=== PATIENT | female | born 1940 | race Hispanic/Latino ===

== ENCOUNTER 2018-03-10 08:23 | Observation (INO) | payer MEDICARE, OTHER ==
[2018-03-07 09:13] LABS: BASOPHILS # (AUTO) 0.1 (0.0-0.1); BASOPHILS % 0.8 % (0.0-1.0); EOSINOPHILS # (AUTO) 0.3 (0.0-0.4); EOSINOPHILS % 3.9 % (0.0-6.0); HEMATOCRIT 34.4 % (34.2-44.1); HEMOGLOBIN 11.5 g/dL (12.0-16.0); LYMPHOCYTES # (AUTO) 1.9 (1.0-3.2); LYMPHOCYTES % 25.3 % (18.0-39.1); MEAN CORPUSCULAR HEMOGLOBIN 31.1 pg (28-32); MEAN CORPUSCULAR HGB CONC 33.4 g/dL (31-35); MONOCYTES # (AUTO) 0.5 (0.2-0.8); MONOCYTES % 6.8 % (4.4-11.3); NEUTROPHILS # (AUTO) 4.8 (2.1-6.9); NEUTROPHILS % 63.1 % (38.7-80.0); PLATELET COUNT 183 x10e3/uL (140-360); RED CELL DISTRIBUTION WIDTH 12.9 % (11.7-14.4)
[2018-03-07 09:34] LABS: BLOOD UREA NITROGEN 18 mg/dL (7-26); BUN/CREATININE RATIO 24 (6-25); CALCIUM 9.4 mg/dL (8.4-10.2); CARBON DIOXIDE 29 mmol/L (22-29); CHLORIDE 104 mmol/L (98-107); CREATININE, SERUM 0.74 mg/dL (0.57-1.11); EST GLOMERULAR FILTRATION RATE > 60 ML/MIN (60-); GLUCOSE 112 mg/dL (74-118); SODIUM 141 mmol/L (136-145)
--- NOTE | 2018-03-07 09:38 | Diagnostic Imaging Report ---
PROCEDURE:CHEST 2 VIEWS TECHNIQUE:PA and lateral chest INDICATION:Preoperative evaluation for gallbladder surgery. COMPARISON:None. FINDINGS: Lungs are clear and symmetrically inflated. No pleural effusions. Normal heart size, mediastinal contour, and pulmonary vasculature. Intact skeleton with mild degenerative disc disease. Mild abdominal aortic atherosclerosis. CONCLUSION: No acute abnormality. Dictated by: Jamil Gao M.D. on 03/07/2018 at 9:38 Electronically approved by: Jamil Gao M.D. on 03/07/2018 at 9:38
[~2018-03-10] VITALS: Ht 152.4 cm; Wt 82.6 kg
[~2018-03-10 08:23] MED LIST: ALENDRONATE SOD70 MG; AMARYL2 MG; ASPIRIN81 MG; ATORVASTATIN CA40 MG PO; BUPROPION HCL75 MG PO; CALCIUM 1,0001 EACH; CELEBREX100 MG PO; CYMBALTA30 MG; GABAPENTIN100 MG; HYDROCHLOROTHIA25 MG; JANUVIA100 MG; LANTUS SOLOSTAR; LANTUS100 UNITS/; LEVOTHYROXINE200 MCG PO; LORAZEPAM1 MG; MELOXICAM15 MG PO; METFORMIN HCL500 M2 PO; MIRTAZAPINE15 MG PO; NITROGLYCERIN0.4 MG SL; NORTRIPTYLINE H25 MG; NORVASC5 MG PO; OMEGA-31000 MG; OXYBUTYNIN CHLO15 MG; PANTOPRAZOLE SO40 MG PO; PEPTO-BISMOL262 M1; PRINIVIL20 MG PO; REGLAN5 MG; RIVASTIGMINE1.5 MG PO; ROPIVACAINE 246.25 MG, EPINEPHRINE HCL 1:1000 0.5 MG, CLONIDINE HCL 0.08 MG, KETOROLAC ... INJ ONE; STOOL SOFTENER100 MG; TYLENOL PO
--- OUTSIDE RECORDS SUMMARY | 2018-03-10 08:26 | XMS REPORT ---
Author Author [facility] Address Unknown Phone Unavailable Care Team Providers Care Deputy Probation Officer Name Role Phone BETTE TURNER Unavailable Unavailable Problems This patient has no known problems. Allergies, Adverse Reactions, Alerts This patient has no known allergies or adverse reactions. Medications This patient has no known medications. Results Test Description Test Time Test Comments Text Results Atomic Results Result Comments CHEST 2 VIEWS [place] [address] Patient Name: ABHISHEK BAH MR #: [id number] : 1940 Age/Sex: 78/F Req # : [id number] Adm Physician: Ordered by: GILMA SANDERSON MD Report #: [id number] Location: OR Room/Bed: Procedure: [id number] DX/CHEST 2 VIEWS Exam Date: 03/07/18 Exam Time: 914 REPORT STATUS: Signed PROCEDURE: CHEST 2 VIEWS TECHNIQUE: PA and lateral chest INDICATION: Preoperative evaluation for gallbladder surgery. COMPARISON: None. FINDINGS: Lungs are clear and symmetrically inflated. No pleural effusions. Normal heart size, mediastinal contour, and pulmonary vasculature. Intact skeleton with mild degenerative disc disease. Mild abdominal aortic atherosclerosis. CONCLUSION: No acute abnormality. Dictated by: Gallo Gao M.D. on 05/2018 at 9:38 Electronically approved by: Gallo Gao M.D. on 03/07/2018 at 9:38 Dictated By: GALLO GAO MD 7 Transcribed By: NALINI on 03/07/18937 COPY TO: GILMA SANDERSON III
[2018-03-10] MEDS ORDERED: CELECOXIB 200 MG CAP ONE (08:30)
[2018-03-10] MEDS ORDERED: GABAPENTIN 300 MG CAP ONE (08:31)
[2018-03-10] MEDS ORDERED: CEFAZOLIN SOD 2 GM/D5W 50ML 50 ML IV ONE (08:31)
[2018-03-10] MEDS ORDERED: DEXAMETHASONE SOD PHOS 10 MG/1 ML VIAL ONE (08:31)
[2018-03-10] MEDS ORDERED: MUPIROCIN 2% OINT 22 GM TUBE ONE (08:55)
[2018-03-10] MEDS ORDERED: TRANEXAMIC ACID 1,000 MG/10 ML ML ONE (08:55)
[2018-03-10] MEDS ORDERED: BACITRACIN 50,000 UNIT VIAL ONE (08:56)
[2018-03-10] MEDS ORDERED: KETOROLAC TROMETHAMINE 30 MG/ML VIAL IV PRN (11:15)
[2018-03-10] MEDS ORDERED: DIPHENHYDRAMINE HCL INJ 50 MG/ML VIAL IM/IV PRN (11:15)
[2018-03-10] MEDS ORDERED: ONDANSETRON HCL INJ 2 MG/ML VIAL IV PRN (11:15)
[2018-03-10] MEDS ORDERED: DOCUSATE SODIUM 100 MG CAP PO PRN ×2 (11:15→21:00)
[2018-03-10] MEDS ORDERED: ACETAMINOPHEN 650 MG SUPP PR PRN (11:15)
[2018-03-10] MEDS ORDERED: HYDROCODONE/APAP 7.5MG-325MG 1 EA TAB PO PRN (11:15)
[2018-03-10] MEDS ORDERED: HYDROCODONE/APAP 5MG-325MG TAB PO PRN (11:15)
[2018-03-10] MEDS ORDERED: PROMETHAZINE HCL (IM) 25 MG/ML VIAL IM PRN (11:15)
[2018-03-10] MEDS: ACETAMINOPHEN 1000 MG/100 ML IV SCH ×2 (12:00→15:18)
--- NOTE | 2018-03-10 12:13 | Diagnostic Imaging Report ---
PROCEDURE:X-RAY LEFT KNEE, ONE OR TWO VIEWS COMPARISON:None. INDICATIONS:POST OP KNEE LEFT FINDINGS:Status post total left knee arthroplasty with intact prosthesis in adequate anatomic alignment. There is post-operative suprapatellar effusion, soft tissue swelling and gas. Multiple surgical skin slade. No acute fracture-dislocation. No definite intra-osseous lesion. CONCLUSION:Status post total left knee arthroplasty with intact prosthesis in adequate anatomic alignment. Dictated by: Peter Mccord M.D. on 03/10/2018 at 12:14 Electronically approved by: Peter Mccord M.D. on 03/10/2018 at 12:14
[2018-03-10] MEDS: SODIUM CHLORIDE 0.9% 1000ML 1,000 ML IV SCH ×2 (13:10→23:25)
[2018-03-10] MEDS ORDERED: CEFAZOLIN SOD 1 GM/NS 50ML 50 ML IV SCH (14:00)
[2018-03-10 14:38] VITALS: BP 113/57
[2018-03-10 14:40] VITALS: BP 113/57
[2018-03-10] MEDS ORDERED: LIDOCAINE HCL 2% LOCAL 20 ML VIAL ONE (17:17)
[2018-03-10] MEDS ORDERED: LIDOCAINE 2% /EPINEPHRINE 20 ML SDV INJ ONE (17:17)
[2018-03-10] MEDS ORDERED: ROPIVACAINE 0.5% 5 MG/ML 30 ML SDV ONE (17:17)
[2018-03-10] MEDS ORDERED: FENTANYL CITRATE/PF 100MCG/2 ML INJ ONE (17:22)
[2018-03-10] MEDS ORDERED: MIDAZOLAM HCL 2 MG/2 ML VIAL ONE (17:22)
[2018-03-10] MEDS: CEFAZOLIN SOD 1 GM VIAL IV SCH (17:39)
[2018-03-10] MEDS: CELECOXIB 200 MG CAP PO SCH (17:39)
[2018-03-10] MEDS: ASPIRIN 325 MG TAB PO SCH (17:39)
[2018-03-10] MEDS ORDERED: ONDANSETRON HCL INJ 2 MG/ML VIAL ONE (17:54)
[2018-03-10] MEDS ORDERED: PROPOFOL IV EMULSION 10 MG/ML 20 ML VIAL ONE (17:54)
[2018-03-10] MEDS ORDERED: LIDOCAINE HCL 2% LOCAL INJ 5 ML SDV VIAL INJ ONE (17:54)
[2018-03-10] MEDS ORDERED: DEXAMETHASONE SOD PHOS INJ 4 MG/ML VIAL ONE (17:54)
[2018-03-10] MEDS ORDERED: SEVOFLURANE INHAL SOLN 250 ML PEN BTL ONE (17:54)
[2018-03-10] MEDS ORDERED: NITROGLYCERIN 0.4 MG SUBL SL PRN (19:00)
[2018-03-10] MEDS ORDERED: DEXTROSE 50% SYRINGE 50 ML IV PRN (19:00)
[2018-03-10] MEDS ORDERED: BISMUTH SUBSALICYLATE 262 MG TAB PO PRN ×2 (19:00→19:15)
[2018-03-10] MEDS ORDERED: NON-FORMULARY MEDICATION (Meloxicam 15 MG) PO PRN (19:00)
[2018-03-10 20:00] VITALS: BP 97/47
[2018-03-10] MEDS ORDERED: MIRTAZAPINE 15 MG TAB PO SCH (21:00)
[2018-03-10] MEDS ORDERED: LANTUS SCH (21:00)
[2018-03-10] MEDS ORDERED: ZOLPIDEM TARTRATE 5 MG TAB PO PRN (21:00)
[2018-03-10] MEDS ORDERED: INSULIN DETEMIR 100 UNIT/ML PEN SQ SCH (21:00)
[2018-03-10] MEDS ORDERED: NON-FORMULARY MEDICATION (Atorvastatin Calcium 40 MG) PO SCH (21:00)
[2018-03-10] MEDS ORDERED: ATORVASTATIN 40 MG TAB PO SCH (21:00)
[2018-03-10] MEDS: RIVASTIGMINE TARTRATE 1.5 MG CAP PO SCH (23:24)
[2018-03-10] MEDS: LISINOPRIL 20 MG TAB PO SCH (23:25)
[2018-03-10] MEDS: PANTOPRAZOLE SOD 40 MG TABEC PO SCH (23:25)
[2018-03-11] VITALS: BP 124/57
[2018-03-11] MEDS: ACETAMINOPHEN 1000 MG/100 ML IV SCH ×2 (00:32→06:05)
[2018-03-11] MEDS: CEFAZOLIN SOD 1 GM VIAL IV SCH ×2 (03:50→09:00)
[2018-03-11 04:00] VITALS: BP 124/65
[2018-03-11] MEDS: INSULIN REGULAR, HUMAN 100 UNIT/1 ML 3ML VIAL SQ SCH ×3 (04:11→11:38)
[2018-03-11] MEDS ORDERED: NON-FORMULARY MEDICATION (Levothyroxine Sodium 175 MCG) PO SCH (06:00)
[2018-03-11] MEDS ORDERED: LEVOTHYROXINE SODIUM 100 MCG TAB PO SCH (06:00)
[2018-03-11] MEDS ORDERED: LEVOTHYROXINE SODIUM 75 MCG TAB PO SCH (06:00)
[2018-03-11 07:01] LABS: HEMATOCRIT 28.1 % (34.2-44.1); HEMOGLOBIN 9.3 g/dL (12.0-16.0)
[2018-03-11] MEDS: SODIUM CHLORIDE 0.9% 1000ML 1,000 ML IV SCH (07:06)
[2018-03-11] MEDS: ASPIRIN 325 MG TAB PO SCH (08:35)
[2018-03-11] MEDS: RIVASTIGMINE TARTRATE 1.5 MG CAP PO SCH (08:35)
[2018-03-11] MEDS: CELECOXIB 200 MG CAP PO SCH (08:35)
[2018-03-11] MEDS: PANTOPRAZOLE SOD 40 MG TABEC PO SCH (08:36)
[2018-03-11] MEDS: LISINOPRIL 20 MG TAB PO SCH (08:36)
[2018-03-11] MEDS ORDERED: HYDROCHLOROTHIAZIDE 25 MG TAB PO SCH (09:00)
[2018-03-11] MEDS ORDERED: METFORMIN HCL 500 MG TAB CR PO SCH ×2 (09:00→17:00)
[2018-03-11] MEDS ORDERED: BUPROPION HCL 75 MG TAB PO SCH (09:00)
[2018-03-11] MEDS ORDERED: OMEGA 3 POLYUNSAT FATTY ACIDS 1000 MG SOFTGEL PO SCH ×2 (09:00)
[2018-03-11] MEDS ORDERED: AMLODIPINE BESYLATE 5 MG TAB PO SCH (09:00)
[2018-03-11] MEDS: HYDROCODONE/APAP 5MG-325MG TAB PO PRN ×2 (09:35→14:40)
--- NOTE | 2018-03-11 10:00 | Operative Report ---
DATE OF PROCEDURE: March 10, 2018 SLASHER OPERATOR: Pollo Vanegas PA-C The patient was brought to the operating room for induction of anesthesia. Throughout this case, my PA's assistance was necessary for retraction of soft tissue and positioning of the extremity. This allows for efficient and technically successful execution of the operation and is considered medically necessary. PREOPERATIVE DIAGNOSIS: Osteoarthritis, left knee. POSTOPERATIVE DIAGNOSIS: Osteoarthritis, left knee. PROCEDURE: Left total knee arthroplasty. INDICATIONS: The patient is a 78-year-old lady who has end-stage arthritis of her left knee. She has failed conservative management and would like to proceed with a left total knee replacement. The risks and benefits of the procedure have been discussed. She states she understands and wishes to proceed. DESCRIPTION OF PROCEDURE: The patient was brought to the operating room and placed under general anesthetic. Her left lower extremity was prepped and draped in a sterile manner. She received prophylactic antibiotics, tranexamic acid and a regional block in the holding area. A preoperative time out was performed. The extremity was exsanguinated and a proximal tourniquet was inflated to 300 mmHg. An anterior approach with a medial parapatellar arthrotomy was performed. Soft tissue releases were performed to bring the knee up into flexion with the patella everted. The remnant of the cruciate ligaments was sacrificed. A Gutierrez and Nephew Bren II posterior stabilized knee system was used throughout the case. An extramedullary cutting guide was used to resect the proximal tibia. The tibial baseplate was a size #3. The central fin punch was impacted and attention was directed towards the distal femur. An intramedullary cutting guide was used to resect the distal femur in 6 degrees of valgus and rotation referenced off of a combination of landmarks, including [place]'s line, the epicondylar axis and the posterior condyles. The femoral component was noted to be a size #4. The anterior and posterior cuts were made. Trial reductions were performed. A 9 mm ultra congruent tibial insert provided optimal soft tissue balancing in both flexion and extension. The patella was resurfaced with a 29 mm x 9 mm patellar button. The thickness was checked before and after, and was right at 20 mm. Patellar tracking was noted to be concentric. The trial implants were then removed. The knee was thoroughly irrigated with a Pulsavac. A 100 mL premixed pericapsular injection was placed into the soft tissue. The components were cemented into place using a single mix of palacos cement preloaded with antibiotics. Care was taken to remove all extravasated cement. The wound was further irrigated with a pulsatile lavage while the cement cured. The arthrotomy was then closed with interrupted #1 Ethibond. The knee was put through flexion and extension to ensure a secure closure. The skin was closed with subcuticular Vicryl and slade. A sterile bandage was applied. The patient was extubated and transported to the recovery room in stable condition. Blood loss was minimal. All needle and sponge counts were correct. Job#: [id number] NICKI
[2018-03-11] MEDS ORDERED: ACETAMINOPHEN 1000 MG/100 ML IV PRN (11:15)
[2018-03-11] MEDS ORDERED: ASPIRIN325 MG PO (12:49)
[2018-03-12] MEDS ORDERED: AMLODIPINE BESYLATE 10 MG TAB PO SCH (09:00)
[2018-03-19] MEDS ORDERED: ALENDRONATE SODIUM 70 MG TAB PO SCH (19:00)
== END 2018-03-11 16:25 | disposition home or self-care (01) ==
LOC: OR 08:23 → MED/SURG 12:18
PROVIDERS: ADMIT Specialist; ATTEND Specialist
DX: M17.12 Unilateral primary osteoarthritis, left knee (principal); E11.9 Type 2 diabetes mellitus without complications; I10 Essential (primary) hypertension; K29.70 Gastritis, unspecified, without bleeding; Z96.651 Presence of right artificial knee joint; D64.9 Anemia, unspecified; E03.9 Hypothyroidism, unspecified; E78.5 Hyperlipidemia, unspecified; R01.1 Cardiac murmur, unspecified
CPT/HCPCS: 27447; 36415 ×3; 71046; 73560; 80048; 82948 ×2; 85014; 85018; 85025; 86850 ×2; 86900 ×2; 86920 ×2; 93005; 97116; 97139; 97161; 97530 ×2; G0378 ×2; G8978; G8979; J0171; J0690 ×2; J1100 ×2; J1885 ×2; J2001 ×3; J2250; J2405; J2795; J7030

== ENCOUNTER 2018-03-15 08:47 | Emergency (ER) | payer OTHER ==
[~2018-03-15] VITALS: Ht 152.4 cm; Wt 82.6 kg
[~2018-03-15 08:47] MED LIST changes: +ASPIRIN325 MG PO; -ROPIVACAINE 246.25 MG, EPINEPHRINE HCL 1:1000 0.5 MG, CLONIDINE HCL 0.08 MG, KETOROLAC ... INJ ONE
--- OUTSIDE RECORDS SUMMARY | 2018-03-15 08:50 | XMS REPORT | Continuity of Care Document ---
Author Author [facility] Organization [facility] Address [address] [place] [address] Phone Unavailable Care Team Providers Care Hr Manager Name Role Phone GALLO JONES DO PCP Insurance Providers Guarantor Elizabeth Bah Address [address] [place] [address] [address] [place] [address] Email [email or web address] Policy Number [id number] Subscriber's Name Elizabeth Bah A Relationship 18 Self / Same As Patient Effective Date 17 [facility] Policy Number [id number] Subscriber's Name Elizabeth Bah A Relationship 18 Self / Same As Patient Effective Date 17 Advance Directives Directive Response Recorded Date/Time Does the patient have an advance directive? No 03/10/18 1:55pm If yes, is advance directive on file with [facility]? No 03/10/18 1:55pm If not on file with [facility] will patient provide a copy? No 03/10/18 1:55pm Do you have a Directive to Physician? No 03/07/18 8:06am Do you have a Medical Power of Photographic Reproduction Technician? No 03/07/18 8:06am Do you have an out of hospital Do Not Resuscitate Order? No 03/07/18 8:06am Do you have any special needs we should be aware of? No 03/07/18 8:06am Do you have a support person here with you today? Yes 03/07/18 8:06am Did patient receive Notice of Privacy Practices? Yes 03/07/18 8:06am Did patient receive patient rights and responsibilities? Yes 03/07/18 8:06am Problems No problem information available. Medications Current Home Medications Medication Dose Units Route Directions Days Qty Instructions Start Date Alendronate Sodium 70 Mg Tablet SATURDAY ONLY Amlodipine Besylate (Norvasc) 5 Mg Tab 10 Mg Oral Daily Aspirin 325 Mg Tablet 325 Mg Oral Twice A Day 21 Days 03/11/18 Atorvastatin Calcium 40 Mg Tablet 40 Mg Oral Bedtime Bismuth Subsalicylate (Pepto-Bismol) 262 Mg Tablet Bupropion Hcl 75 Mg Tablet 75 Mg Oral Daily 30 Tab Calcium Carbonate/Vitamin D3 (Calcium 1,000 + D3 Caplet) 1 Each Tablet Celecoxib (Celebrex*) 100 Mg Capsule 200 Mg Oral Every 12 Hours as needed for Pain 30 Cap Docusate Sodium (Stool Softener) 100 Mg Capsule Hydrochlorothiazide 25 Mg Tablet 25 Mg Daily 30 Tab Lantus Solostar 55 Units Today At 9:00PM Levothyroxine Sodium 200 Mcg Tablet 175 Mcg Oral Today At 6:00AM Lisinopril (Prinivil) 20 Mg Tablet 20 Mg Oral Every 12 Hours Metformin Hcl (Metformin Hcl Er) 500 Mg Tab.er.24 500 Mg Oral Twice A Day Mirtazapine 15 Mg Tab 7.5 Mg Oral Bedtime Nitroglycerin 0.4 Mg Tab.subl 0.4 Mg Sublingual Every 5 Minutes as needed for Prn Homeworth-3 Fatty Acids (Homeworth-3) 1,000 Mg Capsule Pantoprazole Sodium (Protonix) 40 Mg Tablet.dr 40 Mg Oral Every 12 Hours BEFORE BREAKFAST 0600 1800 Rivastigmine Tartrate (Rivastigmine) 1.5 Mg Capsule 1.5 Mg Oral Every 12 Hours 30 Cap Tylenol 500 Mg Oral Past Home Medications Medication Directions Ordered Status Aspirin 81 Mg Tab.chew, Discontinued Duloxetine Hcl (Cymbalta) 30 Mg Capsule.dr, Discontinued Gabapentin 100 Mg Capsule, Discontinued Glimepiride (Amaryl) 2 Mg Tablet, Discontinued Insulin Glargine (Lantus) 100 Units/Ml Ml, Discontinued Lorazepam 1 Mg Tablet, Discontinued Meloxicam 15 Mg Tablet, 15 Mg Oral Daily as needed for Pain Discontinued Metoclopramide Hcl (Reglan) 5 Mg Tablet, Discontinued Nortriptyline Hcl 25 Mg Capsule, Discontinued Oxybutynin Chloride (Oxybutynin Chloride Er) 15 Mg Tab.er.24, Discontinued Sitagliptin Phosphate (Januvia) 100 Mg Tablet, Discontinued Social History Social History Problem Response Recorded Date/Time Onset Date Status Hx Alcohol Use Yes 03/10/2018 1:55pm Not Applicable Not Applicable Smoking Status Start Date Stop Date Former smoker Hospital Discharge Instructions No hospital discharge instruction information available. Plan of Care Discharge Date 03/11/18 4:25pm Disposition HOME, SELF-CARE Instructions/Education Provided Post Operative Pain Prescriptions See Medication Section Referrals BETTE TURNER MD (Orthopedic) Order Date: 03/20/2018 Entered Date: 03/11/2018 12:49pm Address: [address] [place] [address] [place] [id number] Additional Instructions/Education Ok to shower and wash wound gently starting tomorrow (Saturday - 03/12/18) Change bandage daily Aspirin 325mg twice a day x 3 weeks for prevention Functional Status Query Response Date Recorded FUNCTIONAL STATUS . March 10, 2018 3:12pm Assistive Devices Straight Cane March 10, 2018 2:40pm Ambulation Ability Independent March 10, 2018 2:40pm Toileting Ability Independent March 10, 2018 2:40pm Allergies, Adverse Reactions, Alerts No known allergies. Immunizations No immunization information available. Vital Signs Acute Vital Signs Vital Response Date/Time Temperature (Fahrenheit) 96.4 degrees F (97.6 - 99.5) 03/11/2018 4:00am Pulse Pulse Rate (adult) 70 bpm (60 - 90) 03/11/2018 7:39am Respiratory Rate 15 bpm (12 - 24) 03/11/2018 7:39am Blood Pressure 124/65 mm Hg 03/11/2018 4:00am Height 5 ft 0 in 03/10/2018 1:55pm Weight 182 lb 03/10/2018 1:55pm Body Mass Index 35.5 kg/m^2 03/10/2018 1:55pm Results Laboratory Results Test Name Result Units Flags Reference Collection Date/Time Result Date/ Time Comments White Blood Count 7.63 x10e3/uL 4.8-10.8 03/07/2018 9:03/07/2018 9 :17am Red Blood Count 3.70 x10e6/uL 3.6-5.1 03/07/2018 9:03/07/2018 9: 17am Hemoglobin 9.3 g/dL L 12.0-16.0 03/11/2018 6:30am 03/11/2018 7:05am Hematocrit 28.1 % L 34.2-44.1 03/11/2018 6:30am 03/11/2018 7:05am Mean Corpuscular Volume 93.0 fL 81-99 03/07/2018 9:03/07/2018 9: 17am Mean Corpuscular Hemoglobin 31.1 pg 28-32 03/07/2018 9:03/07/2018 9:17am Mean Corpuscular Hemoglobin Concent 33.4 g/dL 31-35 03/07/2018 9:03/07/2018 9:17am Red Cell Distribution Width 12.9 % 11.7-14.4 03/07/2018 9:2017 9:17am Platelet Count 183 x10e3/uL 140-360 03/07/2018 9:03/07/2018 9: 17am Neutrophils (%) (Auto) 63.1 % 38.7-80.0 03/07/2018 9:03/07/2018 9: 17am Lymphocytes (%) (Auto) 25.3 % 18.0-39.1 03/07/2018 9:03/07/2018 9: 17am Monocytes (%) (Auto) 6.8 % 4.4-11.3 03/07/2018 9:03/07/2018 9: 17am Eosinophils (%) (Auto) 3.9 % 0.0-6.0 03/07/2018 9:03/07/2018 9: 17am Basophils (%) (Auto) 0.8 % 0.0-1.0 03/07/2018 9:03/07/2018 9:17am IM GRANULOCYTES % 0.1 % 0.0-1.0 03/07/2018 9:03/07/2018 9:17am Neutrophils # (Auto) 4.8 2.1-6.9 03/07/2018 9:03/07/2018 9:17am Lymphocytes # (Auto) 1.9 1.0-3.2 03/07/2018 9:03/07/2018 9:17am Monocytes # (Auto) 0.5 0.2-0.8 03/07/2018 9:03/07/2018 9:17am Eosinophils # (Auto) 0.3 0.0-0.4 03/07/2018 9:03/07/2018 9:17am Basophils # (Auto) 0.1 0.0-0.1 03/07/2018 9:03/07/2018 9:17am Absolute Immature Granulocyte (auto 0.01 x10e3/uL 0-0.1 03/07/2018 9: 03/07/2018 9:17am Sodium Level 141 mmol/L 136-145 03/07/2018 9:03/07/2018 9:34am Potassium Level 4.0 mmol/L 3.5-5.1 03/07/2018 9:03/07/2018 9:34am Chloride Level 104 mmol/L 98-107 03/07/2018 9:03/07/2018 9:34am Carbon Dioxide Level 29 mmol/L 22-29 03/07/2018 9:03/07/2018 9: 34am Anion Gap 12.0 mmol/L 8-16 03/07/2018 9:03/07/2018 9:34am Blood Urea Nitrogen 18 mg/dL 7-26 03/07/2018 9:03/07/2018 9:34am Creatinine 0.74 mg/dL 0.57-1.11 03/07/2018 9:03/07/2018 9:34am BUN/Creatinine Ratio 24 6-25 03/07/2018 9:03/07/2018 9:34am Estimat Glomerular Filtration Rate > 60 ML/MIN 60- 03/07/2018 9: 9:34am Ranges were taken from the National Kidney Disease Education Program and the National Kidney Foundation literature. Reference ranges: 60 or greater: Normal 16-59 (for 3 consecutive months): Chronic kidney disease 15 or less: Kidney failure Glucose Level 112 mg/dL 74-118 03/07/2018 9:10am 03/07/2018 9:34am Calcium Level 9.4 mg/dL 8.4-10.2 03/07/2018 9:10am 03/07/2018 9:34am Bedside Glucose 152 mg/dL H 70-120 03/11/2018 3:27pm 03/11/2018 4:20pm Meter ID: [id number] Procedures Procedure Status Date Provider(s) Total replacement of left knee joint Completed 03/10/18 BETTE TURNER MD X-ray of chest, two views Active 03/07/18 GILMA SANDERSON III Encounters Encounter Location Arrival/Admit Date Discharge/Depart Date Attending Provider Discharged Inpatient (obs) [facility] 03/10/18 12:18pm 4:25pm BETTE TURNER MD
[2018-03-15] MEDS ORDERED: HYDROCODONE/APAP 7.5MG-325MG 1 EA TAB PO PRN (09:00)
--- NOTE | 2018-03-15 10:53 | Diagnostic Imaging Report ---
KNEE LEFT THREE VIEWS HISTORY: Pain. Fall COMPARISON: Left knee radiographs 03/10/2018 FINDINGS: Bones: No acute displaced fracture. Left knee arthroplasty. No evidence of hardware fracture or loosening. Osseous alignment is within normal limits. Joints: The joint spaces are well-maintained. Soft tissues: Persistent skin slade overlying. Decreased soft tissue postoperative emphysema. IMPRESSION: No acute radiographic abnormality. Signed by: DR. Vicente Bang MD on 03/15/2018 10:49 AM
== END 2018-03-15 11:16 | disposition home or self-care (01) ==
LOC: ER 08:47
DX: M25.562 Pain in left knee (principal); Z96.652 Presence of left artificial knee joint; W01.0XXA Fall on same level from slipping, tripping and stumbling without subsequent striking against object, initial encounter; Y92.009 Unspecified place in unspecified non-institutional (private) residence as the place of occurrence of the external cause; F03.90 Unspecified dementia, unspecified severity, without behavioral disturbance, psychotic disturbance, mood disturbance, and anxiety; R01.1 Cardiac murmur, unspecified
CPT/HCPCS: 93005; 99284

== ENCOUNTER 2018-06-27 08:00 | Outpatient (RCR) | payer MEDICARE, OTHER | END 2018-07-01 | LOC: PT 08:00 | PROVIDERS: ATTEND Specialist | DX: Z96.652 Presence of left artificial knee joint (principal); Z47.1 Aftercare following joint replacement surgery; M25.562 Pain in left knee; M25.662 Stiffness of left knee, not elsewhere classified; M62.81 Muscle weakness (generalized) | CPT/HCPCS: 97110 ×9; 97139; 97162; G8981 ×2; G8982 ×2 ==

== ENCOUNTER 2018-07-04 07:56 | Outpatient (RCR) | payer MEDICARE, OTHER | END 2018-08-01 | LOC: PT 07:56 | PROVIDERS: ATTEND Specialist | DX: Z96.652 Presence of left artificial knee joint (principal); Z47.1 Aftercare following joint replacement surgery; M25.562 Pain in left knee; M25.662 Stiffness of left knee, not elsewhere classified; M62.81 Muscle weakness (generalized) | CPT/HCPCS: 97010; 97110 ×2; G8982; G8983 ==

== ENCOUNTER 2018-08-28 22:46 | Emergency (ER) | payer MEDICARE, OTHER ==
[~2018-08-28] VITALS: Ht 152.4 cm; Wt 82.6 kg
[~2018-08-28 22:46] MED LIST changes: -CALCIUM 1,0001 EACH; +CALCIUM 1,0001 EACH PO; -LANTUS SOLOSTAR; +LANTUS SOLOSTAR SQ; -OMEGA-31000 MG; +OMEGA-31000 MG PO; -PEPTO-BISMOL262 M1; +PEPTO-BISMOL262 M1 PO; -RIVASTIGMINE1.5 MG PO; +RIVASTIGMINE1.5 MG TOP; -STOOL SOFTENER100 MG; +STOOL SOFTENER100 MG PO
[2018-08-28] MEDS ORDERED: ASPIRIN 81 MG CHEW TAB PO ONE (23:15)
[2018-08-28 23:21] LABS: BASOPHILS # (AUTO) 0.1 (0.0-0.1); BASOPHILS % 0.7 % (0.0-1.0); EOSINOPHILS # (AUTO) 0.2 (0.0-0.4); EOSINOPHILS % 2.2 % (0.0-6.0); HEMATOCRIT 31.4 % (34.2-44.1); HEMOGLOBIN 10.3 g/dL (12.0-16.0); LYMPHOCYTES # (AUTO) 1.5 (1.0-3.2); LYMPHOCYTES % 20.2 % (18.0-39.1); MEAN CORPUSCULAR HEMOGLOBIN 30.7 pg (28-32); MEAN CORPUSCULAR HGB CONC 32.8 g/dL (31-35); MEAN CORPUSCULAR VOLUME 93.7 fL (81-99); MONOCYTES # (AUTO) 0.5 (0.2-0.8); MONOCYTES % 6.2 % (4.4-11.3); NEUTROPHILS # (AUTO) 5.1 (2.1-6.9); NEUTROPHILS % 70.4 % (38.7-80.0); PLATELET COUNT 226 x10e3/uL (140-360); RED BLOOD COUNT 3.35 x10e6/uL (3.6-5.1)
[2018-08-28 23:33] LABS: ALANINE AMINOTRANSFERASE 18 IU/L (0-55); ALBUMIN 3.2 g/dL (3.5-5.0); ALBUMIN/GLOBULIN RATIO 0.9 (0.8-2.0); ALKALINE PHOSPHATASE 78 IU/L (40-150); ANION GAP 14.5 mmol/L (8-16); BLOOD UREA NITROGEN 13 mg/dL (7-26); BUN/CREATININE RATIO 17 (6-25); CALCIUM 8.7 mg/dL (8.4-10.2); CARBON DIOXIDE 25 mmol/L (22-29); CHLORIDE 105 mmol/L (98-107); CREATINE KINASE 94 IU/L (29-168); CREATININE, SERUM 0.76 mg/dL (0.57-1.11); EST GLOMERULAR FILTRATION RATE > 60 ML/MIN (60-); GLUCOSE 277 mg/dL (74-118); POTASSIUM 3.5 mmol/L (3.5-5.1); SODIUM 141 mmol/L (136-145)
--- NOTE | 2018-08-28 23:47 | Diagnostic Imaging Report ---
EXAM: CHEST SINGLE (PORTABLE), AP 1 view INDICATION: Chest pain COMPARISON: None FINDINGS: LINES/TUBES: None LUNGS: No consolidations or edema. PLEURA: No effusions or pneumothorax. HEART AND MEDIASTINUM: Mild cardiac enlargement. BONES AND SOFT TISSUES: No acute findings. IMPRESSION: No acute thoracic abnormality. Signed by: Dr. Miri Mchugh M.D. on 08/28/2018 11:44 PM
[2018-08-29] MEDS ORDERED: MELOXICAM7.5 MG PO (00:29)
[2018-08-29] MEDS ORDERED: EXELON1 EAC1 TOP (00:31)
[2018-08-29] MEDS ORDERED: ASPIRIN PO (00:36)
[2018-08-29] MEDS ORDERED: QUETIAPINE FUMA25 MG PO (00:40)
[2018-08-29] MEDS ORDERED: ASPIRIN 81 MG CHEW TAB PO ONE (01:30)
[2018-08-29 04:39] LABS: CREATINE KINASE MB 1.2 ng/mL (0-5.0)
[2018-08-29 05:28] VITALS: BP 149/63
== END 2018-08-29 06:30 ==
LOC: ER 22:46
DX: R07.89 Other chest pain (principal)
CPT/HCPCS: 36415; 71045; 80053; 82550; 82553; 84484; 85025; 93005; 99284

== ENCOUNTER 2019-08-04 19:02 | Emergency (ER) | payer MEDICARE, OTHER ==
[~2019-08-04] VITALS: Ht 152.4 cm; Wt 82.6 kg
[~2019-08-04 19:02] MED LIST changes: +ASPIRIN PO; +EXELON1 EAC1 TOP; +MELOXICAM7.5 MG PO; +QUETIAPINE FUMA25 MG PO
--- OUTSIDE RECORDS SUMMARY | 2019-08-04 19:09 | XMS REPORT | CCD ---
Author Author Auto Generated Organization [facility] Address Unknown Phone Unavailable Care Team Providers Care Car Barn Laborer Name Role Phone CP Unavailable Zhang Canada CP Unavailable Oralia Devlin CP Unavailable ChartServer, Login CP Unavailable Debra Sharpe CP [phone] Jennifer Huntley CP Sonny Chavez CP Unavailable Tori Bell CP Unavailable SYSTEM, SYSTEM CP Unavailable Otf Vizcarra CP Lenny Su CP [id number] Elvia Khan CP [phone] Sky Mcmullen CP Unavailable Eunice Cárdenas CP Jorge Peralta CP Elvia Zaragoza CP Unavailable Allergies, Adverse Reactions, Alerts Substance Reaction Status NKDA ?? Active Problem List Condition Effective Dates Status Anxiety ?? Active Chest pain ?? Active Depression ?? Active Diabetes mellitus ?? Active Hyperlipidemia ?? Active Hypertension ?? Active Thyroidectomy ?? Active Medications Medication Instructions Start Date End Date Status tramadol 50 mg oral 50 mg, PO, Q4-6H, PRN, 20 tab, 08/04/2011 08/08/2011 Ordered tablet Pain, Substitution Allowed pneumococcal 0.5 ml, Route: IM, Drug Form: INJ, 07/04/2011 07/06/2011 Completed 23-valent vaccine ONCALL, Start date: 07/04/11 18:10:51, Duration: 1 doses or times Immunizations Vaccine Date Status pneumococcal 23-valent vaccine 07/06/2011 Auth (Verified) Vital Signs Most recent to oldest [Reference Range]: 1 2 Height 162.56 cm (08/04/2011 16:05:00) ? Temperature Oral [96.4-99.1 DegF] 98.0 DegF (08/04/2011:26:00) ?? 98.0 DegF (08/04/2011 16:05:00) ?? Systolic Blood Pressure [90-140 mmHg] 129 mmHg (08/04/2011 17:26:00) ?? 138 mmHg (08/04/2011 16:05:00) ?? Diastolic Blood Pressure [60-90 mmHg] 65 mmHg (08/04/2011 17:26:00) ?? 70 mmHg (08/04/2011 16:05:00) ?? Respiratory Rate [14-20 BRMIN] 16 BRMIN (08/04/2011 17:26:00) ?? 16 BRMIN (08/04/2011 16:05:00) ?? Peripheral Pulse Rate [60-100 bpm] 59 bpm *LOW* (08/04/2011 17:26:00) ?? 62 bpm (08/04/2011 16:05:00) ?? Weight 87.273 kg (08/04/2011 16:05:00) ? Procedures Procedures Date Related Diagnosis Emergency department visit for the evaluation and management 08/04/2011 00:00:00 ?? of a patient, which requires these 3 katz components: A detailed history; A detailed examination; and Medical decision making of moderate complexity. Counseling and/or coordination of care with o
--- OUTSIDE RECORDS SUMMARY | 2019-08-04 19:09 | XMS REPORT | CCD ---
Author Author Auto Generated Organization [facility] Address Unknown Phone Unavailable Care Team Providers Care Harness Cleaner Name Role Phone Hansel Reyes CP Allergies, Adverse Reactions, Alerts Substance Reaction Status NKDA Active Problem List Condition Effective Dates Status Anxiety Active Chest pain Active Depression Active Diabetes mellitus Active Hyperlipidemia Active Hypertension Active Thyroidectomy Active Medications Medication Instructions Start Date End Date Status pneumococcal 0.5 ml, Route: IM, Drug Form: INJ, 07/04/2011 07/06/2011 Completed 23-valent vaccine ONCALL, Start date: 07/04/11 18:10:51, Duration: 1 doses or times Immunizations Vaccine Date Status pneumococcal 23-valent vaccine 07/06/2011 Auth (Verified) Vital Signs Most recent to oldest [Reference Range]: 1 Height 162.56 cm (02/14/2012 07:32:00) Weight 90.455 kg (02/14/2012 07:32:00)
--- OUTSIDE RECORDS SUMMARY | 2019-08-04 19:09 | XMS REPORT | CCD ---
Author Author Auto Generated Organization [facility] Address Unknown Phone Unavailable Care Team Providers Care Coke Inspector Name Role Phone CP Unavailable Zhang Canada CP Unavailable Oralia Devlin CP Unavailable ChartServer, Login CP Unavailable Debra Sharpe CP [phone] Jennifer Huntley CP Sonny Chavez CP Unavailable Tori Bell CP Unavailable SYSTEM, SYSTEM CP Unavailable Otf Vizcarra CP Lenny Su CP [id number] Elvia Khan CP [phone] Sky Mcmullen CP Unavailable Eunice Cárdenas CP [...] ? Temperature Oral [96.4-99.1 DegF] 98.0 DegF (08/04/2011 17:26:00) ?? 98.0 DegF (08/04/2011 16:05:00) ?? Systolic Blood Pressure [90-140 mmHg] 129 mmHg (08/04/2011 17:26:00) ?? 138 mmHg (08/04/2011 16:05:00) ?? Diastolic Blood Pressure [60-90 mmHg] 65 mmHg (08/04/2011 17:26:00) ?? 70 mmHg (08/04/2011 16:05:00) ?? Respiratory Rate [14-20 BRMIN] 16 BRMIN (08/04/2011 17:26:00) ?? 16 BRMIN (08/04/2011 16:05:00) ?? Peripheral Pulse Rate [60-100 bpm] 59 bpm *LOW* (08/04/2011:26:00) ?? 62 bpm (08/04/2011 16:05:00) ?? Weight [...]
--- OUTSIDE RECORDS SUMMARY | 2019-08-04 19:09 | XMS REPORT | Continuity of Care Document ---
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 Name Role Phone [facility] [employer] Unavailable Unavailable Problems Problem Status Onset Date Classification Date Reported Comments Source Traumatic subarachnoid hemorrhage without loss of consciousness, initial encounter 10/30/2018 03/04/2019 [facility] Traumatic subdural hemorrhage with loss of consciousness of unspecified duration, initial encounter 09/10/2018 03/24/2019 VASHTI Olmos S06.5X9A - TRAUM SUBDR HEM W LOC OF UNSP Active 08/29/2018 [facility]ASHT[facility] Olmos SAH Active 08/11/2018 [facility] CHEST PAIN AND SOB Active 08/25/2013 [facility] CHEST PAIN Active 08/25/2013 [facility] FALL 1 DAY AGO Active 07/13/2012 [facility] FALL - LACERATION Active 07/12/2012 [facility] RIGHT KNEE OSTEOARTHRITIS Active 04/25/2012 [facility] BUG BITE Active 02/14/2012 [facility] FOOT PAIN-LEFT Active 08/04/2011 [facility] CHEAT PAIN,PARESTHESIA,HYPERGLYCEMIA Active 07/04/2011 [facility] FB IN EYE Active 03/06/2002 [facility] Anxiety Active Problem 08/28/2013 [facility] [place] Chest pain Active Problem 08/28/2013 [facility] Depression Active Problem 08/28/2013 [facility] Diabetes mellitus Active Problem 08/28/2013 [facility] Hyperlipidemia Active Problem 08/28/2013 [facility] Hypertension Active Problem 08/28/2013 [facility] Thyroidectomy Active Problem 08/28/2013 [facility] Osteoarthritis Active Problem 05/18/2012 [facility] Pain Active Problem 08/28/2013 [facility] Anxiety (finding) Active Problem 05/28/2019 [facility] [place] [place] [facility], VASHTI Olmos, VASHTI Acharya Chest pain (finding) Active Problem 05/28/2019 [facility], AV[facility]HT[facility] Olmos, [facility] [place] Depressive disorder (disorder) Active Problem 05/28/2019 [facility], VASHTI Olmos, [facility] [place] Diabetes mellitus (disorder) Active Problem 05/28/2019 [facility], VASHTI Olmos, [facility] [place] DM II [Diabetes mellitus type II](Confirmed) Resolved Problem 05/28/2019 [facility], VASHTI Olmos, [facility] [place] Essential hypertension (disorder) Resolved Problem 05/28/2019 [facility], VASHTI Olmos, [facility] [place] Hyperlipidemia (disorder) Active Problem 05/28/2019 [facility], VASHTI Olmos, [facility] [place] Hypertensive disorder, systemic arterial (disorder) Active Problem 05/28/2019 [facility], VASHTI Olmos, [facility] [place] Hypothyroidism (disorder) Resolved Problem 05/28/2019 [facility], VASHTI Olmos, [facility] [place] Osteoarthritis (disorder) Active Problem 05/28/2019 [facility], VASHTI Olmos, [facility] [place] Pain (finding) Active Problem 05/28/2019 [facility], VASHTI Olmos, [facility] [place] Thyroidectomy (procedure) Active Problem 05/28/2019 [facility], VASHTI Olmos, [facility] [place] Osteoarthritis Active Problem 08/28/2013 [facility] DM II [Diabetes mellitus type II] Resolved Problem 08/28/2013 [facility] HTN Resolved Problem 08/28/2013 [facility] Hypothyroid Resolved Problem 08/28/2013 [facility] Urinary tract infection, site not specified 03/04/2019 [facility] Precipitous drop in hematocrit 03/04/2019 [facility] Dementia in other diseases classified elsewhere without behavioral disturbance 03/04/2019 [facility] Alzheimer's disease, unspecified 03/04/2019 [facility] Essential (primary) hypertension 03/04/2019 [facility] Hypothyroidism, unspecified 03/04/2019 [facility] Fall on same level from slipping, tripping and stumbling without subsequent striking against object, initial encounter 03/04/2019 [facility] Other chronic pain 03/04/2019 [facility] Coma scale, best motor response, localizes pain, at hospital admission 03/04/2019 [facility] Coma scale, eyes open, to sound, at hospital admission 03/04/2019 [facility] Coma scale, best verbal response, incomprehensible words, at hospital admission 03/04/2019 [facility] Hyperlipidemia, unspecified 03/04/2019 [facility] alf (current) use of aspirin 03/04/2019 [facility] Type 2 diabetes mellitus with hyperglycemia 03/04/2019 [facility] Hypokalemia 03/04/2019 [facility] Dysphagia, unspecified 03/04/2019 [facility] 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 03/04/2019 [facility] ADMINISTRTVE ENCOUNT NOS Active [facility] Medications Medication Details Route Status Patient Instructions Ordering Provider Order Date Source Levetiracetam 500 MG Oral Tablet 500 mg=1 tab, PO, Q12H, # 6 tab, 0 Refill(s), Pharmacy: [facility] [id number] Active 08/15/2018 [facility] insulin, isophane 10 unit, 0.1 mL, Route: SUB-Q, Drug form: INJ, Bedtime, Dosing Weight 80.455, kg, Start date: 08/14/18 21:00:00 CDT, Duration: 30 day, Stop date: 09/12/18 21:00:00 CDTNotes: Roll in palms of hands gently; Do not shake vigorously. (Same as: Humulin N) Do not hold insulin without contacting prescriber WASTE: F/P - Black; E - Municipal Trash Bin Stable for 28 days at room temperature Expires in days from Date No Longer Active 08/15/2018 [facility] Haldol 0.5 mg, 0.1 mL, Route: IV, Drug form: INJ, Q4H, Dosing Weight 80.455, kg, PRN as needed for agitation, Start date: 08/14/18 17:29:00 CDT, Duration: 30 day, Stop date: 09/13/18 17:28:00 CDTNotes: (Same as: Haldol) No Longer Active 08/14/2018 [facility] Seroquel 25 mg, 1 tab, Route: PO, Drug form: TAB, Q4H, Dosing Weight 80.455, kg, PRN Agitation, Start date: 08/14/18 17:29:00 CDT, Duration: 30 day, Stop date: 09/13/18 17:28:00 CDTNotes: (Same as: SEROquel) No Longer Active 08/14/2018 [facility] Furosemide 20 MG Oral Tablet [Lasix] 20 mg, 1 tab, Route: PO, Drug form: TAB, ONCE, Dosing Weight 80.455, kg, Start date: 08/14/18 16:03:00 CDT, Stop date: 08/14/18 16:03:00 CDTNotes: (Same as: Lasix) May cause GI upset. Give with food or milk. Inactive 08/14/2018 [facility] Ibuprofen 600 mg, 1 tab, Route: PO, Drug form: TAB, Q6H, Dosing Weight 80.455, kg, PRN Pain Score 4-6, Start date: 08/14/18 13:11:00 CDT, Duration: 30 day, Stop date: 09/13/18 13:10:00 CDTNotes: (Same as: Motrin) "Do Not Crush" Take with food. No Longer Active 08/14/2018 [facility] Tylenol 650 mg, 2 tab, Route: PO, Drug form: TAB, Q4H, Dosing Weight 80.455, kg, PRN Pain Score 1-3, Start date: 08/14/18 13:09:00 CDT, Duration: 30 day, Stop date: 09/13/18 13:08:00 CDTNotes: Do not exceed 4 gm/day. (Same as: Tylenol) No Longer Active 08/14/2018 [facility] Amlodipine 10 mg, 1 tab, Route: PO, Drug form: TAB, Daily, Dosing Weight 80.455, kg, Start date: 08/14/18 9:00:00 CDT, Duration: 30 day, Stop date: 09/12/18 9:00:00 CDTNotes: (Same as: Norvasc) No Longer Active 08/14/2018 [facility] insulin, isophane 20 unit, 0.2 mL, Route: SUB-Q, Drug form: INJ, Before Breakfast, Dosing Weight 80.455, kg, Start date: 08/14/18 7:30:00 CDT, Duration: 30 day, Stop date: 09/12/18 7:30:00 CDTNotes: Roll in palms of h ands gently; Do not shake vigorously. (Same as: Humulin N) Do not hold insulin without contacting prescriber WASTE: F/P - Black; E - Municipal Trash Bin Stable for 28 days at room temperature Expires in days from Date No Longer Active 08/14/2018 [facility] insulin, isophane 15 unit, Route: SUB-Q, Q8H, Dosing Weight 80.455, kg, Start date: 08/13/18 16:00:00 CDT, Duration: 30 day, Stop date: 09/12/18 8:00:00 CDT Inactive 08/13/2018 [facility] Exelon 4.6 mg, 1 patch, Route: TOP, Drug form: ERFILM, Q24H, Start date: 08/13/18 15:00:00 CDT, Duration: 30 day, Stop date: 09/11/18 15:00:00 CDTNotes: Same as Exelon "Remove old patch before application of new patch" No Longer Active 08/13/2018 [facility] Alendronic acid 70 MG Oral Tablet 70 mg=1 tab, PO, Q7D, SATURDAY, 0 Refill(s) Active 08/13/2018 [facility] insulin, isophane 20 unit, 0.2 mL, Route: SUB-Q, Drug form: INJ, Q12H, Dosing Weight 80.455, kg, Start date: 08/13/18 10:02:00 CDT, Duration: 30 day, Stop date: 09/12/18 9:00:00 CDTNotes: Roll in palms of hands gently; Do not shake vigorously. (Same as: Humulin N) Do not hold insulin without contacting prescriber WASTE: F/P - Black; E - Municipal Trash Bin Stable for 28 days at room temperature Expires in days from Date No Longer Active 08/13/2018 [facility] potassium chloride 20 mEq, 15 mL, Route: PO, Drug form: LIQ, ONCE, Dosing Weight 80.455, kg, Start date: 08/13/18 9:13:00 CDT, Stop date: 08/13/18 9:13:00 CDTNotes: (Same as: Potassium Chloride) Inactive 08/13/2018 [facility] potassium chloride 20 mEq oral tablet, extended release 20 mEq, 1 tab, Route: PO, Drug form: ERTAB, ONCE, Dosing Weight 80.455, kg, Start date: 08/13/18 8:07:00 CDT, Stop date: 08/13/18 8:07:00 CDTNotes: (Same as: K- Dur 20) "Do Not Crush" For patients unable to swallow tablet, dissolve in one half glass of water. Allow about 2 minutes for the tablets to disintegrate. Stir before giving to prepare slurry and administer. Please exclude Patient’s with feeding tube less than 14 [place] (Dobhoff, J-tube etc) and pediatric and patients. With food and full glass of water Inactive 08/13/2018 [facility] Hydralazine 10 mg, 1 tab, Route: PO, Drug form: TAB, Q6H, Dosing Weight 80.455, kg, Start date: 08/12/18 18:00:00 CDT, Duration: 30 day, Stop date: 09/11/18 12:00:00 CDT Inactive 08/12/2018 [facility] pantoprazole 40 mg, 1 tab, Route: PO, Drug form: ECTAB, Before Dinner, Dosing Weight 81.364, kg, Start date: 08/12/18 16:30:00 CDT, Duration: 30 day, Stop date: 09/10/18 16:30:00 CDTNotes: Tablet should not be ch ewed or crushed. (Same as: Protonix) No Longer Active 08/12/2018 [facility] Hydralazine 10 mg, 1 tab, Route: PO, Drug form: TAB, Q6Hnow, Dosing Weight 80.455, kg, Priority: NOW, Start date: 08/12/18 15:27:00 CDT, Duration: 30 day, Stop date: 09/11/18 12:00:00 CDTNotes: (Same as: Apresoline) May interfere w/enteral feedings. Take With Food No Longer Active 08/12/2018 [facility] Lisinopril 20 mg, 1 tab, Route: PO, Drug form: TAB, Daily, Dosing Weight 80.455, kg, Priority: NOW, Start date: 08/12/18 9:21:00 CDT, Duration: 30 day, Stop date: 09/11/18 9:00:00 CDTNotes: (Same as: Prinivil, Zestril) No Longer Active 08/12/2018 [facility] Amlodipine 5 mg, 1 tab, Route: PO, Drug form: TAB, Daily, Dosing Weight 80.455, kg, Priority: NOW, Start date: 08/12/18 9:21:00 CDT, Duration: 30 day, Stop date: 09/11/18 9:00:00 CDTNotes: (Same as: Norvasc) No Longer Active 08/12/2018 [facility] heparin sodium, porcine 2500 UNT/ML Injectable Solution 5,000 unit, 1 mL, Route: SUB-Q, Drug form: INJ, Q8H, Dosing Weight 80.455, kg, Start date: 08/12/18 8:00:00 CDT, Duration: 30 day, Stop date: 09/11/18 0:00:00 CDTNotes: porcine heparin No Longer Active 08/12/2018 [facility] pantoprazole 40 mg, Route: PO, Drug form: ECTAB, BID-Before Meals, Dosing Weight 81.364, kg, Start date: 08/12/18 7:30:00 CDT, Duration: 30 day, Stop date: 09/10/18 16:30:00 CDT No Longer Active 08/12/2018 [facility] Thyroxine Route: IVP, Drug form: INJ, ONCE, Dosing Weight 80.455, kg, Start date: 08/12/18 6:30:00 CDT, Stop date: 08/12/18 6:30:00 CDTNotes: (Same as: Synthroid) Reconstitute with 5ml of NS. Final concentration =20 micrograms/ml. Use immediately after reconstitution and discard remaining solution. Inactive 08/12/2018 [facility] Levothroid 100 microgram, 1 tab, Route: PO, Drug form: TAB, Q630AM, Start date: 08/12/18 6:30:00 CDT, Duration: 30 day, Stop date: 09/10/18 6:30:00 CDT No Longer Active 08/12/2018 [facility] Synthroid 75 microgram, 1 tab, Route: PO, Drug form: TAB, Q630AM, Start date: 08/12/18 6:30:00 CDT, Duration: 30 day, Stop date: 09/10/18 6:30:00 CDT No Longer Active 08/12/2018 [facility] Ceftriaxone 1 gm, Route: IVP, Drug form: PDR/INJ, [id number], Dosing Weight 80.455, kg, Priority: NOW, Start date: 08/12/18 3:12:00 CDT, Duration: 7 day, Stop date: 08/18/18 3:12:00 CDT, ABX Indication: Urinary Tract InfectionNotes: (Same As: Rocephin). Use with 100 mL NS and infuse over 30 min MEDICATION WASTE Product Size: 1000 mg Product Wasted: ___ mg No Longer Active 08/12/2018 [facility] Tylenol 650 mg, 1 supp, Route: AL, Drug form: SUPP, Q6H, Dosing Weight 80.455, kg, PRN For Temp > 100.4 F, Start date: 08/11/18 23:09:00 CDT, Duration: 30 day, Stop date: 09/10/18 23:08:00 CDTNotes: Max zkqpohipfkerk=7719 mg/day (4 gm/day). (Same as: Tylenol) No Longer Active 08/12/2018 [facility] Keppra 500 mg, 1 tab, Route: PO, Drug form: TAB, Q12H, Dosing Weight 81.364, kg, Start date: 08/11/18 21:00:00 CDT, Duration: 30 day, Stop date: 09/10/18 9:00:00 CDTNotes: (Same as:Keppra) No Longer Active 08/12/2018 [facility] Saline Flush 0.9% 10 ml, Route: IVP, Drug Form: INJ, Dosing Weight 81.364, kg, Q12H, Start date: 08/11/18 21:00:00 CDT, Duration: 30 day, Stop date: 09/10/18 9:00:00 CDTNotes: (Same as: BD Posiflush) No Longer Active 08/12/2018 [facility] sennosides, PENITENTIARY 8.6 mg, 1 tab, Route: PO, Drug Form: TAB, Dosing Weight 81.364, kg, Q12H, Start date: 08/11/18 21:00:00 CDT, Duration: 30 day, Stop date: 09/10/18 9:00:00 CDTNotes: (Same as: Senokot) No Longer Active 08/12/2018 [facility] Docusate 100 mg, 10 mL, Route: PO, Drug form: LIQ, Q12H, Dosing Weight 81.364, kg, Start date: 08/11/18 21:00:00 CDT, Duration: 30 day, Stop date: 09/10/18 9:00:00 CDTNotes: (Same as: Colace) No Longer Active 08/12/2018 [facility] Levetiracetam 500 mg, Route: PO, Drug form: TAB, Q12H, Dosing Weight 81.364, kg, Start date: 08/11/18 21:00:00 CDT, Duration: 30 day, Stop date: 09/10/18 9:00:00 CDT Inactive 08/12/2018 [facility] Calcium Gluconate 1 gm, 10 mL, Route: IVPB, Drug form: INJ, PRN, Dosing Weight 80.455, kg, PRN Abnormal Lab Result, Start date: 08/11/18 20:34:00 CDT, Duration: 30 day, Stop date: 09/10/18 20:33:00 CDT, FOR ICU USE ONLYNotes: WASTE: F/P - Sink; E - Municipal Trash Bin No Longer Active 08/12/2018 [facility] Calcium Carbonate 500 MG Chewable Tablet 500 mg, 1 tab, Route: PO, Drug form: CHEWTAB, PRN, Dosing Weight 80.455, kg, PRN Abnormal Lab Result, FOR ICU USE ONLY, Start date: 08/11/18 20:34:00 CDT, Duration: 30 day, Stop date: 09/10/18 20:33:00 CDTNotes: (Same As: Tums) Calcium Carbonate 500 sq=980 mg elemental calcium Dose= mg calcium carbonate ( mg elemental calcium) No Longer Active 08/12/2018 [facility] Magnesium Oxide 800 mg, 2 tab, Route: PO, Drug form: TAB, PRN, Dosing Weight 80.455, kg, PRN Abnormal Lab Result, FOR ICU USE ONLY, Start date: 08/11/18 20:34:00 CDT, Duration: 30 day, Stop date: 09/10/18 20:33:00 C DTNotes: (Same as: Mag-Ox 400) Magnesium oxide [id number] elemental magnesium Dose=____mg magnesium oxide (___mg elemental magnesium) No Longer Active 08/12/2018 [facility] sodium phosphate 30 mmol, 10 mL, Route: IVPB, Drug form: INJ, PRN, Dosing Weight 80.455, kg, PRN Abnormal Lab Result, Start date: 08/11/18 20:34:00 CDT, Duration: 30 day, Stop date: 09/10/18 20:33:00 CDT, FOR ICU USE ONLYNotes: Infuse over 4 hour. Do not infuse phosphorous concurrently in the same line as TPN or IVF that contains calcium. For double lumen central lines, phosphorous may be infused in a separate lumen from TPN. No Longer Active 08/12/2018 [facility] potassium phosphate 30 mmol, 10 mL, Route: IVPB, Drug form: INJ, PRN, Dosing Weight 80.455, kg, PRN Abnormal Lab Result, Start date: 08/11/18 20:34:00 CDT, Duration: 30 day, Stop date: 09/10/18 20:33:00 CDT, FOR ICU USE ONLYNotes: (Same as: K Phosphate.) Do not infuse phosphorous concurrently in the same line as TPN or IVF that contains calcium. For double lumen central lines, phosphorous may be infused in a separate lumen from TPN. 1 mMol phoshate has 1.47 mEq potassium Infuse over 4 hours No Longer Active 08/12/2018 [facility] Potassium Chloride 20 mEq, 100 mL, Route: IVPB, Drug form: INJ, PRN, Dosing Weight 80.455, kg, PRN Abnormal Lab Result, Via central line, Start date: 08/11/18 20:34:00 CDT, Duration: 30 day, Stop date: 09/10/18 20:33:0 0 CDT, FOR ICU USE ONLYNotes: (Same as: KCL) Infuse no faster than 10 mEq/hr if given peripherally. No Longer Active 08/12/2018 [facility] potassium phosphate-sodium phosphate 250 mg-280 mg-160 mg oral powder for reconstitution 2 pkt, Route: PO, Drug Form: PDR/REC, Dosing Weight 80.455, kg, PRN, PRN Abnormal Lab Result, FOR ICU USE ONLY, Start date: 08/11/18 20:34:00 CDT, Duration: 30 day, Stop date: 09/10/18 20:33:00 CDTNotes: (Same as: Phos-NaK) Each 1.5 gm pkt has 250mg phosphorous. Mix w/2.5oz water and stir. No Longer Active 08/12/2018 [facility] Magnesium Sulfate 2 gm, 50 mL, Route: IVPB, Drug form: INJ, PRN, Dosing Weight 80.455, kg, PRN Abnormal Lab Result, Start date: 08/11/18 20:34:00 CDT, Duration: 30 day, Stop date: 09/10/18 20:33:00 CDT, FOR ICU USE ONLYNotes: WASTE: F/P - Sink; E - Municipal Trash Bin No Longer Active 08/12/2018 [facility] Streptococcus pneumoniae serotype 1 capsular antigen diphtheria [id number] protein conjugate vaccine / Streptococcus pneumoniae serotype 14 capsular antigen diphtheria [id number] protein conjugate vaccine / Streptococcus pneumoniae serotype 18C capsular antigen d 0.5 mL, Route: IM, Drug Form: INJ, ONCALL, Start date: 08/11/18 20:32:34 CDT, Stop date: 09/10/18 20:27:34 CDTNotes: Shake well prior to use (Same as: Prevnar 13) No Longer Active 08/12/2018 [facility] Docusate Sodium 100 MG Oral Capsule [Colace] 100 mg=1 cap, PO, BID, 0 Refill(s) No Longer Active 08/12/2018 [facility] Fish Oil 1200 mg oral capsule 1,200 mg=1 cap, PO, Daily, 0 Refill(s) Active 08/12/2018 [facility] calcium-vitamin D 185 mg-1000U 1 tab, PO, Daily, # 100 tab, 0 Refill(s) Active 08/12/2018 [facility] Aspirin 81 MG Chewable Tablet 1/2 tablet, PO, Daily, # 30 tab, 0 Refill(s) No Longer Active 08/12/2018 [facility] Thyroxine 175 mcg, PO, Daily, 0 Refill(s) Active 08/12/2018 [facility] buPROPion 75 mg oral tablet 75 mg=1 tab, PO, Daily, # 270 tab, 0 Refill(s) Active 08/12/2018 [facility] 24 HR rivastigmine 0.192 MG/HR Transdermal Patch =1 patch, TOP, Daily, apply to area that is clean/dry/hairless & free of redness/irritation/[place]/cuts, # 30 patch, 1 Refill(s) Active 08/12/2018 [facility] celecoxib 200 MG Oral Capsule [Celebrex] 200 mg=1 cap, PO, Daily, PRN Pain, # 10 cap, 0 Refill(s) No Longer Active 08/12/2018 [facility] meloxicam 15 mg oral tablet 15 mg=1 tab, PO, Daily, PRN Pain, # 30 tab, 1 Refill(s) No Longer Active 08/12/2018 [facility] Nitroglycerin 0.4 MG Sublingual Tablet 0.4 mg=1 tab, SL, Q5Min, PRN Chest pain, Give up to 3 doses. Call 911 if pain persists., # 100 tab, 0 Refill(s) Active 08/12/2018 [facility] Seroquel 12.5 mg, PO, Bedtime, PRN Sleep, 0 Refill(s) Active 08/12/2018 [facility] Dextrose 50% Syringe 25 gm, 50 mL, Route: IVP, Drug Form: INJ, Dosing Weight 81.364, kg, PRN, PRN Abnormal Lab Result, Start date: 08/11/18 17:20:00 CDT, Duration: 30 day, Stop date: 09/10/18 17:19:00 CDT No Longer Active 08/11/2018 [facility] Regular Insulin, Human 100 UNT/ML Injectable Solution 3 unit, 0.03 mL, Route: SUB-Q, Drug form: SOLN, PRN, Dosing Weight 81.364, kg, PRN Abnormal Lab Result, Start date: 08/11/18 17:20:00 CDT, Duration: 30 day, Stop date: 09/10/18 17:19:00 CDTNotes: (Restricted to patients requiring a dose > 60 units) WASTE: F/P - Black; E - Municipal Trash Bin Stable for 28 days at room temperature Expires in days from Date No Longer Active 08/11/2018 [facility] Saline Flush 0.9% 10 ml, Route: IVP, Drug Form: INJ, Dosing Weight 81.364, kg, PRN, PRN Line Flush, Start date: 08/11/18 17:20:00 CDT, Duration: 30 day, Stop date: 09/10/18 17:19:00 CDTNotes: (Same as: BD Posiflush) No Longer Active 08/11/2018 [facility] Acetaminophen 650 mg, 2 tab, Route: PO, Drug form: TAB, Q4H, Dosing Weight 81.364, kg, PRN Pain 1-3/Temp > 100.4 F, Start date: 08/11/18 17:20:00 CDT, Duration: 30 day, Stop date: 09/10/18 17:19:00 CDT No Longer Active 08/11/2018 [facility] Sodium Chloride 0.9% IV 1,000 mL 1,000 mL, Rate: 75 ml/hr, Infuse over: 13.3 hr, Route: IV, Dosing Weight 81.364 kg, Total Volume: 1,000, Start date: 08/11/18 17:20:00 CDT, Duration: 30 day, Stop date: 09/10/18 17:19:00 CDT, 1.89, m2 No Longer Active 08/11/2018 [facility] Protonix 40 mg, 1 tab, Route: PO, Drug form: ECTAB, Before Dinner, Dosing Weight 81.364, kg, Start date: 08/26/13 16:30:00, Duration: 30 day, Stop date: 09/24/13 16:30:00 PO No Longer Active [facility] 08/26/2013 [facility] metFORmin 500 mg oral tablet, extended release 500 mg, 1 tab, Route: PO, Drug form: ERTAB, BID, Dosing Weight 81.364, kg, Start date: 08/26/13 9:00:00, Duration: 30 day, Stop date: 09/24/13 17:00:00 PO No Longer Active [facility] 08/26/2013 [facility] meloxicam 15 mg, 2 tab, Route: PO, Drug form: TAB, Daily, Dosing Weight 81.364, kg, Start date: 08/26/13 9:00:00, Duration: 30 day, Stop date: 09/24/13 9:00:00 PO No Longer Active [facility] 08/26/2013 [facility] lisinopril 20 mg, 1 tab, Route: PO, Drug form: TAB, Daily, Dosing Weight 81.364, kg, Start date: 08/26/13 9:00:00, Duration: 30 day, Stop date: 09/24/13 9:00:00 PO No Longer Active [facility] 08/26/2013 [facility] hydrochlorothiazide 25 mg, 1 tab, Route: PO, Drug form: TAB, Daily, Dosing Weight 81.364, kg, Start date: 08/26/13 9:00:00, Duration: 30 day, Stop date: 09/24/13 9:00:00 PO No Longer Active [facility] 08/26/2013 [facility] glimepiride 2 mg, 1 tab, Route: PO, Drug form: TAB, Daily, Dosing Weight 81.364, kg, Start date: 08/26/13 9:00:00, Duration: 30 day, Stop date: 09/24/13 9:00:00 PO No Longer Active [facility] 08/26/2013 [facility] gabapentin 100 mg, 1 cap, Route: PO, Drug form: CAP, TID, Dosing Weight 81.364, kg, Start date: 08/26/13 9:00:00, Duration: 30 day, Stop date: 09/24/13 17:00:00 PO No Longer Active [facility] 08/26/2013 [facility] Cymbalta 30 mg, 1 cap, Route: PO, Drug form: DRC, Daily, Dosing Weight 81.364, kg, Start date: 08/26/13 9:00:00, Duration: 30 day, Stop date: 09/24/13 9:00:00 PO No Longer Active [facility] 08/26/2013 [facility] amLODipine 5 mg, 1 tab, Route: PO, Drug form: TAB, Daily, Dosing Weight 81.364, kg, Start date: 08/26/13 9:00:00, Duration: 30 day, Stop date: 09/24/13 9:00:00 PO No Longer Active [facility] 08/26/2013 [facility] atorvastatin 20 mg, 1 tab, Route: PO, Drug form: TAB, Daily, Dosing Weight 81.364, kg, Start date: 08/26/13 9:00:00, Duration: 30 day, Stop date: 09/24/13 9:00:00 PO No Longer Active [facility] 08/26/2013 [facility] aspirin 325 mg tablet, enteric coated 325 mg, 1 tab, Route: PO, Drug form: ECTAB, Daily, Dosing Weight 81.364, kg, Start date: 08/26/13 9:00:00, Duration: 30 day, Stop date: 09/24/13 9:00:00 PO No Longer Active [facility] 08/26/2013 [facility] Januvia 100 mg, 1 tab, Route: PO, Drug form: TAB, Daily, Dosing Weight 81.364, kg, Start date: 08/26/13 9:00:00, Duration: 30 day, Stop date: 09/24/13 9:00:00 PO No Longer Active [facility] 08/26/2013 [facility] levothyroxine 200 mcg (0.2 mg) oral tablet 200 microgram, 1 tab, PO, Daily, 30 tab, Substitution Allowed, TAB PO Active [facility] 08/26/2013 [facility] oxybutynin 15 mg, 3 tab, Route: PO, Drug form: ERTAB, Bedtime, Dosing Weight 81.364, kg, Start date: 08/25/13 21:00:00, Duration: 30 day, Stop date: 09/23/13 21:00:00 PO No Longer Active [facility] 08/26/2013 [facility] insulin glargine 40 unit, 0.4 mL, Route: SUB-Q, Drug form: INJ, Bedtime, Dosing Weight 81.364, kg, Start date: 08/25/13 21:00:00, Duration: 30 day, Stop date: 09/23/13 21:00:00 SUB-Q No Longer Active [facility] 08/26/2013 [facility] Saline Flush 0.9% 5 ml, Route: IVP, Drug Form: INJ, Dosing Weight 81.364, kg, Q12H, Start date: 08/25/13 21:00:00, Duration: 30 day, Stop date: 09/24/13 9:00:00 IVP No Longer Active [facility] 08/26/2013 [facility] [place] 5/325 oral tablet 1 tab, PO, Q4-6H, PRN, 30 tab, as needed for pain, Substitution Allowed, Maintenance PO Active [facility] 08/25/2013 [facility] enoxaparin 40 mg, 0.4 mL, Route: SUB-Q, Drug form: INJ, [id number], Dosing Weight 81.364, kg, Start date: 08/25/13 18:00:00, Duration: 30 day, Stop date: 09/23/13 18:00:00 SUB-Q No Longer Active [facility] 08/25/2013 [facility] atorvastatin 20 mg oral tablet 20 mg, 1 tab, PO, Daily, 30 tab, Substitution Allowed, TAB PO Active [facility] 08/25/2013 [facility] Januvia 100 mg oral tablet 100 mg, 1 tab, PO, Daily, 30 tab, Substitution Allowed, TAB PO Active [facility] 08/25/2013 [facility] meloxicam 15 mg oral tablet 15 mg, 1 tab, PO, Daily, 30 tab, Substitution Allowed, TAB PO Active [facility] 08/25/2013 [facility] glimepiride 2 mg oral tablet 2 mg, 1 tab, PO, Daily, Substitution Allowed, TAB PO Active [facility] 08/25/2013 [facility] oxybutynin 15 mg oral tablet, extended release 15 mg, 1 tab, PO, Bedtime, 30 tab, Substitution Allowed, ERTAB PO Active [facility]08/25/2013 [facility] Cymbalta 30 mg, PO, Daily, Substitution Allowed, TAB PO Active 08/25/2013 [facility] metFORmin 500 mg oral tablet, extended release 500 mg, 1 tab, PO, BID, 30 tab, Substitution Allowed PO Active [facility]08/25/2013 [facility] Saline Flush 0.9% 5 ml, Route: IVP, Drug Form: INJ, Dosing Weight 81.364, kg, PRN, PRN Line Flush, Start date: 08/25/13 14:23:00, Duration: 30 day, Stop date: 09/24/13 14:22:00 IVP No Longer Active 08/25/2013 [facility] temazepam 15 mg, 1 cap, Route: PO, Drug form: CAP, Bedtime, Dosing Weight 81.364, kg, PRN Insomnia, Start date: 08/25/13 14:23:00, Duration: 30 day, Stop date: 09/24/13 14:22:00 PO No Longer Active [facility] 08/25/2013 [facility] ondansetron 4 mg, 1 tab, Route: PO, Drug form: TAB, Q8H, Dosing Weight 81.364, kg, PRN Nausea & Vomiting, Start date: 08/25/13 14:23:00, Duration: 30 day, Stop date: 09/24/13 14:22:00 PO No Longer Active [facility] 08/25/2013 [facility] acetaminophen 650 mg, 2 tab, Route: PO, Drug form: TAB, Q4H, Dosing Weight 81.364, kg, PRN Headache 1-5, Start date: 08/25/13 14:23:00, Duration: 30 day, Stop date: 09/24/13 14:22:00 PO No Longer Active [facility] 08/25/2013 [facility] morphine Sulfate 2 mg, 1 mL, Route: IVP, Drug form: INJ, Q15Min, Dosing Weight 81.364, kg, PRN Chest Pain, Start date: 08/25/13 14:23:00, Duration: 2 doses or times, Stop date: Limited # of times IVP No Longer Active [facility] 08/25/2013 [facility] nitroglycerin SL Tab 0.4 mg, 1 tab, Route: SL, Drug form: TAB, Q5Min, Dosing Weight 81.364, kg, PRN Chest Pain, Start date: 08/25/13 14:23:00, Duration: 3 doses or times, Stop date: Limited # of times SL No Longer Active [facility] 08/25/2013 [facility] ketorolac 30 mg, Route: IV, Drug form: INJ, ONCE, Dosing Weight 81.364, kg, Start date: 08/25/13 13:45:00, Stop date: 08/25/13 13:45:00 IV No Longer Active [facility] 08/25/2013 [facility] Zofran 4 mg, Route: IVP, ONCE, Dosing Weight 81.364, kg, Priority: STAT, Start date: 08/25/13 11:38:00, Stop date: 08/25/13 11:38:00 IVP No Longer Active [facility] 08/25/2013 [facility] morphine Sulfate 4 mg, Route: IVP, Drug form: INJ, ONCE, Dosing Weight 81.364, kg, Priority: STAT, Start date: 08/25/13 11:38:00, Stop date: 08/25/13 11:38:00 IVP No Longer Active [facility] 08/25/2013 [facility] aspirin 325 mg, Route: PO, Drug form: TAB, ONCE, Dosing Weight 81.364, kg, Priority: STAT, Start date: 08/25/13 11:38:00, Stop date: 08/25/13 11:38:00 PO No Longer Active [facility] 08/25/2013 [facility] Saline Flush 0.9% 5 mL, Route: IVP, Drug Form: INJ, Dosing Weight 81.364, kg, Q8H, PRN Line Flush, Start date: 08/25/13 11:32:00, Duration: 30 day, Stop date: 09/24/13 11:31:00, Administer at least once every 8 hoursAdminister at least once every 8 hours IVP No Longer Active [facility] 08/25/2013 [facility] bacitracin topical 500 units/g ointment 1 appl, TOP, QID, 30 gm, Substitution Allowed, OINT TOP Active [facility] 07/12/2012 [facility] Pepcid 20 mg oral tablet 20 mg, 1 tab, PO, BID, 20 tab, Substitution Allowed PO Active [facility] 07/12/2012 [facility] naproxen 250 mg oral tablet 250 mg, 1 tab, PO, BID, PRN, 20 tab, Pain, Substitution Allowed, TAB PO Active [facility] 07/12/2012 [facility] ketorolac 15 mg, 0.5 mL, Route: IM, Drug form: INJ, ONCE, Priority: STAT, Start date: 07/12/12 8:21:00, Stop date: 07/12/12 8:21:00 IM No Longer Active [facility] 07/12/2012 [facility] lidocaine 1% 1 ml, Route: SUB-Q, Drug Form: INJ, ONCE, STAT, Start date: 07/12/12 8:20:00, Stop date: 07/12/12 8:20:00 SUB-Q Active [facility] 07/12/2012 [facility] morphine Sulfate 4 mg, Route: IM, ONCE, Priority: STAT, Start date: 07/12/12 7:18:00, Stop date: 07/12/12 7:18:00 IM No Longer Active [facility] 07/12/2012 [facility] ondansetron 4 mg, Route: IM, ONCE, Priority: STAT, Start date: 07/12/12 7:18:00, Stop date: 07/12/12 7:18:00 IM No Longer Active [facility] 07/12/2012 [facility] tetanus-diphtheria toxoids 0.5 ml, Route: IM, ONCE, Start date: 07/12/12 7:18:00, Stop date: 07/12/12 7:18:00 IM No Longer Active [facility] 07/12/2012 [facility] glimepiride 2 mg, 1 tab, Route: PO, Drug form: TAB, BID, Start date: 05/17/12 9:00:00, Duration: 30 day, Stop date: 06/15/12 17:00:00 PO No Longer Active [facility] 05/17/2012 [facility] enoxaparin 30 mg/0.3 mL subcutaneous solution 30 mg, 0.3 mL, SUB-Q, [id number], 14 mL, Substitution Allowed, Give first dose 12 hours after surgery, SOLNGive first dose 12 hours after surgery SUB-Q Active [facility] 05/16/2012 [facility] glimepiride 2 mg oral tablet 2 mg, 1 tab, PO, BID, 60 tab, Substitution Allowed, TAB PO Active [facility] 05/16/2012 [facility] Bactroban 1 appl, Route: TOP, Daily, Drug form: OINT, Start date: 05/16/12 11:15:00, Duration: 30 day, Stop date: 06/15/12 9:00:00 TOP No Longer Active [facility] 05/16/2012 [facility] Milk of Magnesia 30 ml, Route: PO, Drug Form: SUSP, PRN, PRN Constipation, Start date: 05/14/12 18:13:00, Duration: 30 day, Stop date: 06/13/12 18:12:00 PO No Longer Active [facility] 05/14/2012 [facility] Tylenol 650 mg, 2 tab, Route: PO, Drug form: TAB, Q4H, PRN Pain Score 1-5, Start date: 05/14/12 18:11:00, Duration: 30 day, Stop date: 06/13/12 18:10:00 PO No Longer Active [facility] 05/14/2012 [facility] Tylenol 650 mg, Route: PO, Drug form: TAB, Q6H, PRN Fever, Start date: 05/14/12 18:10:00, Duration: 30 day, Stop date: 06/13/12 18:09:00 PO No Longer Active [facility] 05/14/2012 [facility] diphenhydrAMINE 25 mg, 1 cap, Route: PO, Drug form: CAP, ONCALL, Premed Blood Products, Priority: Routine, Start date: 05/13/12 20:00:00, Duration: 30 day, Stop date: 06/12/12 19:59:00 PO No Longer Active [facility] 05/14/2012 [facility] acetaminophen 650 mg, 2 tab, Route: PO, Drug form: TAB, ONCALL, Premed Blood Products. Not to exceed 4grams/24hrs., Priority: Routine, Start date: 05/13/12 20:00:00, Duration: 30 day, Stop date: 06/12/12 19:59:00 PO No Longer Active [facility] 05/14/2012 [facility] furosemide 20 mg, 2 mL, Route: IVP, Drug form: INJ, ONCALL, Administer after first unit of Blood., Priority: Routine, Start date: 05/13/12 20:00:00, Duration: 30 day, Stop date: 06/12/12 19:59:00 IVP No Longer Active [facility] 05/14/2012 [facility] paroxetine 10 mg, 1 tab, Route: PO, Drug form: TAB, Daily, Start date: 05/13/12 9:00:00, Duration: 30 day, Stop date: 06/11/12 9:00:00 PO No Longer Active [facility] 05/13/2012 [facility] Protonix 40 mg, 1 tab, Route: PO, Drug form: ECTAB, Daily, Start date: 05/13/12 9:00:00, Duration: 30 day, Stop date: 06/11/12 9:00:00 PO No Longer Active [facility] 05/13/2012 [facility] lisinopril 20 mg, 1 tab, Route: PO, Drug form: TAB, Daily, Start date: 05/13/12 9:00:00, Duration: 30 day, Stop date: 06/11/12 9:00:00 PO No Longer Active [facility] 05/13/2012 [facility] metFORmin 1,000 mg, 2 tab, Route: PO, Drug form: TAB, BID, Start date: 05/13/12 9:00:00, Duration: 30 day, Stop date: 06/11/12 17:00:00 PO No Longer Active [facility] 05/13/2012 [facility] levothyroxine 200 microgram, Route: PO, Drug form: TAB, Daily, Start date: 05/13/12 9:00:00, Duration: 30 day, Stop date: 06/11/12 9:00:00 PO No Longer Active [facility] 05/13/2012 [facility] hydrochlorothiazide 25 mg, 1 tab, Route: PO, Drug form: TAB, Daily, Start date: 05/13/12 9:00:00, Duration: 30 day, Stop date: 06/11/12 9:00:00 PO No Longer Active [facility] 05/13/2012 [facility] glimepiride 4 mg, 2 tab, Route: PO, Drug form: TAB, BID, Start date: 05/13/12 9:00:00, Duration: 30 day, Stop date: 06/11/12 17:00:00 PO No Longer Active [facility] 05/13/2012 [facility] gabapentin 100 mg, 1 cap, Route: PO, Drug form: CAP, TID, Start date: 05/13/12 9:00:00, Duration: 30 day, Stop date: 06/11/12 17:00:00 PO No Longer Active [facility] 05/13/2012 [facility] Celebrex 200 mg, 1 cap, Route: PO, Drug form: CAP, Daily, Start date: 05/13/12 9:00:00, Duration: 30 day, Stop date: 06/11/12 9:00:00 PO No Longer Active [facility] 05/13/2012 [facility] amLODipine 5 mg, 1 tab, Route: PO, Drug form: TAB, Daily, Start date: 05/13/12 9:00:00, Duration: 30 day, Stop date: 06/11/12 9:00:00 PO No Longer Active [facility] 05/13/2012 [facility] cefazolin (SCIP) 2 gm, 100 mL, Route: IVPB, Drug form: INJ, Q8H, Start date: 05/13/12 0:00:00, Duration: 3 doses or times, Stop date: 05/13/12 16:00:00 IVPB No Longer Active [facility] 05/13/2012 [facility] Dextrose 50% in Water IV 25 mL, Route: IVP, Start date: 05/12/12 22:36:00, Duration: 30 day, Stop date: 06/11/12 22:35:00, PRN Blood Glucose Results IVP No Longer Active [facility] 05/13/2012 [facility] NovoLog FlexPen 5 unit, 0.05 mL, Route: SUB-Q, Drug form: SOLN, Sliding Scale, PRN Blood Glucose Results, Start date: 05/12/12 22:35:00, Duration: 30 day, Stop date: 06/11/12 22:34:00 SUB-Q No Longer Active [facility] 05/13/2012 [facility] simvastatin 40 mg, 1 tab, Route: PO, Drug form: TAB, Bedtime, Start date: 05/12/12 21:00:00, Duration: 30 day, Stop date: 06/10/12 21:00:00 PO No Longer Active [facility] 05/13/2012 [facility] insulin glargine Route: SUB-Q, Drug form: INJ, Bedtime, Start date: 05/12/12 21:00:00, Duration: 30 day, Stop date: 06/10/12 21:00:00 SUB-Q No Longer Active [facility] 05/13/2012 [facility] Al hydroxide/Mg hydroxide/simethicone 30 mL, Route: PO, Drug Form: SUSP, Q4H, PRN Indigestion, Start date: 05/12/12 19:40:00, Duration: 30 day, Stop date: 06/11/12 19:39:00 PO No Longer Active [facility] 05/13/2012 [facility] ketorolac 30 mg, 1 mL, Route: IM, Drug form: INJ, Q6H, Start date: 05/12/12 18:00:00, Duration: 1 day, Stop date: 05/13/12 12:00:00 IM No Longer Active [facility] 05/12/2012 [facility] enoxaparin 30 mg, 0.3 mL, Route: SUB-Q, Drug form: INJ, [id number], Start date: 05/12/12 18:00:00, Duration: 30 day, Stop date: 06/11/12 6:00:00, Give first dose 12 hours after surgeryGive first dose 12 hours after surgery SUB-Q No Longer Active [facility] 05/12/2012 [facility] naloxone 0.04 mg, 0.1 mL, Route: IVP, Drug form: INJ, Q2MIN, PRN Narcotic Reversal, Start date: 05/12/12 17:08:00, Duration: 30 day, Stop date: 06/11/12 17:07:00 IVP No Longer Active [facility] 05/12/2012 [facility] hydromorphone 0.2 mg/mL ROOF TILER (6 mg/30 mL) INJ Syringe 6 mg 6 mg, 30 mL, Route: IV, Initial Loading Dose: 0.4mg, ROOF TILER Dose: 0.2 mg, ROOF TILER Lockout: 10 minutes, Continuous Basal Rate: 0 mg, 4 Hour Limit (In MG): 6, Drug Form: INJ, Continuous, Pain, Start date: 05/12/12 17:08:00, Duration: 30 day, Stop date: ... IV No Longer Active [facility] 05/12/2012 [facility] diphenhydrAMINE 12.5 mg, 0.25 mL, Route: IVP, Drug form: INJ, Q6H, PRN Itching, Start date: 05/12/12 17:08:00, Duration: 30 day, Stop date: 06/11/12 17:07:00 IVP No Longer Active [facility] 05/12/2012 [facility] promethazine 12.5 mg, 0.5 mL, Route: IVPB, ONCE, PRN Nausea & Vomiting, Start date: 05/12/12 17:08:00 IVPB No Longer Active [facility] 05/12/2012 [facility] nalbuphine 2 mg, 0.2 mL, Route: IVP, Drug form: INJ, Q2H, PRN Itching, Start date: 05/12/12 17:08:00, Duration: 5 doses or times, Stop date: Limited # of times IVP No Longer Active [facility] 05/12/2012 [facility] ondansetron 4 mg, 2 mL, Route: IVP, Drug form: INJ, ONCE, PRN Nausea & Vomiting, Start date: 05/12/12 17:08:00 IVP No Longer Active [facility] 05/12/2012 [facility] Saline Flush 0.9% 5 ml, Route: IVP, Drug Form: INJ, PRN, PRN Line Flush, Start date: 05/12/12 17:08:00, Duration: 30 day, Stop date: 06/11/12 17:07:00 IVP No Longer Active [facility] 05/12/2012 [facility] Sodium Chloride 0.9% IV 1,000 mL 1,000 mL, Rate: 75 ml/hr, Infuse over: 13.3 hr, Route: IV, Dosing Weight 85.455 kg, Total Volume: 1,000, Start date: 05/12/12 17:08:00, Stop date: 06/11/12 17:07:00 IV No Longer Active [facility] 05/12/2012 [facility] acetaminophen-oxycodone 325 mg-5 mg oral tablet 1 tab, Route: PO, Drug Form: TAB, Q4H, PRN Pain Score 1-3, Start date: 05/12/12 17:08:00, Duration: 30 day, Stop date: 06/11/12 17:07:00 PO No Longer Active [place] 05/12/2012 [facility] aluminum hydroxide-magnesium hydroxide 225 mg-200 mg/5 mL oral suspension 30 ml, Route: PO, Q4H, PRN Indigestion, Start date: 05/12/12 17:08:00, Duration: 30 day, Stop date: 06/11/12 17:07:00 PO No Longer Active [facility] 05/12/2012 [facility] temazepam 15 mg, 1 cap, Route: PO, Drug form: CAP, Bedtime, PRN Insomnia, Start date: 05/12/12 17:08:00, Duration: 30 day, Stop date: 06/11/12 17:07:00 PO No Longer Active [facility] 05/12/2012 [facility] lidocaine 1% 0.2 mL, Route: INTRADERM, Drug Form: INJ, ONCALL, Start date: 05/12/12 14:00:00, Duration: 1 doses or times INTRADERM No Longer Active [facility] 05/12/2012 [facility] ondansetron 4 mg, 2 mL, Route: IVP, Drug form: INJ, ONCE, PRN Nausea & Vomiting, Start date: 05/12/12 13:47:00 IVP No Longer Active [facility] 05/12/2012 [facility] hydromorphone 0.5 mg, 0.25 mL, Route: IVP, Drug form: INJ, Q5Min, PRN Pain Score 4-6, Start date: 05/12/12 13:47:00, Duration: 5 doses or times, Stop date: Limited # of times IVP No Longer Active [facility] 05/12/2012 [facility] flumazenil 0.2 mg, 2 mL, Route: IVP, Drug form: INJ, PRN, PRN Benzodiazepine Reversal, Initial dose, Start date: 05/12/12 13:47:00, Duration: 30 day, Stop date: 06/11/12 13:46:00 IVP No Longer Active [facility] 05/12/2012 [facility] naloxone 0.04 mg, 0.1 mL, Route: IVP, Drug form: INJ, Q2MIN, PRN Narcotic Reversal, Start date: 05/12/12 13:47:00, Duration: 8 doses or times, Stop date: Limited # of times IVP No Longer Active [facility] 05/12/2012 [facility] morphine Sulfate 2 mg, 1 mL, Route: IVP, Drug form: INJ, Q5Min, PRN Pain Score 4-6, Start date: 05/12/12 13:47:00, Duration: 8 doses or times, Stop date: Limited # of times IVP No Longer Active [facility] 05/12/2012 [facility] Sodium Chloride 0.9% IV 1,000 mL 1,000 mL, Rate: 50 ml/hr, Infuse over: 20 hr, Route: IV, Dosing Weight 85.455 kg, Total Volume: 1,000, Start date: 05/12/12 13:47:00, Duration: 30 day, Stop date: 06/11/12 13:46:00 IV No Longer Active [facility] 05/12/2012 [facility] Lactated Ringers Injection IV 1,000 mL 1,000 mL, Rate: 25 ml/hr, Infuse over: 40 hr, Route: IV, Dosing Weight 85.455 kg, Total Volume: 1,000, Start date: 05/12/12 13:47:00, Duration: 30 day, Stop date: 06/11/12 13:46:00 IV No Longer Active [facility] 05/12/2012 [facility] morphine Sulfate 4 mg, 1 mL, Route: IVP, Drug form: INJ, Q4H, PRN Pain, q5mins times 3 doses in pacu only, Start date: 05/12/12 13:46:00, Duration: 30 day, Stop date: 06/11/12 13:45:00 IVP No Longer Active [facility] 05/12/2012 [facility] ondansetron 4 mg, 2 mL, Route: IVP, Drug form: INJ, ONCE, PRN Nausea & Vomiting, Start date: 05/12/12 13:46:00, Duration: 1 doses or times, Stop date: Limited # of times IVP No Longer Active [facility] 05/12/2012 [facility] acetaminophen-oxycodone 325 mg-5 mg oral tablet 2 tab, Route: PO, Drug Form: TAB, Q4H, PRN Pain Score 7-10, Start date: 05/12/12 13:46:00, Duration: 30 day, Stop date: 06/11/12 13:45:00 PO No Longer Active [facility] 05/12/2012 [facility] naloxone 0.04 mg, 0.1 mL, Route: IVP, Drug form: INJ, Q2MIN, PRN Narcotic Reversal, Start date: 05/12/12 13:46:00, Duration: 30 day, Stop date: 06/11/12 13:45:00 IVP No Longer Active [facility] 05/12/2012 [facility] ropivacaine 0.2% in NS - site 1 800 mg Dosing: Per Nerve Block Dosing Order, Route: NERVE BLOCK, Start date: 05/12/12 13:46:00 400 mL, Drug Form: INJ, Duration: 30 day, Stop date: 06/11/12 13:45:00, 800 mg NERVE BLOCK No Longer Active [facility] 05/12/2012 [facility] 1/2NS 1,000 mL 1,000 mL, Rate: 40 ml/hr, Infuse over: 25 hr, Route: IV, Dosing Weight 85.455 kg, Total Volume: 1,000, Start date: 05/12/12 12:19:00, Duration: 30 day, Stop date: 06/11/12 12:18:00 IV No Longer Active [place] 05/12/2012 [facility] cefazolin 2 gm, 100 mL, Route: IVPB, Drug form: INJ, ONCALL, Start date: 05/12/12 6:00:00, Duration: 1 day, Stop date: 05/13/12 5:59:00 IVPB No Longer Active [facility] 05/12/2012 [facility] Lantus Solostar Pen 100 units/mL subcutaneous solution 14 units, SUB-Q, Bedtime, Substitution Allowed SUB-Q Active [facility] 05/08/2012 [facility] tramadol 50 mg oral tablet 50 mg, PO, Q4-6H, PRN, 20 tab, Pain, Substitution Allowed PO Active [facility] 08/04/2011 [facility] pneumococcal 23-valent vaccine 0.5 ml, Route: IM, Drug Form: INJ, ONCALL, Start date: 07/04/11 18:10:51, Duration: 1 doses or times IM No Longer Active [facility] 07/04/2011 [facility] Allergies, Adverse Reactions, Alerts Substance Category Reaction Severity Reaction type Status Date Reported Comments Source NKFA Assertion [facility] Assertion Drug allergy Active [facility] [place] [place] [facility] Immunizations Immunization Date Given Site Status Last Updated Comments Source tetanus-diphtheria toxoids 07/12/2012 Left gluteus medius completed [facility] [place] [place] [facility], VASHTI Olmos, VASHTI Acharya tetanus-diphtheria toxoids 07/12/2012 completed [facility] pneumococcal 23-valent vaccine 07/06/2011 completed [place] [facility] pneumococcal 23-valent vaccine 07/06/2011 Left deltoid completed Annemarie [facility], VASHTI Olmos, VASHTI Acharya Results Order Name Results Value Reference Range Date Interpretation Comments Source CARDIAC ENZYMES Troponin-I <0.02 0.00 - 0.40 08/15/2018 [facility] CHEM PANEL Phosphorus 2.9 2.5 - 4.5 08/15/2018 [facility] CHEM PANEL Calcium Lvl 8.2 8.5 - 10.5 08/15/2018 [facility] CHEM PANEL Magnesium Lvl 2.1 1.8 - 2.4 08/15/2018 [facility] CHEM PANEL eGFR 95 08/15/2018 Result Comment: The eGFR is calculated using the CKD-EPI formula. In most young, healthy individuals the eGFR will be >90 mL/min/1.73m2. The eGFR declines with age. An eGFR of 60-89 may be normal in some populations, particularly the elderly, for whom the CKD-EPI formula has not been extensively validated. Use of the eGFR is not recommended in the following populations:

Individuals with unstable creatinine concentrations, including patients and those with serious co-morbid conditions.

Patients with extremes in muscle mass or diet.

The data above are obtained from the National Kidney Disease Education Program (NKDEP) which additionally recommends that when the eGFR is used in patients with extremes of body mass index for purposes of drug dosing, the eGFR should be multiplied by the estimated BMI. [facility] CHEM PANEL Chloride Lvl 106 95 - 109 08/15/2018 [facility] CHEM PANEL Potassium Lvl 3.6 3.5 - 5.1 08/15/2018 [facility] CHEM PANEL CO2 20 24 - 32 08/15/2018 [facility] CHEM PANEL Calcium Lvl 7.9 8.5 - 10.5 08/15/2018 [facility] CHEM PANEL Sodium Lvl 138 135 - 145 08/15/2018 [facility] CHEM PANEL BUN 11 7 - 22 08/15/2018 [facility] CHEM PANEL Creatinine Lvl 0.48 0.50 - 1.40 08/15/2018 [facility] CHEM PANEL Glucose Lvl 136 70 - 99 08/15/2018 [facility] CHEM PANEL AGAP 15.6 10.0 - 20.0 08/15/2018 [facility] HEMATOLOGY Lymphocytes # 1.5 1.0 - 5.5 08/15/2018 [facility] HEMATOLOGY Neutrophils # 5.6 1.5 - 8.1 08/15/2018 [facility] HEMATOLOGY Eosinophils # 0.1 0.0 - 0.5 08/15/2018 [facility] HEMATOLOGY Monocytes # 0.6 0.0 - 0.8 08/15/2018 [facility] HEMATOLOGY Eosinophils 1.8 0.0 - 4.0 08/15/2018 [facility] HEMATOLOGY Monocytes 7.4 2.0 - 12.0 08/15/2018 [facility] HEMATOLOGY Basophils 0.6 0.0 - 1.0 08/15/2018 [facility] HEMATOLOGY Segs 70.6 45.0 - 75.0 08/15/2018 [facility] HEMATOLOGY Lymphocytes 19.6 20.0 - 40.0 08/15/2018 [facility] HEMATOLOGY RBC 3.56 4.20 - 5.40 08/15/2018 [facility] HEMATOLOGY Hgb 10.9 12.0 - 16.0 08/15/2018 [facility] HEMATOLOGY WBC 7.9 3.7 - 10.4 08/15/2018 [facility] HEMATOLOGY MPV 8.0 7.4 - 10.4 08/15/2018 [facility] HEMATOLOGY Platelet 271 133 - 450 08/15/2018 [facility] HEMATOLOGY Hct 32.1 36.0 - 48.0 08/15/2018 [facility] HEMATOLOGY MCHC 33.9 32.0 - 36.0 08/15/2018 [facility] HEMATOLOGY RDW 14.1 11.5 - 14.5 08/15/2018 [facility] HEMATOLOGY MCH 30.6 27.0 - 31.0 08/15/2018 [facility] HEMATOLOGY MCV 90.2 80.0 - 98.0 08/15/2018 [facility] CARDIAC ENZYMES Troponin-I <0.02 0.00 - 0.40 08/14/2018 [facility] CHEM PANEL Phosphorus 2.5 2.5 - 4.5 08/14/2018 [facility] CHEM PANEL Magnesium Lvl 2.2 1.8 - 2.4 08/14/2018 [facility] CHEM PANEL eGFR 90 08/14/2018 Result Comment: The eGFR is calculated using the CKD-EPI formula. In most young, healthy individuals the eGFR will be >90 mL/min/1.73m2. The eGFR declines with age. An eGFR of 60-89 may be normal in some populations, particularly the elderly, for whom the CKD-EPI formula has not been extensively validated. Use of the eGFR is not recommended in the following populations:

Individuals with unstable creatinine concentrations, including patients and those with serious co-morbid conditions.

Patients with extremes in muscle mass or diet.

The data above are obtained from the National Kidney Disease Education Program (NKDEP) which additionally recommends that when the eGFR is used in patients with extremes of body mass index for purposes of drug dosing, the eGFR should be multiplied by the estimated BMI. [facility] CHEM PANEL Glucose Lvl 137 70 - 99 08/14/2018 [facility] CHEM PANEL Sodium Lvl 140 135 - 145 08/14/2018 [facility] CHEM PANEL Potassium Lvl 3.8 3.5 - 5.1 08/14/2018 [facility] CHEM PANEL Chloride Lvl 108 95 - 109 08/14/2018 [facility] CHEM PANEL BUN 19 7 - 22 08/14/2018 [facility] CHEM PANEL Creatinine Lvl 0.58 0.50 - 1.40 08/14/2018 [facility] CHEM PANEL CO2 20 24 - 32 08/14/2018 [facility] CHEM PANEL Calcium Lvl 8.2 8.5 - 10.5 08/14/2018 [facility] CHEM PANEL AGAP 15.8 10.0 - 20.0 08/14/2018 [facility] HEMATOLOGY MPV 8.1 7.4 - 10.4 08/14/2018 [facility] HEMATOLOGY Platelet 234 133 - 450 08/14/2018 [facility] HEMATOLOGY MCHC 33.1 32.0 - 36.0 08/14/2018 [facility] HEMATOLOGY RDW 14.7 11.5 - 14.5 08/14/2018 [facility] HEMATOLOGY MCH 30.2 27.0 - 31.0 08/14/2018 [facility] HEMATOLOGY MCV 91.3 80.0 - 98.0 08/14/2018 [facility] HEMATOLOGY WBC 9.2 3.7 - 10.4 08/14/2018 [facility] HEMATOLOGY RBC 3.52 4.20 - 5.40 08/14/2018 [facility] HEMATOLOGY Hct 32.2 36.0 - 48.0 08/14/2018 [facility] HEMATOLOGY Hgb 10.6 12.0 - 16.0 08/14/2018 [facility] HEMATOLOGY Basophils # 0.1 0.0 - 0.2 08/14/2018 [facility] HEMATOLOGY Monocytes # 0.7 0.0 - 0.8 08/14/2018 [facility] HEMATOLOGY Lymphocytes # 2.1 1.0 - 5.5 08/14/2018 [facility] HEMATOLOGY Eosinophils # 0.2 0.0 - 0.5 08/14/2018 [facility] HEMATOLOGY Basophils 0.6 0.0 - 1.0 08/14/2018 [facility] HEMATOLOGY Neutrophils # 6.2 1.5 - 8.1 08/14/2018 [facility] HEMATOLOGY Monocytes 7.3 2.0 - 12.0 08/14/2018 [facility] HEMATOLOGY Eosinophils 1.9 0.0 - 4.0 08/14/2018 [facility] HEMATOLOGY Segs 67.2 45.0 - 75.0 08/14/2018 [facility] HEMATOLOGY Lymphocytes 23.0 20.0 - 40.0 08/14/2018 [facility] PARATHYROID PROFILE Ca Norm WB 1.02 1.05 - 1.25 08/14/2018 [facility] PARATHYROID PROFILE Ca Ion WB 1.02 1.05 - 1.25 08/14/2018 [facility] SPECIAL CHEMISTRY Hgb A1C 7.9 <=5.6 % 08/14/2018 [facility] CARDIAC ENZYMES Troponin-I <0.02 0.00 - 0.40 08/13/2018 [facility] CHEM PANEL Phosphorus 2.1 2.5 - 4.5 08/13/2018 [facility] CHEM PANEL eGFR 89 08/13/2018 Result Comment: The eGFR is calculated using the CKD-EPI formula. In most young, healthy individuals the eGFR will be >90 mL/min/1.73m2. The eGFR declines with age. An eGFR of 60-89 may be normal in some populations, particularly the elderly, for whom the CKD-EPI formula has not been extensively validated. Use of the eGFR is not recommended in the following populations:

Individuals with unstable creatinine concentrations, including patients and those with serious co-morbid conditions.

Patients with extremes in muscle mass or diet.

The data above are obtained from the National Kidney Disease Education Program (NKDEP) which additionally recommends that when the eGFR is used in patients with extremes of body mass index for purposes of drug dosing, the eGFR should be multiplied by the estimated BMI. [facility] CHEM PANEL BUN 16 7 - 22 08/13/2018 [facility] CHEM PANEL Glucose Lvl 235 70 - 99 08/13/2018 [facility] CHEM PANEL Creatinine Lvl 0.59 0.50 - 1.40 08/13/2018 [facility] CHEM PANEL AGAP 16.4 10.0 - 20.0 08/13/2018 [facility] CHEM PANEL CO2 22 24 - 32 08/13/2018 [facility] CHEM PANEL Chloride Lvl 108 95 - 109 08/13/2018 [facility] CHEM PANEL Potassium Lvl 3.4 3.5 - 5.1 08/13/2018 [facility] CHEM PANEL Sodium Lvl 143 135 - 145 08/13/2018 [facility] CHEM PANEL Magnesium Lvl 2.0 1.8 - 2.4 08/13/2018 [facility] HEMATOLOGY Monocytes # 0.8 0.0 - 0.8 08/13/2018 [facility] HEMATOLOGY Eosinophils 0.1 0.0 - 4.0 08/13/2018 [facility] HEMATOLOGY Basophils 0.4 0.0 - 1.0 08/13/2018 [facility] HEMATOLOGY Neutrophils # 6.8 1.5 - 8.1 08/13/2018 [facility] HEMATOLOGY Lymphocytes # 1.3 1.0 - 5.5 08/13/2018 [facility] HEMATOLOGY Segs 75.6 45.0 - 75.0 08/13/2018 [facility] HEMATOLOGY Lymphocytes 14.5 20.0 - 40.0 08/13/2018 [facility] HEMATOLOGY Monocytes 9.4 2.0 - 12.0 08/13/2018 [facility] HEMATOLOGY RDW 14.6 11.5 - 14.5 08/13/2018 [facility] HEMATOLOGY MCHC 33.6 32.0 - 36.0 08/13/2018 [facility] HEMATOLOGY MPV 7.9 7.4 - 10.4 08/13/2018 [facility] HEMATOLOGY Platelet 202 133 - 450 08/13/2018 [facility] HEMATOLOGY MCH 30.6 27.0 - 31.0 08/13/2018 [facility] HEMATOLOGY MCV 91.2 80.0 - 98.0 08/13/2018 [facility] HEMATOLOGY Hct 32.3 36.0 - 48.0 08/13/2018 [facility] HEMATOLOGY Hgb 10.8 12.0 - 16.0 08/13/2018 [facility] HEMATOLOGY WBC 9.0 3.7 - 10.4 08/13/2018 [facility] HEMATOLOGY RBC 3.54 4.20 - 5.40 08/13/2018 [facility] PARATHYROID PROFILE Ca Norm WB 1.02 1.05 - 1.25 08/13/2018 [facility] PARATHYROID PROFILE Ca Ion WB 1.03 1.05 - 1.25 08/13/2018 [facility] AMPICILLIN+SULBACTAM:SUSC:PT:ISOLATE:ORDQN:MADISON Culture: Urine >100,000 CFU/mL Klebsiella pneumoniae ssp pneumoniae >100,000 CFU/mL Aerococcus urinae 08/12/2018 [facility] AMPICILLIN+SULBACTAM:SUSC:PT:ISOLATE:ORDQN:MADISON Klebsiella pneumoniae ssp pneumoniae Klebsiella pneumoniae ssp pneumoniae 08/12/2018 [facility] HEMATOLOGY INR 1.21 0.85 - 1.17 08/12/2018 [facility] HEMATOLOGY PT 15.4 12.0 - 14.7 08/12/2018 [facility] HEMATOLOGY Basophils # 0.1 0.0 - 0.2 08/12/2018 [facility] PARATHYROID PROFILE Ca Norm WB 1.03 1.05 - 1.25 08/12/2018 [facility] PARATHYROID PROFILE Ca Ion WB 1.03 1.05 - 1.25 08/12/2018 [facility] URINE AND STOOL UA Ketones 60 mg/dL Negative mg/dL 08/12/2018 [facility] URINE AND STOOL UA Glucose 200 mg/dL Negative mg/dL 08/12/2018 [facility] URINE AND STOOL UA Bili Negative *NA* (08/12/18 2:02 AM) Negative 08/12/2018 [facility] URINE AND STOOL UA Leuk Est Large *ABN* (08/12/18 2:02 AM) Negative 08/12/2018 [facility] URINE AND STOOL UA Sq Epi Many /LPF Few /LPF 08/12/2018 [facility] URINE AND STOOL UA RBC 16 0 - 2 08/12/2018 [facility] URINE AND STOOL UA WBC >182 0 - 5 08/12/2018 [facility] URINE AND STOOL UA Blood Small *ABN* (08/12/18 2:02 AM) Negative 08/12/2018 [facility] URINE AND STOOL UA Nitrite Positive *ABN* (08/12/18 2:02 AM) Negative 08/12/2018 [facility] URINE AND STOOL UA Urobilinogen 2.0 0.1 - 1.0 08/12/2018 [facility] URINE AND STOOL UA Mucus Many /LPF None Seen /LPF 08/12/2018 [facility] URINE AND STOOL UA Bacteria Many /HPF None Seen /HPF 08/12/2018 [facility] URINE AND STOOL UA Spec Grav 1.017 <=1.030 08/12/2018 [facility] URINE AND STOOL UA pH 6.0 5.0 - 8.0 08/12/2018 [facility] URINE AND STOOL UA Protein >=300 mg/dL Negative mg/dL 08/12/2018 [facility] URINE AND STOOL UA Turbidity Marked *ABN* (08/12/18 2:02 AM) Clear 08/12/2018 [facility] URINE AND STOOL UA Color Dark Yellow *NA* (08/12/18 2:02 AM) Yellow 08/12/2018 [facility] BLOOD BANK RESULTS ABO/Rh O POS 08/11/2018 [facility] BLOOD BANK RESULTS Antibody Scrn Negative (08/11/18 5:31 PM) 08/11/2018 [facility] CHEM PANEL B/C Ratio 16 6 - 25 08/11/2018 [facility] CHEM PANEL A/G Ratio 0.8 0.7 - 1.6 08/11/2018 [facility] CHEM PANEL Globulin 4.2 2.7 - 4.2 08/11/2018 [facility] CHEM PANEL AST 30 0 - 37 08/11/2018 [facility] CHEM PANEL Total Protein 7.4 6.4 - 8.4 08/11/2018 [facility] CHEM PANEL Bili Total 0.6 0.2 - 1.3 08/11/2018 [facility] CHEM PANEL Alk Phos 69 39 - 136 08/11/2018 [facility] CHEM PANEL ALT 25 0 - 65 08/11/2018 [facility] CHEM PANEL Albumin Lvl 3.2 3.5 - 5.0 08/11/2018 [facility] HEMATOLOGY TEG Interp Thrombelastograph results show shortened value of R and increased value of Angle Alpha. These findings are suggestive of enzymatic hypercoagulation. CPT:54885 08/11/2018 [facility] HEMATOLOGY Coag Index 3.8 -3.0-3.0 - 3.0 08/11/2018 [facility] HEMATOLOGY Ly30 0.7 0.0 - 7.5 08/11/2018 [facility] HEMATOLOGY G-value 12.2 4.5 - 11.0 08/11/2018 [facility] HEMATOLOGY TEG Data See Note (08/11/18 5:31 PM) 08/11/2018 [facility] HEMATOLOGY K-time 0.9 1.0 - 3.0 08/11/2018 [facility] HEMATOLOGY R-time 3.8 5.0 - 10.0 08/11/2018 [facility] HEMATOLOGY Max Amp 70.9 50.0 - 70.0 08/11/2018 [facility] HEMATOLOGY Angle 76.3 53.0 - 72.0 08/11/2018 [facility] HEMATOLOGY PT 14.9 12.0 - 14.7 08/11/2018 [facility] HEMATOLOGY INR 1.16 0.85 - 1.17 08/11/2018 [facility] HEMATOLOGY PTT 31.5 22.9 - 35.8 08/11/2018 [facility] BEDSIDE GLUCOSE TESTING Gluc POC 174 70 - 99 08/26/2013 HI <sup>1</sup>Interpretive Data: Upper Reportable Limit: 200 mg/dL. [facility] BEDSIDE GLUCOSE TESTING Gluc POC Comment 1 Notify RN/ 08/26/2013 NA [facility] CHEMISTRY CK MB 1.7 0.5 - 3.6 08/26/2013 Normal [facility] CHEMISTRY CK MB Index 1.7 0.0 - 2.5 08/26/2013 Normal [facility] CHEMISTRY eGFR 74 08/26/2013 NA <sup>4</sup>Result Comment: The eGFR is calculated using the CKD-EPI formula. In most young, healthy individuals the eGFR will be >90 mL/min/1.73m2. The eGFR declines with age. An eGFR of 60-89 may be normal in some populations, particularly the elderly, for whom the CKD-EPI formula has not been extensively validated. Use of the eGFR is not recommended in the following populations:& lt;br/>
Individuals with unstable creatinine concentrations, including patients and those with serious co-morbid conditions.

Patients with extremes in muscle mass or diet.

The data above are obtained from the National Kidney Disease Education Program (NKDEP) which additionally recommends that when the eGFR is used in patients with extremes of body mass index for purposes of drug dosing, the eGFR should be multiplied by the estimated BMI. [facility] CHEMISTRY Creatinine Lvl 0.8 0.5 - 1.4 08/26/2013 Normal [facility] CHEMISTRY Total CK 98 12 - 191 08/26/2013 Normal <sup>7</sup>Result Comment: reviewed 08/26/2013 01:47 gr [facility] CHEMISTRY Troponin-I 0.02 0.00 - 0.40 08/26/2013 Normal [facility] HEMATOLOGY Platelet 163 133 - 450 08/26/2013 Normal [facility] HEMATOLOGY PTT 36.0 22.9 - 35.8 08/26/2013 HI <sup>10</sup>Interpretive Data: Heparin Therapeutic Range: 57 - 92 Seconds [facility] BEDSIDE GLUCOSE TESTING Gluc POC 193 70 - 99 08/26/2013 HI <sup>2</sup>Interpretive Data: Upper Reportable Limit: 200 mg/dL. [facility] BEDSIDE GLUCOSE TESTING Gluc POC Comment 1 Notify DANIELLE 08/26/2013 NA [facility] CHEMISTRY CK MB Index 1.5 0.0 - 2.5 08/25/2013 Normal [facility] CHEMISTRY CK MB 3.1 0.5 - 3.6 08/25/2013 Normal [facility] CHEMISTRY Total CK 201 12 - 191 08/25/2013 HI [facility] CHEMISTRY Troponin-I 0.03 0.00 - 0.40 08/25/2013 Normal [facility] BEDSIDE GLUCOSE TESTING Gluc POC Comment 1 Notify DANIELLE 08/25/2013 NA [facility] BEDSIDE GLUCOSE TESTING Gluc POC 130 70 - 99 08/25/2013 HI <sup>3</sup>Interpretive Data: Upper Reportable Limit: 200 mg/dL. [facility] CHEMISTRY BNP 39 <=100 08/25/2013 Normal <sup>8</sup>Interpretive Data: Elevated results are in line with increasing severity of
congestive heart failure. Minor elevations between 100 and 300
may be seen with Myocardial Ischemia, Sodium retaining drugs,
and compensated/treated heart failure. [facility] CHEMISTRY eGFR 98 08/25/2013 NA <sup>5</sup>Result Comment: The eGFR is calculated using the CKD-EPI formula. In most young, healthy individuals the eGFR will be >90 mL/min/1.73m2. The eGFR declines with age. An eGFR of 60-89 may be normal in some populations, particularly the elderly, for whom the CKD-EPI formula has not been extensively validated. Use of the eGFR is not recommended in the following populations:& lt;br/>
Individuals with unstable creatinine concentrations, including patients and those with serious co-morbid conditions.

Patients with extremes in muscle mass or diet.

The data above are obtained from the National Kidney Disease Education Program (NKDEP) which additionally recommends that when the eGFR is used in patients with extremes of body mass index for purposes of drug dosing, the eGFR should be multiplied by the estimated BMI. [facility] CHEMISTRY Calcium Lvl 8.7 8.5 - 10.5 08/25/2013 Normal [facility] CHEMISTRY Total Protein 7.4 6.4 - 8.4 08/25/2013 Normal [facility] CHEMISTRY Albumin Lvl 4.0 3.5 - 5.0 08/25/2013 Normal [facility] CHEMISTRY ALT 34 0 - 65 08/25/2013 Normal [facility] CHEMISTRY Alk Phos 90 39 - 136 08/25/2013 Normal [facility] CHEMISTRY AGAP 15.5 10.0 - 20.0 08/25/2013 Normal [facility] CHEMISTRY B/C Ratio 38 6 - 25 08/25/2013 HI [facility] CHEMISTRY Globulin 3.4 2.0 - 4.0 08/25/2013 Normal [facility] CHEMISTRY AST 24 0 - 37 08/25/2013 Normal [facility] CHEMISTRY Bili Total 0.3 0.2 - 1.3 08/25/2013 Normal [facility] CHEMISTRY A/G Ratio 1.2 0.7 - 1.6 08/25/2013 Normal [facility] CHEMISTRY BUN 19 7 - 22 08/25/2013 Normal [facility] CHEMISTRY Glucose Lvl 171 70 - 99 08/25/2013 HI <sup>6</sup>Interpretive Data: Adult reference range values reflect the clinical guidelines
of the [place] [employer]. [facility] CHEMISTRY Creatinine Lvl 0.5 0.5 - 1.4 08/25/2013 Normal [facility] CHEMISTRY Sodium Lvl 142 135 - 145 08/25/2013 Normal [facility] CHEMISTRY Potassium Lvl 3.5 3.5 - 5.1 08/25/2013 Normal [facility] CHEMISTRY Chloride Lvl 105 95 - 109 08/25/2013 Normal [facility] CHEMISTRY CO2 25 24 - 32 08/25/2013 Normal [facility] CHEMISTRY Troponin-I 0.03 0.00 - 0.40 08/25/2013 Normal [facility] CHEMISTRY CK MB 2.9 0.5 - 3.6 08/25/2013 Normal [facility] CHEMISTRY Total CK 145 12 - 191 08/25/2013 Normal [facility] CHEMISTRY CK MB Index 2.0 0.0 - 2.5 08/25/2013 Normal [facility] HEMATOLOGY INR 1.00 0.85 - 1.17 08/25/2013 Normal <sup>9</sup>Interpretive Data: RECOMMENDED RANGES FOR PROTIME INR:
2.0-3.0 for most medical and surgical thromboembolic states.
2.5-3.5 for artificial heart valves and recurrent embolism.

INR SHOULD BE USED ONLY FOR PATIENTS ON STABLE ANTICOAGULANT THERAPY. [facility] HEMATOLOGY PTT 31.7 22.9 - 35.8 08/25/2013 Normal <sup>11</sup>Interpretive Data: Heparin Therapeutic Range: 57 - 92 Seconds [facility] HEMATOLOGY PT 13.1 12.0 - 14.7 08/25/2013 Normal [facility] HEMATOLOGY MPV 8.1 7.4 - 10.4 08/25/2013 Normal [facility] HEMATOLOGY Platelet 182 133 - 450 08/25/2013 Normal [facility] HEMATOLOGY Hgb 12.8 12.0 - 16.0 08/25/2013 Normal [facility] HEMATOLOGY RBC 4.18 4.20 - 5.40 08/25/2013 LOW [facility] HEMATOLOGY WBC 8.4 3.7 - 10.4 08/25/2013 Normal [facility] HEMATOLOGY Hct 36.9 36.0 - 48.0 08/25/2013 Normal [facility] [facility] HEMATOLOGY MCH 30.6 27.0 - 31.0 08/25/2013 Normal [facility] HEMATOLOGY MCV 88.4 81.0 - 99.0 08/25/2013 Normal [facility] HEMATOLOGY MCHC 34.6 32.0 - 36.0 08/25/2013 Normal [facility] HEMATOLOGY RDW 12.6 11.5 - 14.5 08/25/2013 Normal [facility] HEMATOLOGY Eosinophils # 0.2 0.0 - 0.5 08/25/2013 Normal [facility] HEMATOLOGY Basophils # 0.0 0.0 - 0.2 08/25/2013 Normal [facility] HEMATOLOGY Lymphocytes # 2.0 1.0 - 5.5 08/25/2013 Normal [facility] HEMATOLOGY Monocytes # 0.7 0.0 - 0.8 08/25/2013 Normal [facility] HEMATOLOGY Segs-Bands # 5.5 1.5 - 8.1 08/25/2013 Normal [facility] HEMATOLOGY Basophils 0.3 0.0 - 1.0 08/25/2013 Normal [facility] HEMATOLOGY Eosinophils 2.1 0.0 - 4.0 08/25/2013 Normal [facility] HEMATOLOGY Segs 65.9 45.0 - 75.0 08/25/2013 Normal [facility] HEMATOLOGY Lymphocytes 23.9 20.0 - 40.0 08/25/2013 Normal [facility] HEMATOLOGY Monocytes 7.8 2.0 - 12.0 08/25/2013 Normal [facility] BEDSIDE GLUCOSE TESTING Comment1 Notify RN/ 05/16/2012 NA [facility] BEDSIDE GLUCOSE TESTING Gluc POC Lifscn 122 70 - 99 05/16/2012 HI <sup>2</sup>Interpretive Data: Upper Reportable Limit: 200 mg/dL. [facility] BEDSIDE GLUCOSE TESTING Gluc POC Lifscn 98 70 - 99 05/16/2012 Normal <sup>3</sup>Interpretive Data: Upper Reportable Limit: 200 mg/dL. [facility] BEDSIDE GLUCOSE TESTING Comment1 Notify RN/ 05/16/2012 NA [facility] CHEMISTRY Sodium Lvl 142 135 - 145 05/16/2012 Normal [facility] CHEMISTRY Potassium Lvl 3.9 3.5 - 5.1 05/16/2012 Normal [facility] CHEMISTRY Chloride Lvl 106 95 - 109 05/16/2012 Normal [facility] CHEMISTRY Glucose Lvl 108 70 - 99 05/16/2012 HI <sup>7</sup>Interpretive Data: Adult reference range values reflect the clinical guidelines of the [place] [employer]. [facility] CHEMISTRY BUN 14 7 - 22 05/16/2012 Normal [facility] CHEMISTRY CO2 27 24 - 32 05/16/2012 Normal [facility] CHEMISTRY AGAP 12.9 10.0 - 20.0 05/16/2012 Normal [facility] CHEMISTRY Calcium Lvl 7.4 8.5 - 10.5 05/16/2012 LOW [facility] CHEMISTRY Creatinine Lvl 0.5 0.5 - 1.4 05/16/2012 Normal <sup>6</sup>Result Comment: reviewed 05/16/2012 6:05 gr [facility] HEMATOLOGY MPV 7.5 7.4 - 10.4 05/16/2012 Normal [facility] HEMATOLOGY MCV 91.6 81.0 - 99.0 05/16/2012 Normal [facility] HEMATOLOGY MCH 30.7 27.0 - 31.0 05/16/2012 Normal [facility] HEMATOLOGY Platelet 149 133 - 450 05/16/2012 Normal [facility] HEMATOLOGY Hct 26.5 36.0 - 48.0 05/16/2012 LOW [facility] HEMATOLOGY MCHC 33.5 32.0 - 36.0 05/16/2012 Normal [facility] HEMATOLOGY RDW 14.0 11.5 - 14.5 05/16/2012 Normal [facility] HEMATOLOGY Hgb 8.9 12.0 - 16.0 05/16/2012 [facility] HEMATOLOGY WBC 7.0 3.7 - 10.4 05/16/2012 Normal [facility] HEMATOLOGY RBC 2.90 4.20 - 5.40 05/16/2012 [facility] HEMATOLOGY Eosinophils # 0.1 0.0 - 0.5 05/16/2012 Normal [facility] HEMATOLOGY Lymphocytes # 1.4 1.0 - 5.5 05/16/2012 Normal [facility] HEMATOLOGY Monocytes # 0.6 0.0 - 0.8 05/16/2012 Normal [facility] HEMATOLOGY Segs-Bands # 4.9 1.5 - 8.1 05/16/2012 Normal [facility] HEMATOLOGY Lymphocytes 19.6 20.0 - 40.0 05/16/2012 [facility] HEMATOLOGY Monocytes 8.9 2.0 - 12.0 05/16/2012 [facility] HEMATOLOGY Eosinophils 1.7 0.0 - 4.0 05/16/2012 [facility] HEMATOLOGY Basophils 0.4 0.0 - 1.0 05/16/2012 Normal [facility] HEMATOLOGY Segs 69.4 45.0 - 75.0 05/16/2012 Normal [facility] BEDSIDE GLUCOSE TESTING Comment1 Notify RN/MD 05/16/2012 NA [facility] BEDSIDE GLUCOSE TESTING Gluc POC Lifscn 115 70 - 99 05/16/2012 HI <sup>4</sup>Interpretive Data: Upper Reportable Limit: 200 mg/dL. [facility] CHEMISTRY T4 Free 2.44 0.76 - 1.46 05/15/2012 [facility] CHEMISTRY TSH 0.033 0.360 - 3.740 05/15/2012 LOW [facility] CHEMISTRY AGAP 13.9 10.0 - 20.0 05/15/2012 Normal [facility] CHEMISTRY Creatinine Lvl 0.7 0.5 - 1.4 05/15/2012 Normal [facility] CHEMISTRY CO2 26 24 - 32 05/15/2012 Normal [facility] CHEMISTRY Glucose Lvl 87 70 - 99 05/15/2012 Normal <sup>8</sup>Interpretive Data: Adult reference range values reflect the clinical guidelines of the [place] [employer]. [facility] CHEMISTRY BUN 16 7 - 22 05/15/2012 Normal [facility] CHEMISTRY Calcium Lvl 7.4 8.5 - 10.5 05/15/2012 [facility] CHEMISTRY Chloride Lvl 105 95 - 109 05/15/2012 Normal [facility] CHEMISTRY Sodium Lvl 141 135 - 145 05/15/2012 [facility] CHEMISTRY Potassium Lvl 3.9 3.5 - 5.1 05/15/2012 Normal [facility] HEMATOLOGY Eosinophils # 0.1 0.0 - 0.5 05/15/2012 Normal [facility] HEMATOLOGY Monocytes # 0.7 0.0 - 0.8 05/15/2012 [facility] HEMATOLOGY Basophils # 0.0 0.0 - 0.2 05/15/2012 [facility] HEMATOLOGY Segs 75.7 45.0 - 75.0 05/15/2012 [facility] HEMATOLOGY Lymphocytes 15.0 20.0 - 40.0 05/15/2012 [facility] HEMATOLOGY Basophils 0.4 0.0 - 1.0 05/15/2012 [facility] HEMATOLOGY Segs-Bands # 6.5 1.5 - 8.1 05/15/2012 [facility] HEMATOLOGY Lymphocytes # 1.3 1.0 - 5.5 05/15/2012 [facility] HEMATOLOGY Monocytes 8.0 2.0 - 12.0 05/15/2012 [facility] HEMATOLOGY Eosinophils 0.9 0.0 - 4.0 05/15/2012 [facility] HEMATOLOGY MCHC 35.5 32.0 - 36.0 05/15/2012 [facility] HEMATOLOGY RDW 14.1 11.5 - 14.5 05/15/2012 [facility] HEMATOLOGY Platelet 133 133 - 450 05/15/2012 [facility] HEMATOLOGY MPV 8.0 7.4 - 10.4 05/15/2012 [facility] HEMATOLOGY RBC 2.97 4.20 - 5.40 05/15/2012 [facility] HEMATOLOGY Hgb 9.4 12.0 - 16.0 05/15/2012 [facility] HEMATOLOGY Hct 26.5 36.0 - 48.0 05/15/2012 [facility] HEMATOLOGY MCV 89.4 81.0 - 99.0 05/15/2012 [facility] HEMATOLOGY MCH 31.8 27.0 - 31.0 05/15/2012 [facility] HEMATOLOGY WBC 8.6 3.7 - 10.4 05/15/2012 [facility] IMMUNOLOGY Prealbumin 10.5 18.0 - 45.0 05/15/2012 [facility] BLOOD BANK RESULTS ABO/Rh O POS 05/14/2012 Unknown [facility] BLOOD BANK RESULTS RBC product Product available 5 (05/13/2012 19:55:00) 05/14/2012 Normal <sup>5</sup>Result Comment: 05/13/2012 21:35 [id number] NOTIFIED JOHNSON [facility] BLOOD BANK RESULTS Antibody Scrn Negative (05/13/2012 19:55:00) 05/14/2012 Normal [facility] CHEMISTRY Sodium Lvl 141 135 - 145 05/13/2012 Normal [facility] CHEMISTRY Glucose Lvl 156 70 - 99 05/13/2012 HI <sup>9</sup>Interpretive Data: Adult reference range values reflect the clinical guidelines of the [place] [employer]. [facility] CHEMISTRY Creatinine Lvl 0.7 0.5 - 1.4 05/13/2012 Normal [facility] CHEMISTRY BUN 13 7 - 22 05/13/2012 Normal [facility] CHEMISTRY Potassium Lvl 4.2 3.5 - 5.1 05/13/2012 [facility] CHEMISTRY Chloride Lvl 104 95 - 109 05/13/2012 [facility] CHEMISTRY Calcium Lvl 7.1 8.5 - 10.5 05/13/2012 [facility] CHEMISTRY CO2 25 24 - 32 05/13/2012 [facility] CHEMISTRY AGAP 16.2 10.0 - 20.0 05/13/2012 [facility] HEMATOLOGY WBC 7.8 3.7 - 10.4 05/13/2012 [facility] HEMATOLOGY Hgb 8.4 12.0 - 16.0 05/13/2012 [facility] HEMATOLOGY RBC 2.56 4.20 - 5.40 05/13/2012 [facility] HEMATOLOGY Hct 23.7 36.0 - 48.0 05/13/2012 [facility] HEMATOLOGY MCV 92.6 81.0 - 99.0 05/13/2012 [facility] HEMATOLOGY MCH 32.9 27.0 - 31.0 05/13/2012 [facility] HEMATOLOGY RDW 12.1 11.5 - 14.5 05/13/2012 [facility] HEMATOLOGY Platelet 121 133 - 450 05/13/2012 [facility] HEMATOLOGY MCHC 35.5 32.0 - 36.0 05/13/2012 [facility] HEMATOLOGY MPV 8.2 7.4 - 10.4 05/13/2012 Normal [facility] HEMATOLOGY Lymphocytes # 1.0 1.0 - 5.5 05/13/2012 Normal [facility] HEMATOLOGY Monocytes # 0.7 0.0 - 0.8 05/13/2012 Normal [facility] HEMATOLOGY Eosinophils # 0.0 0.0 - 0.5 05/13/2012 Normal [facility] HEMATOLOGY Basophils # 0.0 0.0 - 0.2 05/13/2012 Normal [facility] HEMATOLOGY Segs 77.5 45.0 - 75.0 05/13/2012 HI [facility] HEMATOLOGY Lymphocytes 13.0 20.0 - 40.0 05/13/2012 LOW [facility] HEMATOLOGY Monocytes 9.1 2.0 - 12.0 05/13/2012 Normal [facility] HEMATOLOGY Eosinophils 0.0 0.0 - 4.0 05/13/2012 Normal [facility] HEMATOLOGY Basophils 0.4 0.0 - 1.0 05/13/2012 Normal [facility] HEMATOLOGY Segs-Bands # 6.1 1.5 - 8.1 05/13/2012 Normal [facility] CHEMISTRY Alk Phos 53 39 - 136 05/08/2012 Normal [facility] CHEMISTRY Albumin Lvl 3.8 3.5 - 5.0 05/08/2012 Normal [facility] CHEMISTRY AST 29 0 - 37 05/08/2012 Normal [facility] CHEMISTRY Bili Total 0.4 0.2 - 1.3 05/08/2012 Normal [facility] CHEMISTRY ALT 37 0 - 65 05/08/2012 Normal [facility] CHEMISTRY Total Protein 7.7 6.4 - 8.4 05/08/2012 Normal [facility] CHEMISTRY Globulin 3.9 2.0 - 4.0 05/08/2012 Normal [facility] CHEMISTRY B/C Ratio 23 6 - 25 05/08/2012 Normal [facility] CHEMISTRY A/G Ratio 1.0 0.7 - 1.6 05/08/2012 Normal [facility] HEMATOLOGY Macrocyte 1+ *ABN* (05/08/2012 08:00:00) None Seen 05/08/2012 ABN [facility] HEMATOLOGY PTT 30.4 22.9 - 35.8 05/08/2012 Normal <sup>11</sup>Interpretive Data: Heparin Therapeutic Range: 57 - 92 Seconds [facility] HEMATOLOGY PT 13.5 12.0 - 14.7 05/08/2012 Normal [facility] HEMATOLOGY INR 1.03 0.85 - 1.17 05/08/2012 Normal <sup>10</sup>Interpretive Data: RECOMMENDED RANGES FOR PROTIME INR: 2.0-3.0 for most medical and surgical thromboembolic states. 2.5-3.5 for artificial heart valves and recurrent embolism. INR SHOULD BE USED ONLY FOR PATIENTS ON STABLE ANTICOAGULANT THERAPY. [facility] IMMUNOLOGY Hep C Ab Positive *NA* (05/08/2012 08:00:00) Negative 05/08/2012 NA [facility] IMMUNOLOGY HIV 1/2 Ab Negative *NA* (05/08/2012 08:00:00) Negative 05/08/2012 NA [facility] BACTERIAL - SEROLOGY MRSA by PCR Negative 1 (05/08/2012 07:43:00) 05/08/2012 Normal <sup>1</sup>Interpretive Data: INTERPRETATION: Negative......No MRSA DNA detected by PCR Positive......MRSA DNA detected by PCR ASSAY LIMITATIONS: This is a screening test for colonization by MRSA. A positive test result indicates the patient is colonized by MRSA, but does not necessarily mean that an infection is present or that treatment is necessary. Likewise, a negative test does not exclude colonization or infection. Patients should be evaluated clinically for symptoms and signs of infection before making therapeutic decisions. Routine decolonization is discouraged and should only be considered for select patients after consultation with an infectious diseases specialist. [facility] URINALYSIS UA Urobilinogen 0.1 - 1.0 05/08/2012 NA [facility] URINALYSIS Micro? Not Indicated *NA* (05/08/2012 07:43:00) 05/08/2012 NA [facility] URINALYSIS UA Protein Negative mg/dL (05/08/2012 07:43:00) Negative 05/08/2012 Normal [facility] URINALYSIS UA Spec Grav 1.018 <=1.030 05/08/2012 Normal [facility] URINALYSIS UA pH 6.0 5.0 - 8.0 05/08/2012 Normal [facility] URINALYSIS UA Nitrite Negative (05/08/2012 07:43:00) Negative 05/08/2012 Normal [facility] URINALYSIS UA Blood Negative (05/08/2012 07:43:00) Negative 05/08/2012 Normal [facility] URINALYSIS UA Leuk Est Negative (05/08/2012 07:43:00) Negative 05/08/2012 Normal [facility] URINALYSIS UA Ketones Negative mg/dL *NA* (05/08/2012 07:43:00) Negative 05/08/2012 NA [facility] URINALYSIS UA Bili Negative *NA* (05/08/2012 07:43:00) Negative 05/08/2012 NA [facility] URINALYSIS UA Glucose Negative mg/dL *NA* (05/08/2012 07:43:00) Negative 05/08/2012 NA [facility] URINALYSIS UA Turbidity Clear (05/08/2012 07:43:00) Clear 05/08/2012 Normal [facility] URINALYSIS UA Color Yellow *NA* (05/08/2012 07:43:00) Yellow 05/08/2012 NA [facility] Pathology Reports No Data Provided for This Section Diagnostic Reports Report Value Date Source Brain wo contrast CT EXAM: CT HEAD WITHOUT CONTRAST DATE: 09/04/2018 7:46 AM CDT INDICATION: 78 years old Female patient with history of fall TECHNIQUE: Multiple axial images were obtained through the head from vertex to the skull base. Axial bone algorithm reconstruction images are provided. COMPARISON: CT head 08/11/2018. FINDINGS: No acute intracranial hemorrhage is identified. Mild global brain volume is corresponding dilatation of the ventricles. No parenchymal mass, cervical midline shift is present. The nguyen-white matter differentiation is maintained. No pathologic extra axial fluid is identified. The visualized paranasal sinuses are clear. No mastoid effusion is identified. The bony calvarium is intact. Partial empty sella IMPRESSION: 1. No acute intracranial hemorrhage. 09/04/2018 [facility] [place] Chest 1view DX EXAM: XR CHEST 1 VIEW DATE: 08/14/2018 2:29 PM CDT INDICATION: - chest pain COMPARISON: August 08, 2018 TECHNIQUE: AP chest IMPRESSION: 1. Prominent lung reticulations again seen in both lungs with minimal peribronchial cuffing suggestive of interstitial pulmonary edema or fibrotic changes. Minimal left basilar atelectatic changes. No consolidative changes identified. 2. Cardiomediastinal silhouette is normal for technique. Aortic atherosclerotic disease. 3. Costophrenic sulci are sharp. 4. Osseous structures are stable. 08/14/2018 [facility] Abdomen AP DX EXAM: XR ABDOMEN 1 VIEW DATE: 08/12/2018 10:54 AM CDT INDICATION: - DHT placement COMPARISON: None. TECHNIQUE: Limited AP view of the abdomen for tube placement assessment. Number of images: 1 FINDINGS: Transesophageal feeding tube tip in the pyloric antrum. Other tubes and lines: None. No other changes. IMPRESSION: Tube positions as above. 08/12/2018 [facility] Brain-Outside Consult CT EXAM: CT BRAIN WITHOUT CONTRAST DATE: 08/11/2018 INDICATION: Fall, brain hemorrhage; outside study submitted for 2nd opinion interpretation COMPARISON: Brain MRI dated 04/25/[address] on 08/09/2018 TECHNIQUE: Routine axial images CT images of the brain. The study was done at [place] and is now submitted for 2nd opinion interpretation. IV contrast: None DISCUSSION: Examination is markedly limited by patient motion. Given this limitation, however, there is a focus of increased attenuation in the right frontal cortex (for example, as depicted on series 3 image 41). No focal abnormality is identified in the rest of the brain parenchyma, given the limitation of motion. The ventricles and basal cisterns are patent. No fracture of the calvarium or skull base is detected. The mastoid air cells and visible paranasal sinuses are unremarkable. The orbital globes are symmetric in appearance. No retrobulbar hematoma is identified. IMPRESSION: Focal areas of increased attenuation in the right frontal cortex may represent contusion, given the history of trauma. The study is limited by patient motion, and a repeat study should be considered for better evaluation. 08/11/2018 [facility] Brain wo contrast MRI PATIENT NAME: ABHISHEK BAH : 1940; Age: 78 years y/o Female MR: [id number] STUDY: Brain wo contrast MRI 04/25/2018 7:09 AM CDT ORDERING PHYSICIAN: Nusrat Minor MD CLINICAL INDICATION: F03.90 Unspecified dementia without behavioral disturbance - F03.90 Unspecified dementia without behavioral disturbance; COMPARISON: 07/12/[address] TECHNIQUE: Multiplanar noncontrast MRI of the brain is performed. FINDINGS: BRAIN PARENCHYMA: There is no hemorrhage, mass lesion, extra axial collection, cerebral edema, or mass effect. Diffusion sequences are normal. There is cortical volume loss most evident in the temporal lobes. There are mild nonspecific cerebral white matter signal abnormalities. There are no cortical, brainstem, or cerebellar signal abnormalities.The cerebellar tonsils are above foramen magnum. The pituitary gland is age-appropriate. CEREBELLOPONTINE REGIONS AND SKULL BASE: The cerebellopontine angles appear unremarkable. No skull base abnormality is seen. VENTRICLES/SULCI/CISTERNS: The ventricles are normal in size and configuration. The basal cisterns are patent. VISUALIZED VESSELS: Major intracranial flow voids are preserved. ORBITS, VISUALIZED PARANASAL SINUSES AND MASTOIDS: Paranasal sinuses are clear. The mastoid air cells are clear. No orbital pathology is seen. IMPRESSION: 1. Cortical volume loss most evident in the temporal lobes. Volume loss is mild overall. 2. Very mild, nonspecific white matter signal abnormalities likely reflecting mild chronic microvascular ischemia, migraine, or normal aging process 04/25/2018 [facility] [place] Chest 1view CHEST RADIOGRAPHY CLINICAL HISTORY: Chest pain. COMPARISON IMAGIN07/12/2012 FINDINGS: One view of the chest was obtained. Cardiac silhouette remains enlarged. There is mild prominence central vascularity. Lungs clear of focal infiltrate or consolidation IMPRESSION: Cardiomegaly with mild congestive changes. 08/25/2013 [facility] Consultation Notes No Data Provided for This Section Discharge Summaries No Data Provided for This Section History and Physicals No Data Provided for This Section Vital Signs Vital Sign Value Date Comments Source Height 157.48 cm 09/04/2018 [facility] Weight 79.545 09/04/2018 [facility] BMI Calculated 32.07 09/04/2018 [facility] [place] [place] Neuro Systolic (mm Hg) 122 09/04/2018 [facility] Diastolic (mm Hg) 88 09/04/2018 [facility] Heart Rate 98 09/04/2018 [facility] Temperature Oral (F) 97.8 F 09/04/2018 [facility] Systolic (mm Hg) 138 08/15/2018 [facility] Diastolic (mm Hg) 79 08/15/2018 [facility] Respitory Rate 20 08/15/2018 [facility] Heart Rate 97 08/15/2018 [facility] Temperature Oral (F) 97.9 F 08/15/2018 [facility] Respitory Rate 20 08/15/2018 [facility] Heart Rate 98 08/15/2018 [facility] Systolic (mm Hg) 140 08/15/2018 [facility] Diastolic (mm Hg) 78 08/15/2018 [facility] Temperature Oral (F) 98.0 F 08/15/2018 [facility] Respitory Rate 20 08/15/2018 [facility] Heart Rate 108 08/15/2018 [facility] Systolic (mm Hg) 142 08/15/2018 [facility] Diastolic (mm Hg) 80 08/15/2018 [facility] Temperature Oral (F) 98.1 F 08/15/2018 [facility] Height 157.48 cm 08/11/2018 [facility] BMI Calculated 32.44 08/11/2018 [facility] Weight 80.455 08/11/2018 [facility] Diastolic (mm Hg) 63 08/26/2013 [facility] Systolic (mm Hg) 117 08/26/2013 [facility] Respitory Rate 16 08/26/2013 [facility] Heart Rate 69 08/26/2013 [facility] Temperature Oral (F) 98.5 F 08/26/2013 [facility] Systolic (mm Hg) 100 08/26/2013 [facility] Diastolic (mm Hg) 51 08/26/2013 [facility] Heart Rate 65 08/26/2013 [facility] Respitory Rate 20 08/26/2013 [facility] Temperature Oral (F) 98.1 F 08/26/2013 [facility] Respitory Rate 20 08/26/2013 [facility] Systolic (mm Hg) 125 08/26/2013 [facility] Diastolic (mm Hg) 62 08/26/2013 [facility] Temperature Oral (F) 98.3 F 08/26/2013 [facility] Heart Rate 69 08/26/2013 [facility] Weight 81.364 08/25/2013 [facility] Height 152.4 cm 08/25/2013 [facility] Weight 85.909 07/13/2012 [facility] Height 162.56 cm 07/13/2012 [facility] Height 162.56 cm 07/12/2012 [facility] Weight 84.545 07/12/2012 [facility] Temperature Oral (F) 98.4 F 05/16/2012 [facility] Heart Rate 63 05/16/2012 [facility] Respitory Rate 16 05/16/2012 [facility] Systolic (mm Hg) 125 05/16/2012 [facility] Diastolic (mm Hg) 52 05/16/2012 [facility] Systolic (mm Hg) 110 05/16/2012 [facility] Respitory Rate 16 05/16/2012 [facility] Diastolic (mm Hg) 47 05/16/2012 [facility] Heart Rate 62 05/16/2012 [facility] Temperature Oral (F) 98.6 F 05/16/2012 [facility] Diastolic (mm Hg) 54 05/16/2012 [facility] Systolic (mm Hg) 141 05/16/2012 [facility] Respitory Rate 16 05/16/2012 [facility] Heart Rate 71 05/16/2012 [facility] Temperature Oral (F) 98.8 F 05/16/2012 [facility] Weight 85.455 05/08/2012 [facility] Height 162.56 cm 05/08/2012 [facility] Height 162.56 cm 02/14/2012 [facility] Weight 90.455 02/14/2012 [facility] Respitory Rate 16.0 08/04/2011 [facility] Diastolic (mm Hg) 65.0 08/04/2011 [facility] Peripheral Pulse Rate 59.0 08/04/2011 [facility] Systolic (mm Hg) 129.0 08/04/2011 [facility] Temperature Oral (F) 98.0 F 08/04/2011 [facility] Height 162.56 cm 08/04/2011 [facility] Temperature Oral (F) 98.0 F 08/04/2011 [facility] Systolic (mm Hg) 138.0 08/04/2011 [facility] Respitory Rate 16.0 08/04/2011 [facility] Peripheral Pulse Rate 62.0 08/04/2011 [facility] Diastolic (mm Hg) 70.0 08/04/2011 [facility] Weight 87.273 08/04/2011 [facility] Encounters Location Location Details Encounter Type Encounter Number Reason For Visit Attending Provider ADM Date DC Date Status Source [facility] Emergency [id number] FB IN EYE CHAPARRITA WESTFALL 03/06/2002 03/06/2002 Active [facility] OU [id number] CHEAT PAIN,PARESTHESIA,HYPERGLYCEMIA CLUADINE ESTEBAN 07/04/2011 07/06/2011 Active [facility] Emergency [id number] DANIEL USMAN 08/04/2011 08/04/2011 Discharged [facility] Emergency [id number] JENNIFER JIM 02/14/2012 02/14/2012 Discharged [facility] Inpatient [id number] RIGHT KNEE OSTEOARTHRITIS CLAUDINE DE JESUSDAVID 05/12/2012 05/16/2012 Active [facility] Emergency [id number] MARCOS CHAVEZ 07/12/2012 07/12/2012 Discharged [facility] Emergency [id number] [address] 07/13/2012 07/13/2012 Discharged [facility] OU [id number] DEEPTHI KAMARA 08/25/2013 08/26/2013 [facility] [place] [facility] [id number] Nusrat Minor 04/25/2018 [facility]/26[facility] [id number] Rasheeda Heath 08/11/2018 08/16/2018 [facility] Neurosurgery TM Phone Message [id number] 08/22/2018 08/24/2018 [facility] [place] [place] Neuro [facility] Neurosurgery TM Phone Message [id number] 08/25/2018 08/27/2018 [facility] [place] [place] Neuro [facility] Neurosurgery TM Phone Message [id number] 08/28/2018 08/30/2018 [facility] [place] Outpt Diag Services [id number] Kareem Josue 09/04/2018 09/05/2018 V[facility]I [facility] Neuro[facility] Outpatient [id number] Kareem Josue 09/04/2018 09/05/2018 [facility] [place] [place] Neuro [facility] Ambulatory Pre-Reg [id number] Jamil Anguiano 11/06/2018 11/06/2018 [facility] [place] [place] Neuro [facility] Phone Message [id number] 11/06/2018 11/08/2018 [facility] [place] [place] Neuro Procedures Procedure Code Date Perfomer Comments Source Total replacement of right knee joint [id number] 05/06/2012 [facility]I Acharya Total replacement of right knee joint [id number] 05/06/2012 [facility] Emergency department visit for the evaluation and management of a patient, which requires these 3 katz components: A detailed history; A detailed examination; and Medical decision making of moderate complexity. Counseling [place] [id number] 08/04/2011 [facility] Appendectomy [id number] [facility] [place] [place] [facility] [place] Cholecystectomy [id number] [facility] [place], [place] Thyroid gland operation [id number] [facility], [facility] [place]mos Appendectomy [id number] [facility] Cholecystectomy [id number] [facility] Assessment and Plan No Data Provided for This Section Plan of Care No Data Provided for This Section Social History Social History Date Source Social History TypeResponse Smoking Status Former smoker; Type: Cigarettes; Previous treatment: None; Ready to change: Yes; Exposure to Tobacco Smoke Unable to obtain; Cigarette Smoking Last 365 Days Unable to obtain; Reg Smoking Cessation Counseling Yes; Stopped at age: 48; 1 entered on: 09/04/18 1quit over 30yrs. ago 09/04/2018 [facility] Social History TypeResponse Smoking Status Former smoker; Type: Cigarettes; Previous treatment: None; Ready to change: Yes; Exposure to Tobacco Smoke Unable to obtain; Cigarette Smoking Last 365 Days Unable to obtain; Reg Smoking Cessation Counseling Yes; Stopped at age: 48; 1 entered on: 09/04/18 1quit over 30yrs. ago 09/04/2018 [facility] Social History TypeResponse Smoking Status Former smoker; Type: Cigarettes; Previous treatment: None; Ready to change: Yes; Exposure to Tobacco Smoke Unable to obtain; Cigarette Smoking Last 365 Days Unable to obtain; Reg Smoking Cessation Counseling Yes; Stopped at age: 48; 1 entered on: 09/04/18 1quit over 30yrs. ago 09/04/2018 [facility] Social History TypeResponse 04/26/2018 [facility] Acharya Family History No Data Provided for This Section Advance Directives No Data Provided for This Section Functional Status No Data Provided for This Section
--- OUTSIDE RECORDS SUMMARY | 2019-08-04 19:09 | XMS REPORT | CCD ---
Author Author Auto Generated Organization [facility] Address Unknown Phone Unavailable Care Team Providers Care Histology Technologist Name Role Phone LevimodestaZhang juarez CP Unavailable Oralia Devlin CP Unavailable ChartServer, Login CP Unavailable Debra Sharpe CP [phone] Jennifer Huntley CP Sonny Chavez CP Unavailable Tori Bell CP Unavailable SYSTEM, SYSTEM CP Unavailable Otf Vizcarra CP Lenny Su CP [id number] Elvia Khan CP [phone] Sky Mcmullen CP Unavailable Jorge Peralta CP Elvia Zaragoza CP Unavailable [...]
--- OUTSIDE RECORDS SUMMARY | 2019-08-04 19:09 | XMS REPORT | CCD ---
Author Author Auto Generated Organization [facility] Address Unknown Phone Unavailable Care Team Providers Care Chip Separator Name Role Phone Zhang [place] CP Unavailable Oralia Devlin CP Unavailable ChartServer, Login CP Unavailable Debra Sharpe CP [phone] Jennifer Huntley CP Sonny Chavez CP Unavailable Tori Bell CP Unavailable SYSTEM, SYSTEM CP Unavailable Otf Vizcarra CP Lenny Su CP [id number] Elvia Khan CP [phone] Sky Mcmullen CP Unavailable Eunice Cárdenas CP [...]
--- OUTSIDE RECORDS SUMMARY | 2019-08-04 19:09 | XMS REPORT | CCD ---
Author Author Auto Generated Organization [facility] Address Unknown Phone Unavailable Care Team Providers Care Supervisor [employer] Name Role Phone Zhang [place] CP Unavailable Oralia Devlin CP Unavailable ChartServer, Login CP Unavailable Debra Sharpe CP [phone] Jennifer Huntley CP Sonny Chavez CP Unavailable Tori Bell CP Unavailable SYSTEM, SYSTEM CP Unavailable Otf Vizcarra CP Lenny Su CP [id number] Elvia Khan CP [phone] Sky Mcmullen CP Unavailable Eunice Cárdenas CP [...]
--- OUTSIDE RECORDS SUMMARY | 2019-08-04 19:10 | XMS REPORT | Summary of Care ---
Author Author [facility] Organization [facility] Neurosurgery [facility] Address Unknown Phone Unavailable Encounter HQ Agusto_johanna(FIN) [id number] Date(s): 11/06/18 - 11/06/18 [facility] Neurosurgery [facility] [address] [place] [address]- Attending Physician: [facility] Referring Physician: Jamil Anguiano DO Vital Signs No data available for this section Problem List Condition Effective Dates Status Health Status Informant Anxiety(Confirmed) Active Chest Active pain(Confirmed) Depression(Confirmed Active ) Diabetes Active mellitus(Confirmed) DM II [Diabetes Resolved mellitus type II](Confirmed) HTN(Confirmed) Resolved Hyperlipidemia(Confi Active rmed) Hypertension(Confirm Active ed) Hypothyroid(Confirme Resolved d) Osteoarthritis(Confi Active rmed) Pain(Confirmed) Active Thyroidectomy(Confir Active med) Allergies, Adverse Reactions, Alerts Substance Reaction Severity Status Levaquin Active NKFA Active Medications No data available for this section Results No data available for this section Immunizations Given and Recorded Vaccine Date Status Refusal Reason tetanus-diphtheria toxoids 07/12/12 Given pneumococcal 23-valent vaccine 07/06/11 Given Procedures Procedure Date Related Diagnosis Body Site Status Total replacement of right knee joint 05/06/12 Completed Appendectomy Completed Appendectomy Completed Cholecystectomy Completed Thyroid gland operation Completed Social History Social History Type Response Smoking Status Former smoker; Type: Cigarettes; Previous treatment: None; Ready to change: Yes; Exposure to Tobacco Smoke Unable to obtain; Cigarette Smoking Last 365 Days Unable to obtain; Reg Smoking Cessation Counseling Yes; Stopped at age: 48; 1 entered on: 09/04/18 1quit over 30yrs. ago Assessment and Plan No data available for this section
--- OUTSIDE RECORDS SUMMARY | 2019-08-04 19:10 | XMS REPORT | Summary of Care ---
Author Author [facility] Organization [facility] Address Unknown Phone Unavailable Encounter KELTON Lopez(BRITTANY) [id number] Date(s): 08/11/18 - 08/15/18 [facility] [address] [employer] provided by [facility] [place] [address]- Encounter Diagnosis Traumatic subarachnoid hemorrhage without loss of consciousness, initial encount er (Final) - 10/29/18 Urinary tract infection, site not specified (Final) - Precipitous drop in hematocrit (Final) - Dementia in other diseases classified elsewhere without behavioral disturbance (Final) - Alzheimer's disease, unspecified (Final) - Essential (primary) hypertension (Final) - Hypothyroidism, unspecified (Final) - Fall on same level from slipping, tripping and stumbling without subsequent stri mukesh against object, initial encounter (Final) - Other chronic pain (Final) - Coma scale, best motor response, localizes pain, at hospital admission (Final) - Coma scale, eyes open, to sound, at hospital admission (Final) - Coma scale, best verbal response, incomprehensible words, at hospital admission (Final) - Hyperlipidemia, unspecified (Final) - [facility] (current) use of aspirin (Final) - Type 2 diabetes mellitus with hyperglycemia (Final) - Hypokalemia (Final) - Dysphagia, unspecified (Final) - [facility] (current) use of insulin (Final) - Discharge Disposition: Long-Term Facility Attending Physician: Jameel Hare MD Admitting Physician: Kareem Josue MD Referring Physician: Rasheeda Heath MD Vital Signs 1 2 3 Most recent to oldest [Reference Range]: 157.48 cm (08/11/18 6:38 PM) Height 97.9 DegF (08/15/18 4:06 PM) 98.0 DegF (08/15/18 11:18 AM) 98.1 DegF (08/15/18 7:26 AM) Temperature Oral [96.4-99.1 DegF] 138/79 mmHg (08/15/18 4:06 PM) 140/78 mmHg (08/15/18 11:18 AM) 142/80 mmHg *HI* (08/15/18 7:26 AM) Blood Pressure [90-140/60-90 mmHg] 20 BRMIN (08/15/18 4:06 PM) 20 BRMIN (08/15/18 11:18 AM) 20 BRMIN (08/15/18 7:26 AM) Respiratory Rate [14-20 BRMIN] 97 bpm (08/15/18 4:06 PM) 98 bpm (08/15/18 11:18 AM) 108 bpm *HI* (08/15/18 7:26 AM) Peripheral Pulse Rate [60-100 bpm] 80.455 kg (08/11/18 6:38 PM) Weight 32.44 m2 (08/11/18 6:38 PM) Body Mass Index Problem List Condition Effective Dates Status Health Status Informant Anxiety(Confirmed) Active Chest Active pain(Confirmed) Depression(Confirmed Active ) Diabetes Active mellitus(Confirmed) DM II [Diabetes Resolved mellitus type II](Confirmed) HTN(Confirmed) Resolved Hyperlipidemia(Confi Active rmed) Hypertension(Confirm Active ed) Hypothyroid(Confirme Resolved d) Osteoarthritis(Confi Active rmed) Pain(Confirmed) Active Thyroidectomy(Confir Active med) Allergies, Adverse Reactions, Alerts Substance Reaction Severity Status Levaquin Active NKFA Active Medications acetaminophen 650 mg, 2 tab, Route: PO, Drug form: TAB, Q4H, Dosing Weight 81.364, kg, PRN Michael n 1-3/Temp > 100.4 F, Start date: 08/11/18 17:20:00 CDT, Duration: 30 day, Stop date: 09/10/18 17:19:00 CDT Start Date: 08/11/18 Stop Date: 08/15/18 Status: Discontinued alendronate 70 mg oral tablet 70 mg=1 tab, PO, Q7D, SATURDAY, 0 Refill(s) Start Date: 08/13/18 Status: Ordered amLODIPine 10 mg, 1 tab, Route: PO, Drug form: TAB, Daily, Dosing Weight 80.455, kg, Start date: 08/14/18 9:00:00 CDT, Duration: 30 day, Stop date: 09/12/18 9:00:00 CDT Notes: (Same as: Funmi) Start Date: 08/14/18 Stop Date: 08/15/18 Status: Discontinued amLODIPine 5 mg, 1 tab, Route: PO, Drug form: TAB, Daily, Dosing Weight 80.455, kg, Priorit y: NOW, Start date: 08/12/18 9:21:00 CDT, Duration: 30 day, Stop date: 09/11/18 9:00:00 CDT Notes: (Same as: Funmi) Start Date: 08/12/18 Stop Date: 08/13/18 Status: Discontinued aspirin 81 mg tablet, chewable 1/2 tablet, PO, Daily, # 30 tab, 0 Refill(s) Start Date: 08/11/18 Stop Date: 08/15/18 Status: Discontinued buPROPion 75 mg oral tablet 75 mg=1 tab, PO, Daily, # 270 tab, 0 Refill(s) Start Date: 08/11/18 Status: Ordered calcium carbonate 500 mg (200 mg elemental calcium) oral tablet 500 mg, 1 tab, Route: PO, Drug form: CHEWTAB, PRN, Dosing Weight 80.455, kg, PRN Abnormal Lab Result, FOR ICU USE ONLY, Start date: 08/11/18 20:34:00 CDT, Durat ion: 30 day, Stop date: 09/10/18 20:33:00 CDT Notes: (Same As: Dilcia)Calcium Carbonate 500 to=155 mg elemental calcium Dose=_ mg calcium carbonate ( mg elemental calcium) Start Date: 08/11/18 Stop Date: 08/13/18 Status: Discontinued calcium carbonate 500 mg (200 mg elemental calcium) oral tablet 1,000 mg, 2 tab, Route: PO, Drug form: CHEWTAB, PRN, Dosing Weight 80.455, kg, P RN Abnormal Lab Result, FOR ICU USE ONLY, Start date: 08/11/18 20:34:00 CDT, Dur ation: 30 day, Stop date: 09/10/18 20:33:00 CDT Notes: (Same As: Marcuss)Calcium Carbonate 500 wh=903 mg elemental calcium Dose=_ mg calcium carbonate ( mg elemental calcium) Start Date: 08/11/18 Stop Date: 08/13/18 Status: Discontinued calcium gluconate + Sodium Chloride 0.9% IV 50 mL 1 gm, 10 mL, Route: IVPB, Drug form: INJ, PRN, Dosing Weight 80.455, kg, PRN Abn ormal Lab Result, Start date: 08/11/18 20:34:00 CDT, Duration: 30 day, Stop date : 09/10/18 20:33:00 CDT, FOR ICU USE ONLY Notes: WASTE: F/P - Sink; E - Municipal Trash Bin Start Date: 08/11/18 Stop Date: 08/13/18 Status: Discontinued calcium-vitamin D 185 mg-1000U 1 tab, PO, Daily, # 100 tab, 0 Refill(s) Start Date: 08/11/18 Status: Ordered cefTRIAXone 1 gm, Route: IVP, Drug form: PDR/INJ, [id number], Dosing Weight 80.455, kg, Priorit y: NOW, Start date: 08/12/18 3:12:00 CDT, Duration: 7 day, Stop date: 08/18/18 3 :12:00 CDT, ABX Indication: Urinary Tract Infection Notes: (Same As: Rocephin).Use with 100 mL NS and infuse over 30 min MEDICA TION WASTE Product Size: 1000 mgProduct Wasted: ___ mg Start Date: 08/12/18 Stop Date: 08/15/18 Status: Discontinued CeleBREX 200 mg oral capsule 200 mg=1 cap, PO, Daily, PRN Pain, # 10 cap, 0 Refill(s) Start Date: 08/11/18 Stop Date: 08/15/18 Status: Discontinued Colace 100 mg oral capsule 100 mg=1 cap, PO, BID, 0 Refill(s) Start Date: 08/11/18 Stop Date: 08/15/18 Status: Discontinued Dextrose 50% Syringe 25 gm, 50 mL, Route: IVP, Drug Form: INJ, Dosing Weight 81.364, kg, PRN, PRN Abn ormal Lab Result, Start date: 08/11/18 17:20:00 CDT, Duration: 30 day, Stop date : 09/10/18 17:19:00 CDT Start Date: 08/11/18 Stop Date: 08/15/18 Status: Discontinued Dextrose 50% Syringe 6.25 gm, 12.5 mL, Route: IVP, Drug Form: INJ, Dosing Weight 81.364, kg, PRN, PRN Abnormal Lab Result, Start date: 08/11/18 17:20:00 CDT, Duration: 30 day, Stop date: 09/10/18 17:19:00 CDT Start Date: 08/11/18 Stop Date: 08/15/18 Status: Discontinued Dextrose 50% Syringe 12.5 gm, 25 mL, Route: IVP, Drug Form: INJ, Dosing Weight 81.364, kg, PRN, PRN A bnormal Lab Result, Start date: 08/11/18 17:20:00 CDT, Duration: 30 day, Stop da te: 09/10/18 17:19:00 CDT Start Date: 08/11/18 Stop Date: 08/15/18 Status: Discontinued docusate 100 mg, 10 mL, Route: PO, Drug form: LIQ, Q12H, Dosing Weight 81.364, kg, Start date: 08/11/18 21:00:00 CDT, Duration: 30 day, Stop date: 09/10/18 9:00:00 CDT Notes: (Same as: Colace) Start Date: 08/11/18 Stop Date: 08/15/18 Status: Discontinued Exelon 4.6 mg, 1 patch, Route: TOP, Drug form: ERFILM, Q24H, Start date: 08/13/18 15:00 :00 CDT, Duration: 30 day, Stop date: 09/11/18 15:00:00 CDT Notes: Same as Exelon"Remove old patch before application of new patch" Start Date: 08/13/18 Stop Date: 08/15/18 Status: Discontinued Fish Oil 1200 mg oral capsule 1,200 mg=1 cap, PO, Daily, 0 Refill(s) Start Date: 08/11/18 Status: Ordered Haldol 0.5 mg, 0.1 mL, Route: IV, Drug form: INJ, Q4H, Dosing Weight 80.455, kg, PRN as needed for agitation, Start date: 08/14/18 17:29:00 CDT, Duration: 30 day, Stop date: 09/13/18 17:28:00 CDT Notes: (Same as: Haldol) Start Date: 08/14/18 Stop Date: 08/15/18 Status: Discontinued heparin 5000 units/mL injectable solution 5,000 unit, 1 mL, Route: SUB-Q, Drug form: INJ, Q8H, Dosing Weight 80.455, kg, S tart date: 08/12/18 8:00:00 CDT, Duration: 30 day, Stop date: 09/11/18 0:00:00 C DT Notes: porcine heparin Start Date: 08/12/18 Stop Date: 08/15/18 Status: Discontinued hydrALAZINE 10 mg, 1 tab, Route: PO, Drug form: TAB, Q6Hnow, Dosing Weight 80.455, kg, Prior ity: NOW, Start date: 08/12/18 15:27:00 CDT, Duration: 30 day, Stop date: 12:00:00 CDT Notes: (Same as: Apresoline) May interfere w/enteral feedings.Take With Food Start Date: 08/12/18 Stop Date: 08/14/18 Status: Discontinued hydrALAZINE 10 mg, 1 tab, Route: PO, Drug form: TAB, Q6H, Dosing Weight 80.455, kg, Start da te: 08/12/18 18:00:00 CDT, Duration: 30 day, Stop date: 09/11/18 12:00:00 CDT Start Date: 08/12/18 Stop Date: 08/12/18 Status: Canceled ibuprofen 600 mg, 1 tab, Route: PO, Drug form: TAB, Q6H, Dosing Weight 80.455, kg, PRN Michael n Score 4-6, Start date: 08/14/18 13:11:00 CDT, Duration: 30 day, Stop date: 13:10:00 CDT Notes: (Same as: Motrin)"Do Not Crush" Take with food. Start Date: 08/14/18 Stop Date: 08/15/18 Status: Discontinued insulin isophane-NPH 15 unit, Route: SUB-Q, Q8H, Dosing Weight 80.455, kg, Start date: 08/13/18 16:00 :00 CDT, Duration: 30 day, Stop date: 09/12/18 8:00:00 CDT Start Date: 08/13/18 Stop Date: 08/13/18 Status: Canceled insulin isophane-NPH 10 unit, 0.1 mL, Route: SUB-Q, Drug form: INJ, Bedtime, Dosing Weight 80.455, kg , Start date: 08/14/18 21:00:00 CDT, Duration: 30 day, Stop date: 09/12/18 21:00 :00 CDT Notes: Roll in palms of hands gently; Do not shake vigorously. (Same as: Shama del rosario N)Do not hold insulin without contacting prescriberWASTE: Huang Granger; E - [facility] Tr[facility] Stable for 28 days at room temperatureExpires in days f rom Date Start Date: 08/14/18 Stop Date: 08/15/18 Status: Discontinued insulin isophane-NPH 20 unit, 0.2 mL, Route: SUB-Q, Drug form: INJ, Before Breakfast, Dosing Weight 8 0.455, kg, Start date: 08/14/18 7:30:00 CDT, Duration: 30 day, Stop date: 7:30:00 CDT Notes: Roll in palms of hands gently; Do not shake vigorously. (Same as: Shama del rosario N)Do not hold insulin without contacting prescriberWASTE: Marva/P Stacy Granger; E - [place] [facility] Tr[facility] Stable for 28 days at room temperatureExpires in days f rom Date Start Date: 08/14/18 Stop Date: 08/15/18 Status: Discontinued insulin isophane-NPH 20 unit, 0.2 mL, Route: SUB-Q, Drug form: INJ, Q12H, Dosing Weight 80.455, kg, S tart date: 08/13/18 10:02:00 CDT, Duration: 30 day, Stop date: 09/12/18 9:00:00 CDT Notes: Roll in palms of hands gently; Do not shake vigorously. (Same as: Shama n N)Do not hold insulin without contacting prescriberWASTE: F/P - Black; E - [facility] Stable for 28 days at room temperatureExpires in days f rom Date Start Date: 08/13/18 Stop Date: 08/15/18 Status: Discontinued insulin regular 100 units/mL human recombinant 3 unit, 0.03 mL, Route: SUB-Q, Drug form: SOLN, PRN, Dosing Weight 81.364, kg, P RN Abnormal Lab Result, Start date: 08/11/18 17:20:00 CDT, Duration: 30 day, Sto p date: 09/10/18 17:19:00 CDT Notes: (Restricted to patients requiring a dose > 60 units)WASTE: F/P - Black; E - Municipal Trash Bin Stable for 28 days at room temperatureExpires in days from Date Start Date: 08/11/18 Stop Date: 08/15/18 Status: Discontinued insulin regular 100 units/mL human recombinant 5 unit, 0.05 mL, Route: SUB-Q, Drug form: SOLN, PRN, Dosing Weight 81.364, kg, P RN Abnormal Lab Result, Start date: 08/11/18 17:20:00 CDT, Duration: 30 day, Sto p date: 09/10/18 17:19:00 CDT Notes: (Restricted to patients requiring a dose > 60 units)WASTE: F/P - Black; E - Municipal Trash Bin Stable for 28 days at room temperatureExpires in days from Date Start Date: 08/11/18 Stop Date: 08/15/18 Status: Discontinued insulin regular 100 units/mL human recombinant 7 unit, 0.07 mL, Route: SUB-Q, Drug form: SOLN, PRN, Dosing Weight 81.364, kg, P RN Abnormal Lab Result, Start date: 08/11/18 17:20:00 CDT, Duration: 30 day, Sto p date: 09/10/18 17:19:00 CDT Notes: (Restricted to patients requiring a dose > 60 units)WASTE: F/P - Black; E - Municipal Trash Bin Stable for 28 days at room temperatureExpires in days from Date Start Date: 08/11/18 Stop Date: 08/15/18 Status: Discontinued Keppra 500 mg, 1 tab, Route: PO, Drug form: TAB, Q12H, Dosing Weight 81.364, kg, Start date: 08/11/18 21:00:00 CDT, Duration: 30 day, Stop date: 09/10/18 9:00:00 CDT Notes: (Same as:Keppra) Start Date: 08/11/18 Stop Date: 08/15/18 Status: Discontinued Lasix 20 mg oral tablet 20 mg, 1 tab, Route: PO, Drug form: TAB, ONCE, Dosing Weight 80.455, kg, Start d ate: 08/14/18 16:03:00 CDT, Stop date: 08/14/18 16:03:00 CDT Notes: (Same as: Lasix) May cause GI upset. Give with food or milk. Start Date: 08/14/18 Stop Date: 08/14/18 Status: Completed levETIRAcetam 500 mg, Route: PO, Drug form: TAB, Q12H, Dosing Weight 81.364, kg, Start date: 0 08/11/18 21:00:00 CDT, Duration: 30 day, Stop date: 09/10/18 9:00:00 CDT Start Date: 08/11/18 Stop Date: 08/11/18 Status: Canceled levETIRAcetam 500 mg oral tablet 500 mg=1 tab, PO, Q12H, # 6 tab, 0 Refill(s), Pharmacy: [id number] Start Date: 08/15/18 Stop Date: 08/18/18 Status: Ordered Levothroid 100 microgram, 1 tab, Route: PO, Drug form: TAB, Q630AM, Start date: 08/12/18 6: 30:00 CDT, Duration: 30 day, Stop date: 09/10/18 6:30:00 CDT Start Date: 08/12/18 Stop Date: 08/15/18 Status: Discontinued levothyroxine Route: IVP, Drug form: INJ, ONCE, Dosing Weight 80.455, kg, Start date: 08/12/18 6:30:00 CDT, Stop date: 08/12/18 6:30:00 CDT Notes: (Same as: Synthroid)Reconstitute with 5ml of NS. Final concentration=20 micrograms/ml. Use immediately after reconstitution and discard remaining soluti on. Start Date: 08/12/18 Stop Date: 08/12/18 Status: Completed levothyroxine 175 mcg, PO, Daily, 0 Refill(s) Start Date: 08/11/18 Status: Ordered levothyroxine 175 microgram, Route: PO, Drug form: TAB, Q630AM, Dosing Weight 81.364, kg, Star t date: 08/12/18 6:30:00 CDT, Duration: 30 day, Stop date: 09/10/18 6:30:00 CDT Start Date: 08/12/18 Stop Date: 08/11/18 Status: Deleted lisinopril 20 mg, 1 tab, Route: PO, Drug form: TAB, Daily, Dosing Weight 80.455, kg, Priori ty: NOW, Start date: 08/12/18 9:21:00 CDT, Duration: 30 day, Stop date: 09/11/18 9:00:00 CDT Notes: (Same as: Prinivil, Zestril) Start Date: 08/12/18 Stop Date: 08/15/18 Status: Discontinued magnesium oxide 800 mg, 2 tab, Route: PO, Drug form: TAB, PRN, Dosing Weight 80.455, kg, PRN Abn ormal Lab Result, FOR ICU USE ONLY, Start date: 08/11/18 20:34:00 CDT, Duration: 30 day, Stop date: 09/10/18 20:33:00 CDT Notes: (Same as: Mag-Ox 400)Magnesium oxide [id number] elemental magnesiumDose= ____mg magnesium oxide (___mg elemental magnesium) Start Date: 08/11/18 Stop Date: 08/13/18 Status: Discontinued magnesium sulfate 2 gm, 50 mL, Route: IVPB, Drug form: INJ, PRN, Dosing Weight 80.455, kg, PRN Abn ormal Lab Result, Start date: 08/11/18 20:34:00 CDT, Duration: 30 day, Stop date : 09/10/18 20:33:00 CDT, FOR ICU USE ONLY Notes: WASTE: F/P - Sink; E - Municipal Trash Bin Start Date: 08/11/18 Stop Date: 08/13/18 Status: Discontinued meloxicam 15 mg oral tablet 15 mg=1 tab, PO, Daily, PRN Pain, # 30 tab, 1 Refill(s) Start Date: 08/11/18 Stop Date: 08/15/18 Status: Discontinued nitroglycerin 0.4 mg sublingual tablet 0.4 mg=1 tab, SL, Q5Min, PRN Chest pain, Give up to 3 doses. Call 911 if pain pe rsists., # 100 tab, 0 Refill(s) Start Date: 08/11/18 Status: Ordered pantoprazole 40 mg, 1 tab, Route: PO, Drug form: ECTAB, Before Dinner, Dosing Weight 81.364, kg, Start date: 08/12/18 16:30:00 CDT, Duration: 30 day, Stop date: 09/10/18 16: 30:00 CDT Notes: Tablet should not be chewed or crushed.(Same as: Protonix) Start Date: 08/12/18 Stop Date: 08/15/18 Status: Discontinued pantoprazole 40 mg, Route: PO, Drug form: ECTAB, BID-Before Meals, Dosing Weight 81.364, kg, Start date: 08/12/18 7:30:00 CDT, Duration: 30 day, Stop date: 09/10/18 16:30:00 CDT Start Date: 08/12/18 Stop Date: 08/11/18 Status: Canceled pneumococcal 13-valent vaccine 0.5 mL, Route: IM, Drug Form: INJ, ONCALL, Start date: 08/11/18 20:32:34 CDT, St op date: 09/10/18 20:27:34 CDT Notes: Shake well prior to use (Same as: Prevjen 13) Start Date: 08/11/18 Stop Date: 08/15/18 Status: Discontinued potassium chloride 20 mEq, 15 mL, Route: PO, Drug form: LIQ, ONCE, Dosing Weight 80.455, kg, Start date: 08/13/18 9:13:00 CDT, Stop date: 08/13/18 9:13:00 CDT Notes: (Same as: Potassium Chloride) Start Date: 08/13/18 Stop Date: 08/13/18 Status: Completed potassium chloride 20 mEq, 100 mL, Route: IVPB, Drug form: INJ, PRN, Dosing Weight 80.455, kg, PRN Abnormal Lab Result, Via central line, Start date: 08/11/18 20:34:00 CDT, Durati on: 30 day, Stop date: 09/10/18 20:33:00 CDT, FOR ICU USE ONLY Notes: (Same as: KCL) Infuse no faster than 10 mEq/hr if given peripherally. Start Date: 08/11/18 Stop Date: 08/13/18 Status: Discontinued potassium chloride 20 mEq, 15 mL, Route: NJ, Drug form: LIQ, PRN, Dosing Weight 80.455, kg, PRN Abn ormal Lab Result, Start date: 08/11/18 20:34:00 CDT, Duration: 30 day, Stop date : 09/10/18 20:33:00 CDT, FOR ICU USE ONLY Notes: (Same as: Potassium Chloride) Start Date: 08/11/18 Stop Date: 08/13/18 Status: Discontinued potassium chloride 20 mEq, 1 tab, Route: PO, Drug form: ERTAB, PRN, Dosing Weight 80.455, kg, PRN A bnormal Lab Result, Start date: 08/11/18 20:34:00 CDT, Duration: 30 day, Stop da te: 09/10/18 20:33:00 CDT, FOR ICU USE ONLY Notes: (Same as: K-Dur 20)"Do Not Crush"For patients unable to swallow tablet, d issolve in one half glass of water. Allow about 2 minutes for the tablets to dis integrate. Stir before giving to prepare slurry and administer.Please exclude Pa tients with feeding tube less than 14 Turkmen (Dobhoff, J-tube etc) and pediat chun and patients. With food and full glass of water Start Date: 08/11/18 Stop Date: 08/13/18 Status: Discontinued potassium chloride 10 mEq, 50 mL, Route: IVPB, Drug form: INJ, PRN, Dosing Weight 80.455, kg, PRN A bnormal Lab Result, Via peripheral line, Start date: 08/11/18 20:34:00 CDT, Dura tion: 30 day, Stop date: 09/10/18 20:33:00 CDT, FOR ICU USE ONLY Notes: (Same as: KCL) Infuse over 2 hours. Start Date: 08/11/18 Stop Date: 08/13/18 Status: Discontinued potassium chloride 20 mEq oral tablet, extended release 20 mEq, 1 tab, Route: PO, Drug form: ERTAB, ONCE, Dosing Weight 80.455, kg, Star t date: 08/13/18 8:07:00 CDT, Stop date: 08/13/18 8:07:00 CDT Notes: (Same as: K-Dur 20)"Do Not Crush"For patients unable to swallow tablet, d issolve in one half glass of water. Allow about 2 minutes for the tablets to dis integrate. Stir before giving to prepare slurry and administer.Please exclude Pa tients with feeding tube less than 14 Turkmen (Dobhoff, J-tube etc) and pediat chun and patients. With food and full glass of water Start Date: 08/13/18 Stop Date: 08/13/18 Status: Deleted potassium phosphate + Sodium Chloride 0.9% IV 250 mL 30 mmol, 10 mL, Route: IVPB, Drug form: INJ, PRN, Dosing Weight 80.455, kg, PRN Abnormal Lab Result, Start date: 08/11/18 20:34:00 CDT, Duration: 30 day, Stop d ate: 09/10/18 20:33:00 CDT, FOR ICU USE ONLY Notes: (Same as: K Phosphate.)Do not infuse phosphorous concurrently in the same line as TPN or IVF that contains calcium. For double lumen central lines, phosp horous may be infused in a separate lumen from TPN. 1 mMol phoshate has 1.47 mE q potassium Infuse over 4 hours Start Date: 08/11/18 Stop Date: 08/13/18 Status: Discontinued potassium phosphate + Sodium Chloride 0.9% IV 250 mL 45 mmol, 15 mL, Route: IVPB, Drug form: INJ, PRN, Dosing Weight 80.455, kg, PRN Abnormal Lab Result, Start date: 08/11/18 20:34:00 CDT, Duration: 30 day, Stop d ate: 09/10/18 20:33:00 CDT, FOR ICU USE ONLY Notes: (Same as: K Phosphate.)Do not infuse phosphorous concurrently in the same line as TPN or IVF that contains calcium. For double lumen central lines, phosp horous may be infused in a separate lumen from TPN. 1 mMol phoshate has 1.47 mE q potassium Infuse over 4 hours Start Date: 08/11/18 Stop Date: 08/13/18 Status: Discontinued potassium phosphate + Sodium Chloride 0.9% IV 250 mL 15 mmol, 5 mL, Route: IVPB, Drug form: INJ, PRN, Dosing Weight 80.455, kg, PRN A bnormal Lab Result, Start date: 08/11/18 20:34:00 CDT, Duration: 30 day, Stop da te: 09/10/18 20:33:00 CDT, FOR ICU USE ONLY Notes: (Same as: K Phosphate.)Do not infuse phosphorous concurrently in the same line as TPN or IVF that contains calcium. For double lumen central lines, phosp horous may be infused in a separate lumen from TPN. 1 mMol phoshate has 1.47 mE q potassium Infuse over 4 hours Start Date: 08/11/18 Stop Date: 08/13/18 Status: Discontinued potassium phosphate-sodium phosphate 250 mg-280 mg-160 mg oral powder for recons titution 2 pkt, Route: PO, Drug Form: PDR/REC, Dosing Weight 80.455, kg, PRN, PRN Abnorma l Lab Result, FOR ICU USE ONLY, Start date: 08/11/18 20:34:00 CDT, Duration: 30 day, Stop date: 09/10/18 20:33:00 CDT Notes: (Same as: Phos-NaK) Each 1.5 gm pkt has 250mg phosphorous. Mix w/2.5oz w ater and stir. Start Date: 08/11/18 Stop Date: 08/13/18 Status: Discontinued rivastigmine 4.6 mg/24 hr transdermal film, extended release =1 patch, TOP, Daily, apply to area that is clean/dry/hairless & free of redness/irritation/[place]/cuts, # 30 patch, 1 Refill(s) Start Date: 08/11/18 Stop Date: 09/10/18 Status: Ordered Saline Flush 0.9% 10 ml, Route: IVP, Drug Form: INJ, Dosing Weight 81.364, kg, PRN, PRN Line Flush , Start date: 08/11/18 17:20:00 CDT, Duration: 30 day, Stop date: 09/10/18 17:19 :00 CDT Notes: (Same as: BD Posiflush) Start Date: 08/11/18 Stop Date: 08/15/18 Status: Discontinued Saline Flush 0.9% 10 ml, Route: IVP, Drug Form: INJ, Dosing Weight 81.364, kg, Q12H, Start date: 0 08/11/18 21:00:00 CDT, Duration: 30 day, Stop date: 09/10/18 9:00:00 CDT Notes: (Same as: BD Posiflush) Start Date: 08/11/18 Stop Date: 08/15/18 Status: Discontinued senna 8.6 mg, 1 tab, Route: PO, Drug Form: TAB, Dosing Weight 81.364, kg, Q12H, Start date: 08/11/18 21:00:00 CDT, Duration: 30 day, Stop date: 09/10/18 9:00:00 CDT Notes: (Same as: Senokot) Start Date: 08/11/18 Stop Date: 08/15/18 Status: Discontinued SEROquel 12.5 mg, PO, Bedtime, PRN Sleep, 0 Refill(s) Start Date: 08/11/18 Status: Ordered SEROquel 25 mg, 1 tab, Route: PO, Drug form: TAB, Q4H, Dosing Weight 80.455, kg, PRN Agit ation, Start date: 08/14/18 17:29:00 CDT, Duration: 30 day, Stop date: 09/13/18 17:28:00 CDT Notes: (Same as: SEROquel) Start Date: 08/14/18 Stop Date: 08/15/18 Status: Discontinued Sodium Chloride 0.9% IV 1,000 mL 1,000 mL, Rate: 75 ml/hr, Infuse over: 13.3 hr, Route: IV, Dosing Weight 81.364 kg, Total Volume: 1,000, Start date: 08/11/18 17:20:00 CDT, Duration: 30 day, St op date: 09/10/18 17:19:00 CDT, 1.89, m2 Start Date: 08/11/18 Stop Date: 08/14/18 Status: Discontinued sodium phosphate + Sodium Chloride 0.9% IV 250 mL 30 mmol, 10 mL, Route: IVPB, Drug form: INJ, PRN, Dosing Weight 80.455, kg, PRN Abnormal Lab Result, Start date: 08/11/18 20:34:00 CDT, Duration: 30 day, Stop d ate: 09/10/18 20:33:00 CDT, FOR ICU USE ONLY Notes: Infuse over 4 hour. Do not infuse phosphorous concurrently in the same li ne as TPN or IVF that contains calcium. For double lumen central lines, phosphor ous may be infused in a separate lumen from TPN. Start Date: 08/11/18 Stop Date: 08/13/18 Status: Discontinued sodium phosphate + Sodium Chloride 0.9% IV 250 mL 45 mmol, 15 mL, Route: IVPB, Drug form: INJ, PRN, Dosing Weight 80.455, kg, PRN Abnormal Lab Result, Start date: 08/11/18 20:34:00 CDT, Duration: 30 day, Stop d ate: 09/10/18 20:33:00 CDT, FOR ICU USE ONLY Notes: Infuse over 4 hour. Do not infuse phosphorous concurrently in the same li ne as TPN or IVF that contains calcium. For double lumen central lines, phosphor ous may be infused in a separate lumen from TPN. Start Date: 08/11/18 Stop Date: 08/13/18 Status: Discontinued sodium phosphate + Sodium Chloride 0.9% IV 250 mL 15 mmol, 5 mL, Route: IVPB, Drug form: INJ, PRN, Dosing Weight 80.455, kg, PRN A bnormal Lab Result, Start date: 08/11/18 20:34:00 CDT, Duration: 30 day, Stop da te: 09/10/18 20:33:00 CDT, FOR ICU USE ONLY Notes: Infuse over 4 hour. Do not infuse phosphorous concurrently in the same li ne as TPN or IVF that contains calcium. For double lumen central lines, phosphor ous may be infused in a separate lumen from TPN. Start Date: 08/11/18 Stop Date: 08/13/18 Status: Discontinued Synthroid 75 microgram, 1 tab, Route: PO, Drug form: TAB, Q630AM, Start date: 08/12/18 6:3 0:00 CDT, Duration: 30 day, Stop date: 09/10/18 6:30:00 CDT Start Date: 08/12/18 Stop Date: 08/15/18 Status: Discontinued Tylenol 650 mg, 2 tab, Route: PO, Drug form: TAB, Q4H, Dosing Weight 80.455, kg, PRN Michael n Score 1-3, Start date: 08/14/18 13:09:00 CDT, Duration: 30 day, Stop date: 13:08:00 CDT Notes: Do not exceed 4 gm/day. (Same as: Tylenol) Start Date: 08/14/18 Stop Date: 08/15/18 Status: Discontinued Tylenol 650 mg, 1 supp, Route: DC, Drug form: SUPP, Q6H, Dosing Weight 80.455, kg, PRN F or Temp > 100.4 F, Start date: 08/11/18 23:09:00 CDT, Duration: 30 day, Stop date: 09/10/18 23:08:00 CDT Notes: Max kuylgkultfdux=1174 mg/day (4 gm/day). (Same as: Tylenol) Start Date: 08/11/18 Stop Date: 08/15/18 Status: Discontinued Results BLOOD BANK RESULTS 1 2 3 Most recent to oldest [Reference Range]: O POS *Unknown* (08/11/18 5:31 PM) ABO/Rh Negative (08/11/18 5:31 PM) Antibody Scrn ELECTROLYTES 1 2 3 Most recent to oldest [Reference Range]: 138 mEq/L (08/15/18 4:32 AM) 140 mEq/L (08/14/18 4:15 AM) 143 mEq/L (08/13/18 1:02 AM) Sodium Lvl [135-145 mEq/L] 3.6 mEq/L (08/15/18 4:32 AM) 3.8 mEq/L (08/14/18 4:15 AM) 3.4 mEq/L *LOW* (08/13/18 1:02 AM) Potassium Lvl [3.5-5.1 mEq/L] 106 mEq/L (08/15/18 4:32 AM) 108 mEq/L (08/14/18 4:15 AM) 108 mEq/L (08/13/18 1:02 AM) Chloride Lvl [95-109 mEq/L] 20 mEq/L *LOW* (08/15/18 4:32 AM) 20 mEq/L *LOW* (08/14/18 4:15 AM) 22 mEq/L *LOW* (08/13/18 1:02 AM) CO2 [24-32 mEq/L] 15.6 mEq/L (08/15/18 4:32 AM) 15.8 mEq/L (08/14/18 4:15 AM) 16.4 mEq/L (08/13/18 1:02 AM) AGAP [10.0-20.0 mEq/L] CHEM PANEL 1 2 3 Most recent to oldest [Reference Range]: 0.48 mg/dL *LOW* (08/15/18 4:32 AM) 0.58 mg/dL (08/14/18 4:15 AM) 0.59 mg/dL (08/13/18 1:02 AM) Creatinine Lvl [0.50-1.40 mg/dL] 95 mL/min/1.73m2 1 *NA* (08/15/18 4:32 AM) 90 mL/min/1.73m2 2 *NA* (08/14/18 4:15 AM) 89 mL/min/1.73m2 3 *NA* (08/13/18 1:02 AM) eGFR 11 mg/dL (08/15/18 4:32 AM) 19 mg/dL (08/14/18 4:15 AM) 16 mg/dL (08/13/18 1:02 AM) BUN [7-22 mg/dL] 16 (08/11/18 5:31 PM) B/C Ratio [6-25] 136 mg/dL *HI* (08/15/18 4:32 AM) 137 mg/dL *HI* (08/14/18 4:15 AM) 235 mg/dL *HI* (08/13/18 1:02 AM) Glucose Lvl [70-99 mg/dL] 7.4 g/dL (08/11/18 5:31 PM) Total Protein [6.4-8.4 g/dL] 3.2 g/dL *LOW* (08/11/18 5:31 PM) Albumin Lvl [3.5-5.0 g/dL] 4.2 g/dL (08/11/18 5:31 PM) Globulin [2.7-4.2 g/dL] 0.8 (08/11/18 5:31 PM) A/G Ratio [0.7-1.6] 8.2 mg/dL *LOW* (08/15/18 4:32 AM) 7.9 mg/dL *LOW* (08/15/18 4:32 AM) 8.2 mg/dL *LOW* (08/14/18 4:15 AM) Calcium Lvl [8.5-10.5 mg/dL] 2.9 mg/dL (08/15/18 4:32 AM) 2.5 mg/dL (08/14/18 4:15 AM) 2.1 mg/dL *LOW* (08/13/18 1:02 AM) Phosphorus [2.5-4.5 mg/dL] 2.1 mg/dL (08/15/18 4:32 AM) 2.2 mg/dL (08/14/18 4:15 AM) 2.0 mg/dL (08/13/18 1:02 AM) Magnesium Lvl [1.8-2.4 mg/dL] 25 unit/L (08/11/18 5:31 PM) ALT [0-65 unit/L] 30 unit/L (08/11/18 5:31 PM) AST [0-37 unit/L] 69 unit/L (08/11/18 5:31 PM) Alk Phos [39-136 unit/L] 0.6 mg/dL (08/11/18 5:31 PM) Bili Total [0.2-1.3 mg/dL] 1Result Comment: The eGFR is calculated using the [...] from the National Kidney Disease Education Program ( NKDEP) which additionally recommends that when the eGFR is used in patients with extremes of body mass index for purposes of drug dosing, the eGFR should be mul tiplied by the estimated BMI. 2Result Comment: The eGFR is calculated using the [...] from the National Kidney Disease Education Program ( NKDEP) which additionally recommends that when the eGFR is used in patients with extremes of body mass index for purposes of drug dosing, the eGFR should be mul tiplied by the estimated BMI. 3Result Comment: The eGFR is calculated using the [...] from the National Kidney Disease Education Program ( NKDEP) which additionally recommends that when the eGFR is used in patients with extremes of body mass index for purposes of drug dosing, the eGFR should be mul tiplied by the estimated BMI. CARDIAC ENZYMES 1 2 3 Most recent to oldest [Reference Range]: <0.02 ng/mL (08/15/18 4:32 AM) <0.02 ng/mL (08/14/18 4:15 AM) <0.02 ng/mL (08/13/18 1:02 AM) Troponin-I [0.00-0.40 ng/mL] SPECIAL CHEMISTRY 1 2 3 Most recent to oldest [Reference Range]: 7.9 % *HI* (08/14/18 4:15 AM) Hgb A1C [<=5.6 %] PARATHYROID PROFILE 1 2 3 Most recent to oldest [Reference Range]: 1.02 mMol/L *LOW* (08/14/18 4:15 AM) 1.03 mMol/L *LOW* (08/13/18 1:02 AM) 1.03 mMol/L *LOW* (08/12/18 2:15 AM) Ca Ion WB [1.05-1.25 mMol/L] 1.02 mMol/L *LOW* (08/14/18 4:15 AM) 1.02 mMol/L *LOW* (08/13/18 1:02 AM) 1.03 mMol/L *LOW* (08/12/18 2:15 AM) Ca Norm WB [1.05-1.25 mMol/L] URINE AND STOOL 1 2 3 Most recent to oldest [Reference Range]: Marked *ABN* (08/12/18 2:02 AM) UA Turbidity [Clear] Dark Yellow *NA* (08/12/18 2:02 AM) UA Color [Yellow] 6.0 (08/12/18 2:02 AM) UA pH [5.0-8.0] 1.017 (08/12/18 2:02 AM) UA Spec Grav [<=1.030] 200 mg/dL *ABN* (08/12/18 2:02 AM) UA Glucose [Negative mg/dL] Small *ABN* (08/12/18 2:02 AM) UA Blood [Negative] 60 mg/dL *ABN* (08/12/18 2:02 AM) UA Ketones [Negative mg/dL] >=300 mg/dL *ABN* (08/12/18 2:02 AM) UA Protein [Negative mg/dL] 2.0 mg/dL *HI* (08/12/18 2:02 AM) UA Urobilinogen [0.1-1.0 mg/dL] Negative *NA* (08/12/18 2:02 AM) UA Bili [Negative] Large *ABN* (08/12/18 2:02 AM) UA Leuk Est [Negative] Positive *ABN* (08/12/18 2:02 AM) UA Nitrite [Negative] >182 /HPF *HI* (08/12/18 2:02 AM) UA WBC [0-5 /HPF] 16 /HPF *HI* (08/12/18 2:02 AM) UA RBC [0-2 /HPF] Many /HPF *ABN* (08/12/18 2:02 AM) UA Bacteria [None Seen /HPF] Many /LPF *ABN* (08/12/18 2:02 AM) UA Sq Epi [Few /LPF] Many /LPF *ABN* (08/12/18 2:02 AM) UA Mucus [None Seen /LPF] HEMATOLOGY 1 2 3 Most recent to oldest [Reference Range]: 7.9 K/CMM (08/15/18 4:32 AM) 9.2 K/CMM (08/14/18 4:15 AM) 9.0 K/CMM (08/13/18 1:02 AM) WBC [3.7-10.4 K/CMM] 3.56 M/CMM *LOW* (08/15/18 4:32 AM) 3.52 M/CMM *LOW* (08/14/18 4:15 AM) 3.54 M/CMM *LOW* (08/13/18 1:02 AM) RBC [4.20-5.40 M/CMM] 10.9 g/dL *LOW* (08/15/18 4:32 AM) 10.6 g/dL *LOW* (08/14/18 4:15 AM) 10.8 g/dL *LOW* (08/13/18 1:02 AM) Hgb [12.0-16.0 g/dL] 32.1 % *LOW* (08/15/18 4:32 AM) 32.2 % *LOW* (08/14/18 4:15 AM) 32.3 % *LOW* (08/13/18 1:02 AM) Hct [36.0-48.0 %] 90.2 fL (08/15/18 4:32 AM) 91.3 fL (08/14/18 4:15 AM) 91.2 fL (08/13/18 1:02 AM) MCV [80.0-98.0 fL] 30.6 pg (08/15/18 4:32 AM) 30.2 pg (08/14/18 4:15 AM) 30.6 pg (08/13/18 1:02 AM) MCH [27.0-31.0 pg] 33.9 g/dL (08/15/18 4:32 AM) 33.1 g/dL (08/14/18 4:15 AM) 33.6 g/dL (08/13/18 1:02 AM) MCHC [32.0-36.0 g/dL] 14.1 % (08/15/18 4:32 AM) 14.7 % *HI* (08/14/18 4:15 AM) 14.6 % *HI* (08/13/18 1:02 AM) RDW [11.5-14.5 %] 8.0 fL (08/15/18 4:32 AM) 8.1 fL (08/14/18 4:15 AM) 7.9 fL (08/13/18 1:02 AM) MPV [7.4-10.4 fL] 271 K/CMM (08/15/18 4:32 AM) 234 K/CMM (08/14/18 4:15 AM) 202 K/CMM (08/13/18 1:02 AM) Platelet [133-450 K/CMM] 70.6 % (08/15/18 4:32 AM) 67.2 % (08/14/18 4:15 AM) 75.6 % *HI* (08/13/18 1:02 AM) Segs [45.0-75.0 %] 19.6 % *LOW* (08/15/18 4:32 AM) 23.0 % (08/14/18 4:15 AM) 14.5 % *LOW* (08/13/18 1:02 AM) Lymphocytes [20.0-40.0 %] 7.4 % (08/15/18 4:32 AM) 7.3 % (08/14/18 4:15 AM) 9.4 % (08/13/18 1:02 AM) Monocytes [2.0-12.0 %] 1.8 % (08/15/18 4:32 AM) 1.9 % (08/14/18 4:15 AM) 0.1 % (08/13/18 1:02 AM) Eosinophils [0.0-4.0 %] 0.6 % (08/15/18 4:32 AM) 0.6 % (08/14/18 4:15 AM) 0.4 % (08/13/18 1:02 AM) Basophils [0.0-1.0 %] 5.6 K/CMM (08/15/18 4:32 AM) 6.2 K/CMM (08/14/18 4:15 AM) 6.8 K/CMM (08/13/18 1:02 AM) Neutrophils # [1.5-8.1 K/CMM] 1.5 K/CMM (08/15/18 4:32 AM) 2.1 K/CMM (08/14/18 4:15 AM) 1.3 K/CMM (08/13/18 1:02 AM) Lymphocytes # [1.0-5.5 K/CMM] 0.6 K/CMM (08/15/18 4:32 AM) 0.7 K/CMM (08/14/18 4:15 AM) 0.8 K/CMM (08/13/18 1:02 AM) Monocytes # [0.0-0.8 K/CMM] 0.1 K/CMM (08/15/18 4:32 AM) 0.2 K/CMM (08/14/18 4:15 AM) Eosinophils # [0.0-0.5 K/CMM] 0.1 K/CMM (08/14/18 4:15 AM) 0.1 K/CMM (08/12/18 2:15 AM) Basophils # [0.0-0.2 K/CMM] 15.4 seconds *HI* (08/12/18 2:15 AM) 14.9 seconds *HI* (08/11/18 5:31 PM) PT [12.0-14.7 seconds] 1.21 *HI* (08/12/18 2:15 AM) 1.16 (08/11/18 5:31 PM) INR [0.85-1.17] 31.5 seconds (08/11/18 5:31 PM) PTT [22.9-35.8 seconds] 3.8 minutes *LOW* (08/11/18 5:31 PM) R-time [5.0-10.0 minutes] 0.9 minutes *LOW* (08/11/18 5:31 PM) K-time [1.0-3.0 minutes] 76.3 degrees *HI* (08/11/18 5:31 PM) Angle [53.0-72.0 degrees] 70.9 mm *HI* (08/11/18 5:31 PM) Max Amp [50.0-70.0 mm] 12.2 K d/sc *HI* (08/11/18 5:31 PM) G-value [4.5-11.0 K d/sc] 0.7 % (08/11/18 5:31 PM) Ly30 [0.0-7.5 %] 3.8 *HI* (08/11/18 5:31 PM) Coag Index [-3.0-3.0] Thrombelastograph results show shortened value of R and increased value of Angle Alpha. These findings are suggestive of enzymatic hypercoagulation. CPT:25887 *NA* (08/11/18 5:31 PM) TEG Interp See Note (08/11/18 5:31 PM) TEG Data Microbiology Reports TEST: Culture: Urine STATUS: Auth (Verified) BODY SITE: SOURCE: Urine, Clean Catch COLLECTED DATE/TIME: 08/12/18 2:50 AM FINAL REPORT >100,000 CFU/mL Klebsiella pneumoniae ssp pneumoniae >100,000 CFU/mL Aerococcus urinae ORGANISM:Klebsiella pneumoniae ssp pneumoniae Immunizations Given and Recorded Vaccine Date Status [...]
--- OUTSIDE RECORDS SUMMARY | 2019-08-04 19:10 | XMS REPORT | Summary of Care ---
Author Author BHARATI Neurosurgery [facility] [place] Organization [facility] Neurosurgery [facility] [place] Address Unknown Phone Unavailable Encounter HQ Jessica(BRITTANY) [phone] Date(s): 09/04/18 - 09/04/18 [facility] Neurosurgery [facility] [place] [address] [place] [address]- Discharge Disposition: Home or Self Care Attending Physician: Kareem Josue MD Referring Physician: Jamil Anguiano DO Vital Signs Most recent to 1 oldest [Reference Range]: Height 157.48 cm (09/04/18 2:30 PM) Temperature Oral 97.8 DegF [96.4-99.1 DegF] (09/04/18 2:30 PM) Blood Pressure 122/88 mmHg [90-140/60-90 mmHg] (09/04/18 2:30 PM) Peripheral Pulse 98 bpm Rate [60-100 bpm] (09/04/18 2:30 PM) Weight 79.545 kg (09/04/18 2:30 PM) Body Mass Index 32.07 m2 (09/04/18 2:30 PM) Problem List Condition Effective Dates Status Health Status Informant Anxiety(Confirmed) Active Chest Active pain(Confirmed) Depression(Confirmed Active ) Diabetes Active mellitus(Confirmed) DM II [Diabetes Resolved mellitus type II](Confirmed) HTN(Confirmed) Resolved Hyperlipidemia(Confi Active rmed) Hypertension(Confirm Active ed) Hypothyroid(Confirme Resolved d) Osteoarthritis(Confi Active rmed) Pain(Confirmed) Active Thyroidectomy(Confir Active med) Allergies, Adverse Reactions, Alerts Substance Reaction Severity Status Levaquin Active NKFA Active Medications No Known Medications Results No data available for this section [...]
--- OUTSIDE RECORDS SUMMARY | 2019-08-04 19:10 | XMS REPORT | Summary of Care ---
Author Author [facility] Neurosurgery [facility] [place] Organization [facility] Neurosurgery [facility] [place] Address Unknown Phone Unavailable Encounter HQ Delmir_johanna(FIN) [phone] Date(s): 08/22/18 - 08/23/18 [facility]surgery [facility] [place] [address] [place] [address]- Vital Signs No data available for this [...]
--- OUTSIDE RECORDS SUMMARY | 2019-08-04 19:10 | XMS REPORT | CCD ---
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 Name Role Phone Ana Alejo CP Allergies, Adverse Reactions, Alerts Substance Reaction Status NKDA Active NKFA Active Problem List Condition Effective Dates Status Anxiety Active Chest pain Active Depression Active Diabetes mellitus Active Hyperlipidemia Active Hypertension Active Osteoarthritis Active Pain Active Thyroidectomy Active Medications Medication Instructions Start Date End Date Status bacitracin topical 1 appl, TOP, QID, 30 gm, 07/12/2012 Ordered 500 units/g ointment Substitution Allowed, OINT ketorolac 15 mg, 0.5 mL, Route: IM, Drug 07/12/2012 07/12/2012 Completed form: INJ, ONCE, Priority: STAT, Start date: 07/12/12 8:21:00, Stop date: 07/12/12 8:21:00 Pepcid 20 mg oral 20 mg, 1 tab, PO, BID, 20 tab, 07/12/2012 Ordered tablet Substitution Allowed naproxen 250 mg oral 250 mg, 1 tab, PO, BID, PRN, 20 07/12/2012 Ordered tablet tab, Pain, Substitution Allowed, TAB lidocaine 1% 1 ml, Route: SUB-Q, Drug Form: INJ, 07/12/2012 07/12/2012 Ordered ONCE, STAT, Start date: 07/12/12 8:20:00, Stop date: 07/12/12 8:20:00 morphine Sulfate 4 mg, Route: IM, ONCE, Priority: 07/12/2012 07/12/2012 Completed STAT, Start date: 07/12/12 7:18:00, Stop date: 07/12/12 7:18:00 tetanus-diphtheria 0.5 ml, Route: IM, ONCE, Start 07/12/2012 07/12/2012 Completed toxoids date: 07/12/12 7:18:00, Stop date: 07/12/12 7:18:00 ondansetron 4 mg, Route: IM, ONCE, Priority: 07/12/2012 07/12/2012 Completed STAT, Start date: 07/12/12 7:18:00, Stop date: 07/12/12 7:18:00 pneumococcal 0.5 ml, Route: IM, Drug Form: INJ, 07/04/2011 07/06/2011 Completed 23-valent vaccine ONCALL, Start date: 07/04/11 18:10:51, Duration: 1 doses or times Immunizations Vaccine Date Status pneumococcal 23-valent vaccine 07/06/2011 Auth (Verified) tetanus-diphtheria toxoids 07/12/2012 Auth (Verified) Vital Signs Most recent to oldest [Reference Range]: 1 Height 162.56 cm (07/12/2012 06:45:00) Weight 84.545 kg (07/12/2012 06:45:00)
--- OUTSIDE RECORDS SUMMARY | 2019-08-04 19:10 | XMS REPORT | Summary of Care ---
Author Author BHARATI Neurosurgery [facility] [place] Organization [facility] Neurosurgery [facility] Address Unknown Phone Unavailable Encounter HQ Delmir_johanna(FIN) [phone] Date(s): 11/06/18 - 11/07/18 [facility] Neurosurgery [facility] [address] [place] [address]- Vital Signs No data available for this [...]
--- OUTSIDE RECORDS SUMMARY | 2019-08-04 19:10 | XMS REPORT | Summary of Care ---
Author Author [facility] [place] Organization [facility] [place] Address Unknown Phone Unavailable Encounter HQ Agusto_johanna(FIN) [phone] Date(s): 04/25/18 - 04/25/18 [facility] [place] [address] [phone] Discharge Disposition: Home or Self Care Attending Physician: Nusrat Minor MD Vital Signs No data available for this section Problem List Condition Effective Dates Status Health Status Informant Anxiety(Confirmed) Active Chest Active pain(Confirmed) Depression(Confirmed Active ) Diabetes Active mellitus(Confirmed) DM II [Diabetes Resolved mellitus type II](Confirmed) HTN(Confirmed) Resolved Hyperlipidemia(Confi Active rmed) Hypertension(Confirm Active ed) Hypothyroid(Confirme Resolved d) Osteoarthritis(Confi Active rmed) Pain(Confirmed) Active Thyroidectomy(Confir Active med) Allergies, Adverse Reactions, Alerts Substance Reaction Severity Status NKFA Active NKDA Active Medications No data available for this section Results No data available for this section Immunizations Given and Recorded Vaccine Date Status Refusal Reason tetanus-diphtheria toxoids 07/12/12 Given pneumococcal 23-valent vaccine 07/06/11 Given Procedures Procedure Date Related Diagnosis Body Site Status Total replacement of right knee joint 05/06/12 Completed Appendectomy Completed Cholecystectomy Completed Social History Social History Type Response Assessment and Plan No data available for this section
--- OUTSIDE RECORDS SUMMARY | 2019-08-04 19:10 | XMS REPORT | CCD ---
Author Author Auto Generated Organization [facility] Address Unknown Phone Unavailable Care Team Providers Care Chief Security Officer Name Role Phone Sanju Paz CP Allergies, Adverse Reactions, Alerts Substance Reaction Status NKDA Active NKFA Active Problem List Condition Effective Dates Status Anxiety Active Chest pain Active Depression Active Diabetes mellitus Active Hyperlipidemia Active Hypertension Active Osteoarthritis Active Pain Active Thyroidectomy Active Medications Medication Instructions Start Date End Date Status tetanus-diphtheria 0.5 ml, Route: IM, ONCE, Start [...] oldest [Reference Range]: 1 Height 162.56 cm (07/13/2012 13:03:00) Weight 85.909 kg (07/13/2012 13:03:00)
--- OUTSIDE RECORDS SUMMARY | 2019-08-04 19:10 | XMS REPORT | CCD ---
Author Author Auto Generated Organization [facility] Address Unknown Phone Unavailable Care Team Providers Care Real Estate Salesperson Name Role Phone Doni Giang CP Allergies, Adverse Reactions, Alerts Substance Reaction Status NKDA Active NKFA Active Problem List Condition Effective Dates Status Anxiety Active Chest pain Active Depression Active Diabetes mellitus Active DM II [Diabetes mellitus type II] Resolved HTN Resolved Hyperlipidemia Active Hypertension Active Hypothyroid Resolved Osteoarthritis Active Pain Active Thyroidectomy Active Medications Medication Instructions Start Date End Date Status Cymbalta 30 mg, PO, Daily, Substitution 08/25/2013 Ordered Allowed, TAB metFORmin 500 mg 500 mg, 1 tab, PO, BID, 30 tab, 08/25/2013 Ordered oral tablet, Substitution Allowed extended release ketorolac 30 mg, Route: IV, Drug form: INJ, 08/25/2013 08/25/2013 Completed ONCE, Dosing Weight 81.364, kg, Start date: 08/25/13 13:45:00, Stop date: 08/25/13 13:45:00 Protonix 40 mg, 1 tab, Route: PO, Drug form: 08/26/2013 08/26/2013 Canceled ECTAB, Before Dinner, Dosing Weight 81.364, kg, Start date: 08/26/13 16:30:00, Duration: 30 day, Stop date: 09/24/13 16:30:00 oxybutynin 15 mg, 3 tab, Route: PO, Drug form: 08/25/2013 08/26/2013 Discontinued ERTAB, Bedtime, Dosing Weight 81.364, kg, Start date: 08/25/13 21:00:00, Duration: 30 day, Stop date: 09/23/13 21:00:00 metFORmin 500 mg 500 mg, 1 tab, Route: PO, Drug 08/26/2013 08/26/2013 Discontinued oral tablet, form: ERTAB, BID, Dosing Weight extended release 81.364, kg, Start date: 08/26/13 9:00:00, Duration: 30 day, Stop date: 09/24/13 17:00:00 Saline Flush 0.9% 5 mL, Route: IVP, Drug Form: INJ, 08/25/2013 08/26/2013 Discontinued Dosing Weight 81.364, kg, Q8H, PRN Line Flush, Start date: 08/25/13 11:32:00, Duration: 30 day, Stop date: 09/24/13 11:31:00, Administer at least once every 8 hours Administer at least once every 8 hours meloxicam 15 mg, 2 tab, Route: PO, Drug form: 08/26/2013 08/26/2013 Discontinued TAB, Daily, Dosing Weight 81.364, kg, Start date: 08/26/13 9:00:00, Duration: 30 day, Stop date: 09/24/13 9:00:00 lisinopril 20 mg, 1 tab, Route: PO, Drug form: 08/26/2013 08/26/2013 Discontinued TAB, Daily, Dosing Weight 81.364, kg, Start date: 08/26/13 9:00:00, Duration: 30 day, Stop date: 09/24/13 9:00:00 hydrochlorothiazide 25 mg, 1 tab, Route: PO, Drug form: 08/26/2013 08/26/2013 Discontinued TAB, Daily, Dosing Weight 81.364, kg, Start date: 08/26/13 9:00:00, Duration: 30 day, Stop date: 09/24/13 9:00:00 glimepiride 2 mg, 1 tab, Route: PO, Drug form: 08/26/2013 08/26/2013 Discontinued TAB, Daily, Dosing Weight 81.364, kg, Start date: 08/26/13 9:00:00, Duration: 30 day, Stop date: 09/24/13 9:00:00 gabapentin 100 mg, 1 cap, Route: PO, Drug 08/26/2013 08/26/2013 Discontinued form: CAP, TID, Dosing Weight 81.364, kg, Start date: 08/26/13 9:00:00, Duration: 30 day, Stop date: 09/24/13 17:00:00 insulin glargine 40 unit, 0.4 mL, Route: SUB-Q, Drug 08/25/2013 08/26/2013 Discontinued form: INJ, Bedtime, Dosing Weight 81.364, kg, Start date: 08/25/13 21:00:00, Duration: 30 day, Stop date: 09/23/13 21:00:00 Cymbalta 30 mg, 1 cap, Route: PO, Drug form: 08/26/2013 08/26/2013 Discontinued DRC, Daily, Dosing Weight 81.364, kg, Start date: 08/26/13 9:00:00, Duration: 30 day, Stop date: 09/24/13 9:00:00 amLODipine 5 mg, 1 tab, Route: PO, Drug form: 08/26/2013 08/26/2013 Discontinued TAB, Daily, Dosing Weight 81.364, kg, Start date: 08/26/13 9:00:00, Duration: 30 day, Stop date: 09/24/13 9:00:00 atorvastatin 20 mg, 1 tab, Route: PO, Drug form: 08/26/2013 08/26/2013 Discontinued TAB, Daily, Dosing Weight 81.364, kg, Start date: 08/26/13 9:00:00, Duration: 30 day, Stop date: 09/24/13 9:00:00 atorvastatin 20 mg 20 mg, 1 tab, PO, Daily, 30 tab, 08/25/2013 Ordered oral tablet Substitution Allowed, TAB Januvia 100 mg oral 100 mg, 1 tab, PO, Daily, 30 tab, 08/25/2013 Ordered tablet Substitution Allowed, TAB [place] 5/325 oral 1 tab, PO, Q4-6H, PRN, 30 tab, as 08/25/2013 Ordered tablet needed for pain, Substitution Allowed, Maintenance meloxicam 15 mg oral 15 mg, 1 tab, PO, Daily, 30 tab, 08/25/2013 Ordered tablet Substitution Allowed, TAB Saline Flush 0.9% 5 ml, Route: IVP, Drug Form: INJ, 08/25/2013 08/26/2013 Discontinued Dosing Weight 81.364, kg, Q12H, Start date: 08/25/13 21:00:00, Duration: 30 day, Stop date: 09/24/13 9:00:00 Saline Flush 0.9% 5 ml, Route: IVP, Drug Form: INJ, 08/25/2013 08/25/2013 Deleted Dosing Weight 81.364, kg, PRN, PRN Line Flush, Start date: 08/25/13 14:23:00, Duration: 30 day, Stop date: 09/24/13 14:22:00 aspirin 325 mg 325 mg, 1 tab, Route: PO, Drug 08/26/2013 08/26/2013 Discontinued tablet, enteric form: ECTAB, Daily, Dosing Weight coated 81.364, kg, Start date: 08/26/13 9:00:00, Duration: 30 day, Stop date: 09/24/13 9:00:00 temazepam 15 mg, 1 cap, Route: PO, Drug form: 08/25/2013 08/26/2013 Discontinued CAP, Bedtime, Dosing Weight 81.364, kg, PRN Insomnia, Start date: 08/25/13 14:23:00, Duration: 30 day, Stop date: 09/24/13 14:22:00 ondansetron 4 mg, 1 tab, Route: PO, Drug form: 08/25/2013 08/26/2013 Discontinued TAB, Q8H, Dosing Weight 81.364, kg, PRN Nausea & Vomiting, Start date: 08/25/13 14:23:00, Duration: 30 day, Stop date: 09/24/13 14:22:00 acetaminophen 650 mg, 2 tab, Route: PO, Drug 08/25/2013 08/26/2013 Discontinued form: TAB, Q4H, Dosing Weight 81.364, kg, PRN Headache 1-5, Start date: 08/25/13 14:23:00, Duration: 30 day, Stop date: 09/24/13 14:22:00 morphine Sulfate 2 mg, 1 mL, Route: IVP, Drug form: 08/25/2013 08/25/2013 Discontinued INJ, Q15Min, Dosing Weight 81.364, kg, PRN Chest Pain, Start date: 08/25/13 14:23:00, Duration: 2 doses or times, Stop date: Limited # of times nitroglycerin SL Tab 0.4 mg, 1 tab, Route: SL, Drug 08/25/2013 08/26/2013 Discontinued form: TAB, Q5Min, Dosing Weight 81.364, kg, PRN Chest Pain, Start date: 08/25/13 14:23:00, Duration: 3 doses or times, Stop date: Limited # of times glimepiride 2 mg 2 mg, 1 tab, PO, Daily, 08/25/2013 Ordered oral tablet Substitution Allowed, TAB tetanus-diphtheria 0.5 ml, Route: IM, ONCE, Start 07/12/2012 07/12/2012 Completed toxoids date: 07/12/12 7:18:00, Stop date: 07/12/12 7:18:00 oxybutynin 15 mg 15 mg, 1 tab, PO, Bedtime, 30 tab, 08/25/2013 Ordered oral tablet, Substitution Allowed, ERTAB extended release pneumococcal 0.5 ml, Route: IM, Drug Form: INJ, 07/04/2011 07/06/2011 Completed 23-valent vaccine ONCALL, Start date: 07/04/11 18:10:51, Duration: 1 doses or times Zofran 4 mg, Route: IVP, ONCE, Dosing 08/25/2013 08/25/2013 Completed Weight 81.364, kg, Priority: STAT, Start date: 08/25/13 11:38:00, Stop date: 08/25/13 11:38:00 morphine Sulfate 4 mg, Route: IVP, Drug form: INJ, 08/25/2013 08/25/2013 Completed ONCE, Dosing Weight 81.364, kg, Priority: STAT, Start date: 08/25/13 11:38:00, Stop date: 08/25/13 11:38:00 aspirin 325 mg, Route: PO, Drug form: TAB, 08/25/2013 08/25/2013 Completed ONCE, Dosing Weight 81.364, kg, Priority: STAT, Start date: 08/25/13 11:38:00, Stop date: 08/25/13 11:38:00 levothyroxine 200 200 microgram, 1 tab, PO, Daily, 30 08/26/2013 Ordered mcg (0.2 mg) oral tab, Substitution Allowed, TAB tablet enoxaparin 40 mg, 0.4 mL, Route: SUB-Q, Drug 08/25/2013 08/26/2013 Discontinued form: INJ, [id number], Dosing Weight 81.364, kg, Start date: 08/25/13 18:00:00, Duration: 30 day, Stop date: 09/23/13 18:00:00 Januvia 100 mg, 1 tab, Route: PO, Drug 08/26/2013 08/26/2013 Discontinued form: TAB, Daily, Dosing Weight 81.364, kg, Start date: 08/26/13 9:00:00, Duration: 30 day, Stop date: 09/24/13 9:00:00 Immunizations Vaccine Date Status pneumococcal 23-valent vaccine 07/06/2011 Auth (Verified) tetanus-diphtheria toxoids 07/12/2012 Auth (Verified) Vital Signs Most recent to oldest [Reference Range]: 1 2 3 Height 152.4 cm (08/25/2013 11:23:00) Current Weight 81 kg (08/26/2013 03:00:00) Temperature Oral [96.4-99.1 DegF] 98.5 DegF (08/26/2013 08:00:00) 98.1 DegF (08/26/2013 04:00:00) 98.3 DegF (08/26/2013 00:00:00) Systolic Blood Pressure [90-140 mmHg] 117 mmHg (08/26/2013 08:00:00) 100 mmHg (08/26/2013 04:00:00) 125 mmHg (08/26/2013 00:00:00) Diastolic Blood Pressure [60-90 mmHg] 63 mmHg (08/26/2013 08:00:00) 51 mmHg *LOW* (08/26/2013 04:00:00) 62 mmHg (08/26/2013 00:00:00) Respiratory Rate [14-20 BRMIN] 16 BRMIN (08/26/2013 08:00:00) 20 BRMIN (08/26/2013 04:00:00) 20 BRMIN (08/26/2013 00:00:00) Peripheral Pulse Rate [60-100 bpm] 69 bpm (08/26/2013 08:00:00) 65 bpm (08/26/2013 04:00:00) 69 bpm (08/26/2013 00:00:00) Weight 81.364 kg (08/25/2013 11:23:00) Results BEDSIDE GLUCOSE TESTING Most recent to oldest [Reference Range]: 1 2 3 Gluc POC [70-99 mg/dL] 174 mg/dL 1 *HI* (08/26/2013 05:13:00) 193 mg/dL 2 *HI* (08/25/2013 20:50:00) 130 mg/dL 3 *HI* (08/25/2013 15:10:00) Gluc POC Comment 1 Notify RN/MD *NA* (08/26/2013 05:13:00) Notify RN/MD *NA* (08/25/2013 20:50:00) Notify RN/MD *NA* (08/25/2013 15:10:00) 1Interpretive Data: Upper Reportable Limit: 200 mg/dL. 2Interpretive Data: Upper Reportable Limit: 200 mg/dL. 3Interpretive Data: Upper Reportable Limit: 200 mg/dL. CHEMISTRY Most recent to oldest [Reference Range]: 1 2 3 Sodium Lvl [135-145 mEq/L] 142 mEq/L (08/25/2013 11:40:00) Potassium Lvl [3.5-5.1 mEq/L] 3.5 mEq/L (08/25/2013 11:40:00) Chloride Lvl [95-109 mEq/L] 105 mEq/L (08/25/2013 11:40:00) CO2 [24-32 mEq/L] 25 mEq/L (08/25/2013 11:40:00) AGAP [10.0-20.0 mEq/L] 15.5 mEq/L (08/25/2013 11:40:00) Creatinine Lvl [0.5-1.4 mg/dL] 0.8 mg/dL (08/26/2013 00:10:00) 0.5 mg/dL (08/25/2013 11:40:00) eGFR 74 mL/min/1.73m2 4 *NA* (08/26/2013 00:10:00) 98 mL/min/1.73m2 5 *NA* (08/25/2013 11:40:00) BUN [7-22 mg/dL] 19 mg/dL (08/25/2013 11:40:00) B/C Ratio [6-25] 38 *HI* (08/25/2013 11:40:00) Glucose Lvl [70-99 mg/dL] 171 mg/dL 6 *HI* (08/25/2013 11:40:00) Total Protein [6.4-8.4 g/dL] 7.4 g/dL (08/25/2013 11:40:00) Albumin Lvl [3.5-5.0 g/dL] 4.0 g/dL (08/25/2013 11:40:00) Globulin [2.0-4.0 g/dL] 3.4 g/dL (08/25/2013 11:40:00) A/G Ratio [0.7-1.6] 1.2 (08/25/2013 11:40:00) Calcium Lvl [8.5-10.5 mg/dL] 8.7 mg/dL (08/25/2013 11:40:00) ALT [0-65 unit/L] 34 unit/L (08/25/2013 11:40:00) AST [0-37 unit/L] 24 unit/L (08/25/2013 11:40:00) Alk Phos [39-136 unit/L] 90 unit/L (08/25/2013 11:40:00) Bili Total [0.2-1.3 mg/dL] 0.3 mg/dL (08/25/2013 11:40:00) Total CK [12-191 unit/L] 98 unit/L 7 (08/26/2013 00:10:00) 201 unit/L *HI* (08/25/2013 18:00:00) 145 unit/L (08/25/2013 11:40:00) CK MB [0.5-3.6 ng/mL] 1.7 ng/mL (08/26/2013 00:10:00) 3.1 ng/mL (08/25/2013 18:00:00) 2.9 ng/mL (08/25/2013 11:40:00) CK MB Index [0.0-2.5] 1.7 (08/26/2013 00:10:00) 1.5 (08/25/2013 18:00:00) 2.0 (08/25/2013 11:40:00) Troponin-I [0.00-0.40 ng/mL] 0.02 ng/mL (08/26/2013 00:10:00) 0.03 ng/mL (08/25/2013 18:00:00) 0.03 ng/mL (08/25/2013 11:40:00) BNP [<=100 pg/mL] 39 pg/mL 8 (08/25/2013 11:40:00) 4Result Comment: The eGFR is calculated using the [...] be mul tiplied by the estimated BMI. 5Result Comment: The eGFR is calculated using the [...] be mul tiplied by the estimated BMI. 6Interpretive Data: Adult reference range values reflect the clinical guidelines of the [place] [employer]. 7Result Comment: reviewed 08/26/2013 01:47 gr 8Interpretive Data: Elevated results are in line with increasing severity of congestive heart failure. Minor elevations between 100 and 300 may be seen with Myocardial Ischemia, Sodium retaining drugs, and compensated/treated heart failure. HEMATOLOGY Most recent to oldest [Reference Range]: 1 2 3 WBC [3.7-10.4 K/CMM] 8.4 K/CMM (08/25/2013 11:40:00) RBC [4.20-5.40 M/CMM] 4.18 M/CMM *LOW* (08/25/2013 11:40:00) Hgb [12.0-16.0 g/dL] 12.8 g/dL (08/25/2013 11:40:00) Hct [36.0-48.0 %] 36.9 % (08/25/2013 11:40:00) MCV [81.0-99.0 fL] 88.4 fL (08/25/2013 11:40:00) MCH [27.0-31.0 pg] 30.6 pg (08/25/2013 11:40:00) MCHC [32.0-36.0 g/dL] 34.6 g/dL (08/25/2013 11:40:00) RDW [11.5-14.5 %] 12.6 % (08/25/2013 11:40:00) Platelet [133-450 K/CMM] 163 K/CMM (08/26/2013 00:10:00) 182 K/CMM (08/25/2013 11:40:00) MPV [7.4-10.4 fL] 8.1 fL (08/25/2013 11:40:00) Segs [45.0-75.0 %] 65.9 % (08/25/2013 11:40:00) Lymphocytes [20.0-40.0 %] 23.9 % (08/25/2013 11:40:00) Monocytes [2.0-12.0 %] 7.8 % (08/25/2013 11:40:00) Eosinophils [0.0-4.0 %] 2.1 % (08/25/2013 11:40:00) Basophils [0.0-1.0 %] 0.3 % (08/25/2013 11:40:00) Segs-Bands # [1.5-8.1 K/CMM] 5.5 K/CMM (08/25/2013 11:40:00) Lymphocytes # [1.0-5.5 K/CMM] 2.0 K/CMM (08/25/2013 11:40:00) Monocytes # [0.0-0.8 K/CMM] 0.7 K/CMM (08/25/2013 11:40:00) Eosinophils # [0.0-0.5 K/CMM] 0.2 K/CMM (08/25/2013 11:40:00) Basophils # [0.0-0.2 K/CMM] 0.0 K/CMM (08/25/2013 11:40:00) PT [12.0-14.7 seconds] 13.1 seconds (08/25/2013 11:40:00) INR [0.85-1.17] 1.00 9 (08/25/2013 11:40:00) PTT [22.9-35.8 seconds] 36.0 seconds 10 *HI* (08/26/2013 00:10:00) 31.7 seconds 11 (08/25/2013 11:40:00) 9Interpretive Data: RECOMMENDED RANGES FOR PROTIME INR: 2.0-3.0 for most medical and surgical thromboembolic states. 2.5-3.5 for artificial heart valves and recurrent embolism. INR SHOULD BE USED ONLY FOR PATIENTS ON STABLE ANTICOAGULANT THERAPY. 10Interpretive Data: Heparin Therapeutic Range: 57 - 92 Seconds 11Interpretive Data: Heparin Therapeutic Range: 57 - 92 Seconds Procedures Procedures Date Related Diagnosis Appendectomy Cholecystectomy Total replacement of right knee joint 05/06/2012 00:00:00
--- OUTSIDE RECORDS SUMMARY | 2019-08-04 19:10 | XMS REPORT | CCD ---
Author Author Auto Generated Organization [facility] Address Unknown Phone Unavailable Care Team Providers [facility] [employer] Senior Manager Name Role Phone Joaquin Isaacs CP Sterling Sylvester RP Allergies, Adverse Reactions, Alerts Substance Reaction Status NKDA Active NKFA Active Problem List Condition Effective Dates Status Anxiety Active Chest pain Active Depression Active Diabetes mellitus Active Hyperlipidemia Active Hypertension Active Osteoarthritis Active Pain Active Thyroidectomy Active Medications Medication Instructions Start Date End Date Status 1/2NS 1,000 mL 1,000 mL, Rate: 40 ml/hr, Infuse 05/12/2012 05/14/2012 Discontinued over: 25 hr, Route: IV, Dosing Weight 85.455 kg, Total Volume: 1,000, Start date: 05/12/12 12:19:00, Duration: 30 day, Stop date: 06/11/12 12:18:00 enoxaparin 30 mg/0.3 30 mg, 0.3 mL, SUB-Q, [id number], 14 05/16/2012 Ordered mL subcutaneous mL, Substitution Allowed, Give solution first dose 12 hours after surgery, SOLN Give first dose 12 hours after surgery Al hydroxide/Mg 30 mL, Route: PO, Drug Form: SUSP, 05/12/2012 05/16/2012 Discontinued hydroxide/simethicon Q4H, PRN Indigestion, Start date: e 05/12/12 19:40:00, Duration: 30 day, Stop date: 06/11/12 19:39:00 diphenhydrAMINE 25 mg, 1 cap, Route: PO, Drug form: 05/13/2012 05/16/2012 Discontinued CAP, ONCALL, Premed Blood Products, Priority: Routine, Start date: 05/13/12 20:00:00, Duration: 30 day, Stop date: 06/12/12 19:59:00 acetaminophen 650 mg, 2 tab, Route: PO, Drug 05/13/2012 05/16/2012 Discontinued form: TAB, ONCALL, Premed Blood Products. Not to exceed 4grams/24hrs., Priority: Routine, Start date: 05/13/12 20:00:00, Duration: 30 day, Stop date: 06/12/12 19:59:00 furosemide 20 mg, 2 mL, Route: IVP, Drug form: 05/13/2012 05/16/2012 Discontinued INJ, ONCALL, Administer after first unit of Blood., Priority: Routine, Start date: 05/13/12 20:00:00, Duration: 30 day, Stop date: 06/12/12 19:59:00 simvastatin 40 mg, 1 tab, Route: PO, Drug form: 05/12/2012 05/16/2012 Discontinued TAB, Bedtime, Start date: 05/12/12 21:00:00, Duration: 30 day, Stop date: 06/10/12 21:00:00 paroxetine 10 mg, 1 tab, Route: PO, Drug form: 05/13/2012 05/16/2012 Discontinued TAB, Daily, Start date: 05/13/12 9:00:00, Duration: 30 day, Stop date: 06/11/12 9:00:00 Protonix 40 mg, 1 tab, Route: PO, Drug form: 05/13/2012 05/16/2012 Discontinued ECTAB, Daily, Start date: 05/13/12 9:00:00, Duration: 30 day, Stop date: 06/11/12 9:00:00 lisinopril 20 mg, 1 tab, Route: PO, Drug form: 05/13/2012 05/16/2012 Discontinued TAB, Daily, Start date: 05/13/12 9:00:00, Duration: 30 day, Stop date: 06/11/12 9:00:00 metFORmin 1,000 mg, 2 tab, Route: PO, Drug 05/13/2012 05/16/2012 Discontinued form: TAB, BID, Start date: 05/13/12 9:00:00, Duration: 30 day, Stop date: 06/11/12 17:00:00 levothyroxine 200 microgram, Route: PO, Drug 05/13/2012 05/16/2012 Discontinued form: TAB, Daily, Start date: 05/13/12 9:00:00, Duration: 30 day, Stop date: 06/11/12 9:00:00 insulin glargine Route: SUB-Q, Drug form: INJ, 05/12/2012 05/16/2012 Discontinued Bedtime, Start date: 05/12/12 21:00:00, Duration: 30 day, Stop date: 06/10/12 21:00:00 hydrochlorothiazide 25 mg, 1 tab, Route: PO, Drug form: 05/13/2012 05/16/2012 Discontinued TAB, Daily, Start date: 05/13/12 9:00:00, Duration: 30 day, Stop date: 06/11/12 9:00:00 glimepiride 4 mg, 2 tab, Route: PO, Drug form: 05/13/2012 05/15/2012 Discontinued TAB, BID, Start date: 05/13/12 9:00:00, Duration: 30 day, Stop date: 06/11/12 17:00:00 glimepiride 2 mg, 1 tab, Route: PO, Drug form: 05/17/2012 05/16/2012 Canceled TAB, BID, Start date: 05/17/12 9:00:00, Duration: 30 day, Stop date: 06/15/12 17:00:00 ondansetron 4 mg, 2 mL, Route: IVP, Drug form: 05/12/2012 05/14/2012 Discontinued INJ, ONCE, PRN Nausea & Vomiting, Start date: 05/12/12 13:47:00 hydromorphone 0.5 mg, 0.25 mL, Route: IVP, Drug 05/12/2012 05/14/2012 Discontinued form: INJ, Q5Min, PRN Pain Score 4-6, Start date: 05/12/12 13:47:00, Duration: 5 doses or times, Stop date: Limited # of times flumazenil 0.2 mg, 2 mL, Route: IVP, Drug 05/12/2012 05/14/2012 Discontinued form: INJ, PRN, PRN Benzodiazepine Reversal, Initial dose, Start date: 05/12/12 13:47:00, Duration: 30 day, Stop date: 06/11/12 13:46:00 naloxone 0.04 mg, 0.1 mL, Route: IVP, Drug 05/12/2012 05/14/2012 Discontinued form: INJ, Q2MIN, PRN Narcotic Reversal, Start date: 05/12/12 13:47:00, Duration: 8 doses or times, Stop date: Limited # of times morphine Sulfate 2 mg, 1 mL, Route: IVP, Drug form: 05/12/2012 05/14/2012 Discontinued INJ, Q5Min, PRN Pain Score 4-6, Start date: 05/12/12 13:47:00, Duration: 8 doses or times, Stop date: Limited # of times gabapentin 100 mg, 1 cap, Route: PO, Drug 05/13/2012 05/16/2012 Discontinued form: CAP, TID, Start date: 05/13/12 9:00:00, Duration: 30 day, Stop date: 06/11/12 17:00:00 Sodium Chloride 0.9% 1,000 mL, Rate: 50 ml/hr, Infuse 05/12/2012 05/14/2012 Discontinued IV 1,000 mL over: 20 hr, Route: IV, Dosing Weight 85.455 kg, Total Volume: 1,000, Start date: 05/12/12 13:47:00, Duration: 30 day, Stop date: 06/11/12 13:46:00 lidocaine 1% 0.2 mL, Route: INTRADERM, Drug 05/12/2012 05/14/2012 Discontinued Form: INJ, ONCALL, Start date: 05/12/12 14:00:00, Duration: 1 doses or times Celebrex 200 mg, 1 cap, Route: PO, Drug 05/13/2012 05/16/2012 Discontinued form: CAP, Daily, Start date: 05/13/12 9:00:00, Duration: 30 day, Stop date: 06/11/12 9:00:00 Lactated Ringers 1,000 mL, Rate: 25 ml/hr, Infuse 05/12/2012 05/14/2012 Discontinued Injection IV 1,000 over: 40 hr, Route: IV, Dosing mL Weight 85.455 kg, Total Volume: 1,000, Start date: 05/12/12 13:47:00, Duration: 30 day, Stop date: 06/11/12 13:46:00 amLODipine 5 mg, 1 tab, Route: PO, Drug form: 05/13/2012 05/16/2012 Discontinued TAB, Daily, Start date: 05/13/12 9:00:00, Duration: 30 day, Stop date: 06/11/12 9:00:00 morphine Sulfate 4 mg, 1 mL, Route: IVP, Drug form: 05/12/2012 05/16/2012 Discontinued INJ, Q4H, PRN Pain, q5mins times 3 doses in pacu only, Start date: 05/12/12 13:46:00, Duration: 30 day, Stop date: 06/11/12 13:45:00 ondansetron 4 mg, 2 mL, Route: IVP, Drug form: 05/12/2012 05/16/2012 Discontinued INJ, ONCE, PRN Nausea & Vomiting, Start date: 05/12/12 13:46:00, Duration: 1 doses or times, Stop date: Limited # of times acetaminophen-oxycod 2 tab, Route: PO, Drug Form: TAB, 05/12/2012 05/16/2012 Discontinued one 325 mg-5 mg oral Q4H, PRN Pain Score 7-10, Start tablet date: 05/12/12 13:46:00, Duration: 30 day, Stop date: 06/11/12 13:45:00 acetaminophen-oxycod 1 tab, Route: PO, Drug Form: TAB, 05/12/2012 05/16/2012 Discontinued one 325 mg-5 mg oral Q4H, PRN Pain Score 4-6, Start tablet date: 05/12/12 13:46:00, Duration: 30 day, Stop date: 06/11/12 13:45:00 naloxone 0.04 mg, 0.1 mL, Route: IVP, Drug 05/12/2012 05/16/2012 Discontinued form: INJ, Q2MIN, PRN Narcotic Reversal, Start date: 05/12/12 13:46:00, Duration: 30 day, Stop date: 06/11/12 13:45:00 ropivacaine 0.2% in Dosing: Per Nerve Block Dosing 05/12/2012 05/16/2012 Discontinued NS - site 1 800 mg Order, Route: NERVE BLOCK, Start date: 05/12/12 13:46:00 400 mL, Drug Form: INJ, Duration: 30 day, Stop date: 06/11/12 13:45:00, 800 mg Bactroban 1 appl, Route: TOP, Daily, Drug 05/16/2012 05/16/2012 Discontinued form: OINT, Start date: 05/16/12 11:15:00, Duration: 30 day, Stop date: 06/15/12 9:00:00 Lantus Solostar Pen 14 units, SUB-Q, Bedtime, 05/08/2012 Ordered 100 units/mL Substitution Allowed subcutaneous solution glimepiride 2 mg 2 mg, 1 tab, PO, BID, 60 tab, 05/16/2012 Ordered oral tablet Substitution Allowed, TAB ketorolac 30 mg, 1 mL, Route: IM, Drug form: 05/12/2012 05/13/2012 Completed INJ, Q6H, Start date: 05/12/12 18:00:00, Duration: 1 day, Stop date: 05/13/12 12:00:00 naloxone 0.04 mg, 0.1 mL, Route: IVP, Drug 05/12/2012 05/14/2012 Discontinued form: INJ, Q2MIN, PRN Narcotic Reversal, Start date: 05/12/12 17:08:00, Duration: 30 day, Stop date: 06/11/12 17:07:00 hydromorphone 0.2 6 mg, 30 mL, Route: IV, Initial 05/12/2012 05/14/2012 Discontinued mg/mL CLINICAL NEUROPSYCHOLOGIST (6 mg/30 Loading Dose: 0.4mg, CLINICAL NEUROPSYCHOLOGIST Dose: 0.2 mL) INJ Syringe 6 mg, CLINICAL NEUROPSYCHOLOGIST Lockout: 10 minutes, mg Continuous Basal Rate: 0 mg, 4 Hour Limit (In MG): 6, Drug Form: INJ, Continuous, Pain, Start date: 05/12/12 17:08:00, Duration: 30 day, Stop date: ... diphenhydrAMINE 12.5 mg, 0.25 mL, Route: IVP, Drug 05/12/2012 05/14/2012 Discontinued form: INJ, Q6H, PRN Itching, Start date: 05/12/12 17:08:00, Duration: 30 day, Stop date: 06/11/12 17:07:00 promethazine 12.5 mg, 0.5 mL, Route: IVPB, ONCE, 05/12/2012 05/14/2012 Discontinued PRN Nausea & Vomiting, Start date: 05/12/12 17:08:00 nalbuphine 2 mg, 0.2 mL, Route: IVP, Drug 05/12/2012 05/14/2012 Discontinued form: INJ, Q2H, PRN Itching, Start date: 05/12/12 17:08:00, Duration: 5 doses or times, Stop date: Limited # of times ondansetron 4 mg, 2 mL, Route: IVP, Drug form: 05/12/2012 05/14/2012 Discontinued INJ, ONCE, PRN Nausea & Vomiting, Start date: 05/12/12 17:08:00 Saline Flush 0.9% 5 ml, Route: IVP, Drug Form: INJ, 05/12/2012 05/16/2012 Discontinued PRN, PRN Line Flush, Start date: 05/12/12 17:08:00, Duration: 30 day, Stop date: 06/11/12 17:07:00 Sodium Chloride 0.9% 1,000 mL, Rate: 75 ml/hr, Infuse 05/12/2012 05/16/2012 Discontinued IV 1,000 mL over: 13.3 hr, Route: IV, Dosing Weight 85.455 kg, Total Volume: 1,000, Start date: 05/12/12 17:08:00, Stop date: 06/11/12 17:07:00 acetaminophen-oxycod 1 tab, Route: PO, Drug Form: TAB, 05/12/2012 05/16/2012 Discontinued one 325 mg-5 mg oral Q4H, PRN Pain Score 1-3, Start tablet date: 05/12/12 17:08:00, Duration: 30 day, Stop date: 06/11/12 17:07:00 diphenhydrAMINE 25 mg, 0.5 mL, Route: PO, Drug 05/12/2012 05/16/2012 Discontinued form: INJ, Q6H, PRN Itching, Start date: 05/12/12 17:08:00, Duration: 30 day, Stop date: 06/11/12 17:07:00 aluminum 30 ml, Route: PO, Q4H, PRN 05/12/2012 05/12/2012 Deleted hydroxide-magnesium Indigestion, Start date: 05/12/12 hydroxide 225 mg-200 17:08:00, Duration: 30 day, Stop mg/5 mL oral date: 06/11/12 17:07:00 suspension ondansetron 4 mg, 2 mL, Route: IVP, Drug form: 05/12/2012 05/16/2012 Discontinued INJ, Q4H, PRN Nausea & Vomiting, Start date: 05/12/12 17:08:00, Duration: 30 day, Stop date: 06/11/12 17:07:00 promethazine 12.5 mg, 0.5 mL, Route: IM, Drug 05/12/2012 05/16/2012 Discontinued form: INJ, Q4H, PRN Nausea & Vomiting, Start date: 05/12/12 17:08:00, Duration: 30 day, Stop date: 06/11/12 17:07:00 temazepam 15 mg, 1 cap, Route: PO, Drug form: 05/12/2012 05/16/2012 Discontinued CAP, Bedtime, PRN Insomnia, Start date: 05/12/12 17:08:00, Duration: 30 day, Stop date: 06/11/12 17:07:00 acetaminophen-oxycod 2 tab, Route: PO, Drug Form: TAB, 05/12/2012 05/16/2012 Discontinued one 325 mg-5 mg oral Q4H, PRN Pain Score 4-6, Start tablet date: 05/12/12 17:08:00, Duration: 30 day, Stop date: 06/11/12 17:07:00 cefazolin (SCIP) 2 gm, 100 mL, Route: IVPB, Drug 05/13/2012 05/13/2012 Completed form: INJ, Q8H, Start date: 05/13/12 0:00:00, Duration: 3 doses or times, Stop date: 05/13/12 16:00:00 cefazolin 2 gm, 100 mL, Route: IVPB, Drug 05/12/2012 05/12/2012 Discontinued form: INJ, ONCALL, Start date: 05/12/12 6:00:00, Duration: 1 day, Stop date: 05/13/12 5:59:00 Milk of Magnesia 30 ml, Route: PO, Drug Form: SUSP, 05/14/2012 05/16/2012 Discontinued PRN, PRN Constipation, Start date: 05/14/12 18:13:00, Duration: 30 day, Stop date: 06/13/12 18:12:00 pneumococcal 0.5 ml, Route: IM, Drug Form: INJ, 07/04/2011 07/06/2011 Completed 23-valent vaccine ONCALL, Start date: 07/04/11 18:10:51, Duration: 1 doses or times Dextrose 50% in 25 mL, Route: IVP, Start date: 05/12/2012 05/16/2012 Discontinued Water IV 05/12/12 22:36:00, Duration: 30 day, Stop date: 06/11/12 22:35:00, PRN Blood Glucose Results Dextrose 50% in 50 mL, Route: IVP, Start date: 05/12/2012 05/16/2012 Discontinued Water IV 05/12/12 22:36:00, Duration: 30 day, Stop date: 06/11/12 22:35:00, PRN Blood Glucose Results NovoLog FlexPen 5 unit, 0.05 mL, Route: SUB-Q, Drug 05/12/2012 05/16/2012 Discontinued form: SOLN, Sliding Scale, PRN Blood Glucose Results, Start date: 05/12/12 22:35:00, Duration: 30 day, Stop date: 06/11/12 22:34:00 NovoLog FlexPen 4 unit, 0.04 mL, Route: SUB-Q, Drug 05/12/2012 05/16/2012 Discontinued form: SOLN, Sliding Scale, PRN Blood Glucose Results, Start date: 05/12/12 22:35:00, Duration: 30 day, Stop date: 06/11/12 22:34:00 NovoLog FlexPen 3 unit, 0.03 mL, Route: SUB-Q, Drug 05/12/2012 05/16/2012 Discontinued form: SOLN, Sliding Scale, PRN Blood Glucose Results, Start date: 05/12/12 22:35:00, Duration: 30 day, Stop date: 06/11/12 22:34:00 NovoLog FlexPen 2 unit, 0.02 mL, Route: SUB-Q, Drug 05/12/2012 05/16/2012 Discontinued form: SOLN, Sliding Scale, PRN Blood Glucose Results, Start date: 05/12/12 22:35:00, Duration: 30 day, Stop date: 06/11/12 22:34:00 Tylenol 650 mg, 2 tab, Route: PO, Drug 05/14/2012 05/16/2012 Discontinued form: TAB, Q4H, PRN Pain Score 1-5, Start date: 05/14/12 18:11:00, Duration: 30 day, Stop date: 06/13/12 18:10:00 Tylenol 650 mg, Route: PO, Drug form: TAB, 05/14/2012 05/14/2012 Deleted Q6H, PRN Fever, Start date: 05/14/12 18:10:00, Duration: 30 day, Stop date: 06/13/12 18:09:00 NovoLog FlexPen 1 unit, 0.01 mL, Route: SUB-Q, Drug 05/12/2012 05/16/2012 Discontinued form: SOLN, Sliding Scale, PRN Blood Glucose Results, Start date: 05/12/12 22:35:00, Duration: 30 day, Stop date: 06/11/12 22:34:00 enoxaparin 30 mg, 0.3 mL, Route: SUB-Q, Drug 05/12/2012 05/16/2012 Discontinued form: INJ, [id number], Start date: 05/12/12 18:00:00, Duration: 30 day, Stop date: 06/11/12 6:00:00, Give first dose 12 hours after surgery Give first dose 12 hours after surgery Immunizations Vaccine Date Status pneumococcal 23-valent vaccine 07/06/2011 Auth (Verified) Vital Signs Most recent to oldest [Reference Range]: 1 2 3 Height 162.56 cm (05/08/2012 07:29:00) Temperature Oral [96.4-99.1 DegF] 98.4 DegF (05/16/2012 15:55:00) 98.6 DegF (05/16/2012 12:19:00) 98.8 DegF (05/16/2012 08:05:00) Systolic Blood Pressure [90-140 mmHg] 125 mmHg (05/16/2012 15:55:00) 110 mmHg (05/16/2012 12:19:00) 141 mmHg *HI* (05/16/2012 08:05:00) Diastolic Blood Pressure [60-90 mmHg] 52 mmHg *LOW* (05/16/2012 15:55:00) 47 mmHg *LOW* (05/16/2012 12:19:00) 54 mmHg *LOW* (05/16/2012 08:05:00) Respiratory Rate [14-20 BRMIN] 16 BRMIN (05/16/2012 15:55:00) 16 BRMIN (05/16/2012 12:19:00) 16 BRMIN (05/16/2012 08:05:00) Peripheral Pulse Rate [60-100 bpm] 63 bpm (05/16/2012 15:55:00) 62 bpm (05/16/2012 12:19:00) 71 bpm (05/16/2012 08:05:00) Weight 85.455 kg (05/08/2012 07:29:00) Results BACTERIAL - SEROLOGY Most recent to [Reference Range]: 1 2 3 MRSA by PCR Negative 1 (05/08/2012 07:43:00) 1Interpretive Data: INTERPRETATION: Negative......No MRSA DNA detected by PCR Positive......MRSA DNA detected by PCRASSAY LIMITATIONS:This is a screening test for colonization by MRSA. A positive test result indicates the patient is c olonized by MRSA, but does not necessarily mean that an infection is present or that treatment is necessary. Likewise, a negative test does not exclude coloniz ation or infection. Patients should be evaluatedclinically for symptoms and sig ns of infection before making therapeutic decisions. Routine decolonization is discouraged and should only be considered for select patients after consultation with an infectious diseases specialist. BEDSIDE GLUCOSE TESTING Most recent to [Reference Range]: 1 2 3 Gluc POC Lifscn [70-99 mg/dL] 122 mg/dL 2 *HI* (05/16/2012 11:49:00) 98 mg/dL 3 (05/16/2012 05:52:00) 115 mg/dL 4 *HI* (05/15/2012 20:43:00) Comment1 Notify RN/MD *NA* (05/16/2012 11:49:00) Notify RN/MD *NA* (05/16/2012 05:52:00) Notify RN/MD *NA* (05/15/2012 20:43:00) 2Interpretive Data: Upper Reportable Limit: 200 mg/dL. 3Interpretive Data: Upper Reportable Limit: 200 mg/dL. 4Interpretive Data: Upper Reportable Limit: 200 mg/dL. URINALYSIS Most recent to oldest [Reference Range]: 1 2 3 UA Turbidity [Clear] Clear (05/08/2012 07:43:00) UA Color [Yellow] Yellow *NA* (05/08/2012 07:43:00) UA pH [5.0-8.0] 6.0 (05/08/2012 07:43:00) UA Spec Grav [<=1.030] 1.018 (05/08/2012 07:43:00) UA Glucose [Negative mg/dL] Negative mg/dL *NA* (05/08/2012 07:43:00) UA Blood [Negative] Negative (05/08/2012 07:43:00) UA Ketones [Negative mg/dL] Negative mg/dL *NA* (05/08/2012 07:43:00) UA Protein [Negative mg/dL] Negative mg/dL (05/08/2012 07:43:00) UA Urobilinogen [0.1-1.0 mg/dL] <=1.0 mg/dL *NA* (05/08/2012 07:43:00) UA Bili [Negative] Negative *NA* (05/08/2012 07:43:00) UA Leuk Est [Negative] Negative (05/08/2012 07:43:00) UA Nitrite [Negative] Negative (05/08/2012 07:43:00) Micro? Not Indicated *NA* (05/08/2012 07:43:00) BLOOD BANK RESULTS Most recent to oldest [Reference Range]: 1 2 3 ABO/Rh O POS *Unknown* (05/13/2012 19:55:00) Antibody Scrn Negative (05/13/2012 19:55:00) RBC product Product available 5 (05/13/2012 19:55:00) 5Result Comment: 05/13/2012 21:35 [id number] JOHNSON CHEMISTRY Most recent to oldest [Reference Range]: 1 2 3 Sodium Lvl [135-145 mEq/L] 142 mEq/L (05/16/2012 05:10:00) 141 mEq/L (05/15/2012 06:36:00) 141 mEq/L (05/13/2012 04:57:00) Potassium Lvl [3.5-5.1 mEq/L] 3.9 mEq/L (05/16/2012 05:10:00) 3.9 mEq/L (05/15/2012 06:36:00) 4.2 mEq/L (05/13/2012 04:57:00) Chloride Lvl [95-109 mEq/L] 106 mEq/L (05/16/2012 05:10:00) 105 mEq/L (05/15/2012 06:36:00) 104 mEq/L (05/13/2012 04:57:00) CO2 [24-32 mEq/L] 27 mEq/L (05/16/2012 05:10:00) 26 mEq/L (05/15/2012 06:36:00) 25 mEq/L (05/13/2012 04:57:00) AGAP [10.0-20.0 mEq/L] 12.9 mEq/L (05/16/2012 05:10:00) 13.9 mEq/L (05/15/2012 06:36:00) 16.2 mEq/L (05/13/2012 04:57:00) Creatinine Lvl [0.5-1.4 mg/dL] 0.5 mg/dL 6 (05/16/2012 05:10:00) 0.7 mg/dL (05/15/2012 06:36:00) 0.7 mg/dL (05/13/2012 04:57:00) BUN [7-22 mg/dL] 14 mg/dL (05/16/2012 05:10:00) 16 mg/dL (05/15/2012 06:36:00) 13 mg/dL (05/13/2012 04:57:00) B/C Ratio [6-25] 23 (05/08/2012 08:00:00) Glucose Lvl [70-99 mg/dL] 108 mg/dL 7 *HI* (05/16/2012 05:10:00) 87 mg/dL 8 (05/15/2012 06:36:00) 156 mg/dL 9 *HI* (05/13/2012 04:57:00) Total Protein [6.4-8.4 g/dL] 7.7 g/dL (05/08/2012 08:00:00) Albumin Lvl [3.5-5.0 g/dL] 3.8 g/dL (05/08/2012 08:00:00) Globulin [2.0-4.0 g/dL] 3.9 g/dL (05/08/2012 08:00:00) A/G Ratio [0.7-1.6] 1.0 (05/08/2012 08:00:00) Calcium Lvl [8.5-10.5 mg/dL] 7.4 mg/dL *LOW* (05/16/2012 05:10:00) 7.4 mg/dL *LOW* (05/15/2012 06:36:00) 7.1 mg/dL *LOW* (05/13/2012 04:57:00) ALT [0-65 U/L] 37 U/L (05/08/2012 08:00:00) AST [0-37 U/L] 29 U/L (05/08/2012 08:00:00) Alk Phos [39-136 U/L] 53 U/L (05/08/2012 08:00:00) Bili Total [0.2-1.3 mg/dL] 0.4 mg/dL (05/08/2012 08:00:00) T4 Free [0.76-1.46 ng/dL] 2.44 ng/dL *HI* (05/15/2012 06:36:00) TSH [0.360-3.740 uIU/mL] 0.033 uIU/mL *LOW* (05/15/2012 06:36:00) 6Result Comment: reviewed 05/16/2012 6:05 gr 7Interpretive Data: Adult reference range values reflect the clinical guidelinesof the [place] [employer]. 8Interpretive Data: Adult reference range values reflect the clinical guidelinesof the [place] [employer]. 9Interpretive Data: Adult reference range values reflect the clinical guidelinesof the [place] [employer]. HEMATOLOGY Most recent to oldest [Reference Range]: 1 2 3 WBC [3.7-10.4 K/CMM] 7.0 K/CMM (05/16/2012 05:10:00) 8.6 K/CMM (05/15/2012 06:36:00) 7.8 K/CMM (05/13/2012 04:57:00) RBC [4.20-5.40 M/CMM] 2.90 M/CMM *LOW* (05/16/2012 05:10:00) 2.97 M/CMM *LOW* (05/15/2012 06:36:00) 2.56 M/CMM *LOW* (05/13/2012 04:57:00) Hgb [12.0-16.0 g/dL] 8.9 g/dL *LOW* (05/16/2012 05:10:00) 9.4 g/dL *LOW* (05/15/2012 06:36:00) 8.4 g/dL *LOW* (05/13/2012 04:57:00) Hct [36.0-48.0 %] 26.5 % *LOW* (05/16/2012 05:10:00) 26.5 % *LOW* (05/15/2012 06:36:00) 23.7 % *LOW* (05/13/2012 04:57:00) MCV [81.0-99.0 fL] 91.6 fL (05/16/2012 05:10:00) 89.4 fL (05/15/2012 06:36:00) 92.6 fL (05/13/2012 04:57:00) MCH [27.0-31.0 pg] 30.7 pg (05/16/2012 05:10:00) 31.8 pg *HI* (05/15/2012 06:36:00) 32.9 pg *HI* (05/13/2012 04:57:00) MCHC [32.0-36.0 g/dL] 33.5 g/dL (05/16/2012 05:10:00) 35.5 g/dL (05/15/2012 06:36:00) 35.5 g/dL (05/13/2012 04:57:00) RDW [11.5-14.5 %] 14.0 % (05/16/2012 05:10:00) 14.1 % (05/15/2012 06:36:00) 12.1 % (05/13/2012 04:57:00) Platelet [133-450 K/CMM] 149 K/CMM (05/16/2012 05:10:00) 133 K/CMM (05/15/2012 06:36:00) 121 K/CMM *LOW* (05/13/2012 04:57:00) MPV [7.4-10.4 fL] 7.5 fL (05/16/2012 05:10:00) 8.0 fL (05/15/2012 06:36:00) 8.2 fL (05/13/2012 04:57:00) Segs [45.0-75.0 %] 69.4 % (05/16/2012 05:10:00) 75.7 % *HI* (05/15/2012 06:36:00) 77.5 % *HI* (05/13/2012 04:57:00) Lymphocytes [20.0-40.0 %] 19.6 % *LOW* (05/16/2012 05:10:00) 15.0 % *LOW* (05/15/2012 06:36:00) 13.0 % *LOW* (05/13/2012 04:57:00) Monocytes [2.0-12.0 %] 8.9 % (05/16/2012 05:10:00) 8.0 % (05/15/2012 06:36:00) 9.1 % (05/13/2012 04:57:00) Eosinophils [0.0-4.0 %] 1.7 % (05/16/2012 05:10:00) 0.9 % (05/15/2012 06:36:00) 0.0 % (05/13/2012 04:57:00) Basophils [0.0-1.0 %] 0.4 % (05/16/2012 05:10:00) 0.4 % (05/15/2012 06:36:00) 0.4 % (05/13/2012 04:57:00) Segs-Bands # [1.5-8.1 K/CMM] 4.9 K/CMM (05/16/2012 05:10:00) 6.5 K/CMM (05/15/2012 06:36:00) 6.1 K/CMM (05/13/2012 04:57:00) Lymphocytes # [1.0-5.5 K/CMM] 1.4 K/CMM (05/16/2012 05:10:00) 1.3 K/CMM (05/15/2012 06:36:00) 1.0 K/CMM (05/13/2012 04:57:00) Monocytes # [0.0-0.8 K/CMM] 0.6 K/CMM (05/16/2012 05:10:00) 0.7 K/CMM (05/15/2012 06:36:00) 0.7 K/CMM (05/13/2012 04:57:00) Eosinophils # [0.0-0.5 K/CMM] 0.1 K/CMM (05/16/2012 05:10:00) 0.1 K/CMM (05/15/2012 06:36:00) 0.0 K/CMM (05/13/2012 04:57:00) Basophils # [0.0-0.2 K/CMM] 0.0 K/CMM (05/15/2012 06:36:00) 0.0 K/CMM (05/13/2012 04:57:00) Macrocyte [None Seen] 1+ *ABN* (05/08/2012 08:00:00) PT [12.0-14.7 seconds] 13.5 seconds (05/08/2012 08:00:00) INR [0.85-1.17] 1.03 10 (05/08/2012 08:00:00) PTT [22.9-35.8 seconds] 30.4 seconds 11 (05/08/2012 08:00:00) 10Interpretive Data: RECOMMENDED RANGES FOR PROTIME INR: 2.0-3.0 for most medical and surgical thromboembolic states. 2.5-3.5 for artificial heart valves and recurrent embolism.INR SHOULD BE USED ONLY FOR PATIENTS ON STABLE ANTICOAGULANT THERAPY. 11Interpretive Data: Heparin Therapeutic Range: 57 - 92 Seconds IMMUNOLOGY Most recent to oldest [Reference Range]: 1 2 3 Prealbumin [18.0-45.0 mg/dL] 10.5 mg/dL *LOW* (05/15/2012 06:36:00) HIV 1/2 Ab [Negative] Negative *NA* (05/08/2012 08:00:00) Hep C Ab [Negative] Positive *NA* (05/08/2012 08:00:00)
--- OUTSIDE RECORDS SUMMARY | 2019-08-04 19:10 | XMS REPORT | Summary of Care ---
Author Author [facility] [place] Organization [facility] [place] Address Unknown Phone Unavailable Encounter [facility] Agusto_johanna(FIN) [phone] Date(s): 08/25/18 - 08/26/18 [facility] [place] [address] [place] [address]- Vital Signs No data available for this [...]
--- OUTSIDE RECORDS SUMMARY | 2019-08-04 19:10 | XMS REPORT | Summary of Care ---
Author Author [facility] Organization [facility] Address Unknown Phone Unavailable Encounter [facility] Agusto_johanna(FIN) [phone] Date(s): 09/04/18 - 09/04/18 [facility] [address] [place] [address] [phone] Encounter Diagnosis Traumatic subdural hemorrhage with loss of consciousness of unspecified duration , initial encounter (Final) - 09/09/18 Discharge Disposition: Home or Self Care Attending Physician: Kareem Josue MD Referring Physician: Kareem Josue MD Vital Signs No data available for [...]
--- OUTSIDE RECORDS SUMMARY | 2019-08-04 19:10 | XMS REPORT | Summary of Care ---
Author Author BHARATI Neurosurgery [facility] Organization [facility] Neurosurgery [facility] Address Unknown Phone Unavailable Encounter HQ Agusto_johanna(FIN) [phone] Date(s): 08/28/18 - 08/29/18 [facility] Neurosurgery [facility] [address] [place] [address]- Vital Signs No data available for this [...]
--- NOTE | 2019-08-04 20:22 | Diagnostic Imaging Report ---
Exam: Lumbar spine AP lateral History: Back pain Comparison: None. Findings: No acute fracture. Chronic pars defect of L5 with grade 1 anterolisthesis. Multilevel degenerative endplate change with multilevel disc space narrowing. Impression: No acute osseous abnormality Chronic pars defect of L5 with grade 1 anterolisthesis Multilevel lumbar spondylosis Signed by: Dr. Hakan Camarena M.D. on 08/04/2019 8:19 PM
--- NOTE | 2019-08-04 20:24 | Diagnostic Imaging Report ---
Exam: Right hip 2 views History: Pain Comparison: None. Findings: No acute fracture. 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 Scattered enthesophyte change. Impression: No acute osseous abnormality Mild degenerative arthrosis of the hips Signed by: Dr. Hakan Camarena M.D. on 08/04/2019 8:21 PM
[2019-08-04 23:22] VITALS: BP 127/79
[2019-08-04] MEDS ORDERED: ACETAMINOPHEN/CODEINE 300MG - 30MG TAB PO ONE (23:30)
== END 2019-08-05 00:30 | disposition home or self-care (01) ==
LOC: ER 19:02
DX: M54.5 Low back pain (principal); S39.012A Strain of muscle, fascia and tendon of lower back, initial encounter; M25.552 Pain in left hip; I10 Essential (primary) hypertension; E11.9 Type 2 diabetes mellitus without complications; Z96.653 Presence of artificial knee joint, bilateral
CPT/HCPCS: 72100; 99283